=== PATIENT | female | born 1995 | race Caucasian/White ===

== ENCOUNTER → 2017-07-23 20:07 | Outpatient (CLI) | payer OTHER, SELFPAY ==
[2017-08-01 10:03] LABS: HPV Reflexed? NOT INDICATED
== END ==
PROVIDERS: PCP Obstetrics & Gynecology; Visit Provider Obstetrics & Gynecology
DX: Z12.4 Encounter for screening for malignant neoplasm of cervix (principal)
CPT/HCPCS: 88175; G0145

== ENCOUNTER → 2017-08-16 18:33 | Outpatient (CLI) | payer OTHER, SELFPAY ==
--- NOTE | 2017-08-16 11:00 | CER_PTH ---
PATIENT: LASHA CARR LOC: [facility] U#:[id number] AGE/SX: 29/F ROOM: RE08/16/[address]: Dr. Ilsa Figueroa MD : 1995 BED: DIS: SPEC #: [id number] RECD: 08/16/17 18:27 STATUS: SARAH MELANIE #: [id number] KENDAL: 08/16/17 11:[address]: Ilsa Figueroa DEPT: SURGICAL PATHOLOGY RECD BY: Colt Castillo Tissues: A - Uterine cervix, NOS B - Uterine cervix, NOS C - Endocervical Procedures: Surgery Specimen Level IV HEADER OPERATION: Colposcopy PRE-OP DIAGNOSIS: Abnormal pap TISSUE SUBMITTED: A ? 11 o?clock, B ? 3 o?clock, C - ECC MICROSCOPIC DIAGNOSIS A. Cervix, 11 o?clock, biopsy: Fragment of benign ecto- and endocervical mucosa with acute and chronic inflammation, negative for dysplasia. B. Cervix, 3 o?clock, biopsy: Fragment of benign ecto- and endocervical mucosa, negative for dysplasia. C. ECC: Scant minute fragment of benign endocervical epithelium, negative for dysplasia. CLIFTON:susanne 08/20/17 MICROSCOPIC DESCRIPTION Slides are reviewed. GROSS DESCRIPTION A - Received in fixative is one container labeled with the patient's name and designated 11 o'clock. The specimen consists of one irregular fragment of light escboedo soft tissue that measures 0.2 x 0.2 x 0.1 cm. The specimen is totally submitted in one cassette. B - Received in fixative is one container labeled with the patient's name and designated 3 o'clock. The specimen consists of one irregular fragment of light escobedo soft tissue that measures 0.5 x 0.4 x 0.1 cm. The specimen is totally submitted in one cassette. C - Received in fixative is one container labeled with the patient's name and designated ECC. The specimen consists of multiple irregular fragments of escobedo mucoid tissue that in aggregate measure 0.5 x 0.5 x 0.1 cm. The specimen is totally submitted in one cassette. / CLIFTON:susanne 08/19/17 TC:3 CPT: 87835 x3
== END ==
PROVIDERS: Visit Provider Obstetrics & Gynecology
DX: R87.611 Atypical squamous cells cannot exclude high grade squamous intraepithelial lesion on cytologic smear of cervix (ASC-H) (principal)
CPT/HCPCS: 88305

== ENCOUNTER → 2018-02-28 18:31 | Outpatient (CLI) | payer OTHER, SELFPAY ==
[2018-02-28 15:12] VITALS: BMI 28.2
[2018-03-06 08:50] LABS: HPV Reflexed? NOT INDICATED
== END ==
PROVIDERS: Referring Provider Obstetrics & Gynecology; Visit Provider Obstetrics & Gynecology
DX: Z12.4 Encounter for screening for malignant neoplasm of cervix (principal)
CPT/HCPCS: 87624; 88175; G0145

== ENCOUNTER → 2018-09-16 | Outpatient (CLI) | payer OTHER, SELFPAY ==
[2018-09-16 08:33] VITALS: BMI 28.2
[2018-09-22 12:25] LABS: HPV APTIMA, High Risk Negative (Negative)
[2018-09-22 13:27] LABS: HPV Reflexed? YES, CHARGE PATIENT
== END | disposition home or self-care (01) ==
LOC: LABSPEC 13:11
PROVIDERS: Referring Provider Obstetrics & Gynecology; Visit Provider Obstetrics & Gynecology
DX: R87.611 Atypical squamous cells cannot exclude high grade squamous intraepithelial lesion on cytologic smear of cervix (ASC-H) (principal)
CPT/HCPCS: 87624; 88175; G0145

== ENCOUNTER → 2019-06-22 | Outpatient (CLI) | payer OTHER, SELFPAY ==
[2019-06-22 15:44] VITALS: BMI 28.2
[2019-06-23 09:01] LABS: Amphetamine Urine VISTA NEGATIVE (<1000 ng/mL); Barbiturate Urine VISTA NEGATIVE (< 200 ng/mL); Benzodiazepine Urine VISTA NEGATIVE (< 200 ng/mL); Cocaine Urine VISTA NEGATIVE (< 300 ng/mL); Ecstacy Urine VISTA NEGATIVE (< 500 ng/mL); Methadone Urine VISTA NEGATIVE (< 300 ng/mL); PCP Urine VISTA NEGATIVE (< 25 ng/mL); THC Urine VISTA NEGATIVE (< 50 ng/mL); Vista UDS pH Range 6
[2019-06-23 11:57] LABS: Chlamydia Trachomatis by PCR Negative (Negative); Neisserai gonorrhoeae by PCR Negative (Negative); Specimen Processing Control PASS
[2019-06-23 11:58] LABS: Probe Check PASS; Sample Adequacy Control PASS
== END | disposition home or self-care (01) ==
LOC: LABSPEC 06-23 08:22
PROVIDERS: Visit Provider Obstetrics & Gynecology
DX: Z34.90 Encounter for supervision of normal pregnancy, unspecified, unspecified trimester (principal)
CPT/HCPCS: 80307; 87086; 87088; 87491; 87591

== ENCOUNTER → 2019-06-22 | Outpatient (CLI) | payer OTHER, SELFPAY ==
[2019-06-22 15:44] VITALS: BMI 28.2
[2019-06-22 16:58] LABS: Absolute Neutrophil Count 10.3 X10^3/uL (2.0-7.7); Basophil# 0.06 X10^3/uL; Basophil% 0.5 % (0-1); Eosinophil# 0.08 X10^3/uL; Eosinophils% 0.6 % (0-5); Hematocrit 40.7 % (37-47); Lymphocyte % 12.5 % (19-41); Mean Corp Hgb Conc 34.4 g/dL (32-36); Mean Corpuscular Hgb 29.2 pg (27.0-32.0); Mean Platelet Vol. 9.5 fl (6.2-12.0); Monocyte% 5.5 % (0-10); NRBC Flagged by Analyzer 0 % (0-5); Neutrophil # 10.34 X10^3/uL (2.7-7.7); Neutrophil % 80.5 % (47-70); Platelet Count 143 K/mm3 (150-450); RBC Distribution Width CV 11.9 % (11.6-14.6); RBC Distribution Width SD 36.7 fl (35.1-43.9); Red Blood Count 4.79 M/mm3 (4.2-5.4); White Blood Count 12.8 K/mm3 (4.4-11.0)
[2019-06-23 09:19] LABS: HIV - WCH Non-Reactive (Nonreactive); Hepatitis B Surface Antigen Non-Reactive (Nonreactive); Hepatitis C Antibody Non-Reactive (Nonreactive); Rubella IgG 8.7 IU/mL
[2019-06-24 23:59] LABS: Rapid Plasmin Reagin (RPR) NONREACTIVE (NONREACTIVE)
== END | disposition home or self-care (01) ==
LOC: LAB 16:37
PROVIDERS: Referring Provider Obstetrics & Gynecology; Visit Provider Obstetrics & Gynecology
DX: Z34.90 Encounter for supervision of normal pregnancy, unspecified, unspecified trimester (principal)
CPT/HCPCS: 36415; 85025; 86592; 86703; 86762; 86803; 86850; 86900; 86901; 87340

== ENCOUNTER → 2019-08-25 | Outpatient (CLI) | payer OTHER, SELFPAY ==
[2019-07-22 11:19] VITALS: BMI 28.2
[2019-08-20 13:28] VITALS: BMI 28.2
--- NOTE | 2019-08-25 12:29 | US_ITS ---
STUDY: SECOND AND THIRD TRIMESTER OBSTETRICAL ULTRASOUND REASON FOR EXAM: Female, 23 years old ANATOMY routine survey LMP: 04/10/2019 TECHNIQUE: Transabdominal TECHNICAL QUALITY: Adequate. PRIOR ULTRASOUND: None. FINDINGS: There is a single intrauterine fetus. The fetus is in a breech presentation. There is demonstrated cardiac activity with a heart rate of 160 bpm. There is a normal amniotic fluid volume. The largest amniotic fluid pocket measures 4.9 x 3.5 cm. . The placenta is anterior in location and is not low lying. There are Grade 1 placental changes. Incidental note is made of a 1.5 cm placental reeves. The cervix measures 4.7 cm in length. The adnexal regions are not visualized. BIOMETRY: BPD: 4.21 cm: 18 weeks, 5 days HC: 15.96 cm: 18 weeks, 5 days AC: 14.08 cm: 19 weeks, 3 days FL: 2.97 cm: 19 weeks, 1 days OFD 5.56 cm: 19 weeks, 2 days age by current US: 19 weeks, 1 days. SOPHIA by current US: 01/18/2020. Estimated weight: 282 grams, +/- 42 grams, 34.5 %. Age by LMP: 19 weeks, 4 days. SOPHIA by LMP: 01/15/2020. ANATOMY: Gender: Male Cranium: Normal lateral ventricles. Normal choroid plexus. Normal cerebellum. Normal cisterna magna. Normal face, nose and lips. Chest: Normal 4-chamber heart. Abdomen/Pelvis: Normal diaphragm. Normal stomach. Normal abdominal wall. Normal cord insertion. Normal 3 vessel cord. Normal kidneys. Normal bladder. Spine: Normal cervical spine. Normal thoracic spine. Normal lumbar spine. Normal sacrum. Extremities: Normal bilateral upper extremities. Normal bilateral lower extremities. US/OB Anatomy Scan IMPRESSION: Single live intrauterine 19 weeks, 1 day by current ultrasound with SOPHIA of 01/18/2020. Heart rate of 160 bpm. No suspicious sonographic findings. Incidental note is made of a 1.5 cm placental reeves which could be followed on subsequent routine follow-up ultrasounds. Presentation of the fetus on this study is breech Electronically Signed: Raul Jones MD at 7:36 EDT , Service support ,
== END | disposition home or self-care (01) ==
PROVIDERS: Referring Provider Obstetrics & Gynecology; Visit Provider Obstetrics & Gynecology
DX: Z36.9 Encounter for antenatal screening, unspecified (principal)
CPT/HCPCS: 76805

== ENCOUNTER → 2019-10-29 | Outpatient (CLI) | payer OTHER, SELFPAY ==
[2019-10-15 08:18] VITALS: BMI 28.2
[2019-10-29 10:05] LABS: Absolute Lymphocyte Count 1.08 X10^3/uL (0.83-4.51); Absolute Neutrophil Count 8.7 X10^3/uL (2.0-7.7); Basophil# 0.04 X10^3/uL; Basophil% 0.4 % (0-1); Eosinophil# 0.08 X10^3/uL; Eosinophils% 0.8 % (0-5); Hematocrit 37.2 % (37-47); Hemoglobin 12.6 g/dL (12.0-15.0); Lymphocyte # 1.08 X10^3/ul (4.0); Lymphocyte % 10.3 % (19-41); Mean Corp Hgb Conc 33.9 g/dL (32-36); Mean Corpuscular Hgb 31.3 pg (27.0-32.0); Mean Corpuscular Volume 92.3 fL (81-99); Mean Platelet Vol. 9.3 fl (6.2-12.0); Monocyte# 0.46 X10^3/uL; Monocyte% 4.4 % (0-10); NRBC Flagged by Analyzer 0 % (0-5); Neutrophil # 8.71 X10^3/uL (2.7-7.7); Neutrophil % 82.8 % (47-70); Platelet Count 114 K/mm3 (150-450); RBC Distribution Width CV 12.4 % (11.6-14.6); RBC Distribution Width SD 41.8 fl (35.1-43.9); Red Blood Count 4.03 M/mm3 (4.2-5.4); White Blood Count 10.5 K/mm3 (4.4-11.0)
[2019-10-29 10:22] LABS: Glucose Challenge Gest 1H 50g 129 mg/dL (70-140)
== END | disposition home or self-care (01) ==
LOC: PAVLAB 09:48
PROVIDERS: Obstetrics & Gynecology; Referring Provider Obstetrics & Gynecology; Visit Provider Obstetrics & Gynecology
DX: O09.90 Supervision of high risk pregnancy, unspecified, unspecified trimester (principal); Z36.89 Encounter for other specified antenatal screening; Z3A.00 Weeks of gestation of pregnancy not specified
CPT/HCPCS: 36415; 82950; 85025

== ENCOUNTER → 2019-12-24 | Outpatient (CLI) | payer OTHER, SELFPAY ==
[2019-12-24 11:22] VITALS: BMI 36.5
== END | disposition home or self-care (01) ==
LOC: LABSPEC 13:18
PROVIDERS: Referring Provider Obstetrics & Gynecology; Visit Provider Obstetrics & Gynecology
DX: O09.90 Supervision of high risk pregnancy, unspecified, unspecified trimester (principal); Z3A.00 Weeks of gestation of pregnancy not specified
CPT/HCPCS: 87077; 87081; 87186

== ENCOUNTER → 2020-01-01 10:27 | Outpatient (CLI) | payer OTHER, SELFPAY ==
[2019-12-10 11:06] VITALS: BMI 28.2
[2019-12-31 10:31] VITALS: BMI 36.9
== END ==
PROVIDERS: Referring Provider Obstetrics & Gynecology; Visit Provider Obstetrics & Gynecology
DX: Z11.59 Encounter for screening for other viral diseases (principal)
CPT/HCPCS: 87635; C9803; U0003

== ENCOUNTER 2020-01-08 09:30 | Inpatient (IN) | payer OTHER, SELFPAY ==
[2019-12-24 11:22] VITALS: BMI 36.5
[2020-01-07 10:42] VITALS: BMI 36.6
[2020-01-08] VITALS (18 sets, daily range): BP systolic 98–136; BP diastolic 46–75; PULSE 88–112; RESP 13–16; TEMP 35.9–37; O2SAT 95–100; BMI 36.6
[2020-01-08] MEDS: Lactated Ringers 1,000 ML 999 ML IV (10:00)
[2020-01-08 10:23] LABS: Absolute Lymphocyte Count 1.04 X10^3/uL (0.83-4.51); Absolute Neutrophil Count 8.1 X10^3/uL (2.0-7.7); Basophil# 0.04 X10^3/uL; Basophil% 0.4 % (0-1); Eosinophil# 0.06 X10^3/uL; Eosinophils% 0.6 % (0-5); Hematocrit 40.8 % (37-47); Hemoglobin 13.5 g/dL (12.0-15.0); Lymphocyte # 1.04 X10^3/ul (4.0); Lymphocyte % 10.3 % (19-41); Mean Corp Hgb Conc 33.1 g/dL (32-36); Mean Corpuscular Hgb 30.4 pg (27.0-32.0); Mean Corpuscular Volume 91.9 fL (81-99); Mean Platelet Vol. 9.8 fl (6.2-12.0); Monocyte# 0.61 X10^3/uL; Monocyte% 6.1 % (0-10); NRBC Flagged by Analyzer 0 % (0-5); Neutrophil # 8.12 X10^3/uL (2.7-7.7); Neutrophil % 80.8 % (47-70); Platelet Count 101 K/mm3 (150-450); RBC Distribution Width CV 12.6 % (11.6-14.6); Red Blood Count 4.44 M/mm3 (4.2-5.4); White Blood Count 10.1 K/mm3 (4.4-11.0)
--- NOTE | 2020-01-08 11:15 | HP.PCM_ITS ---
- Problem List (1) 36 weeks gestation of Status: Acute Comment: covid testing ordered 12/23/19c (test completed on 01/01/20) negative results (2) Breech presentation Status: Acute Qualifiers: Comment: Baby persistently cathi breech on US. Discussed ECV vs. PCD. Patient desires primary at 39 weeks unless verts spontaneously before this time. (3) History of abnormal cervical Pap smear Status: Acute Comment: 09/19 nl pap neg hpv, plan repeat pap PP, previous ascus cannot exclude HGSIL (4) Influenza vaccination declined Status: Acute Comment: 11/26/2019sc (5) Positive GBS test Status: Acute (6) Status: Acute Qualifiers: Comment: declines carrier, genetic, and ntd screening. anatomy US normal (7) Rubella non-immune status, antepartum Status: Acute Comment: recommend disease avoidance, Needs MMR pp (8) Supervision of high-risk Status: Acute Qualifiers: Comment: PRR SOPHIA 01/15/20 Boy! Name undecided, Kana History and Physical Date of Admission: 01/08/20 Intake Vital Signs 01/07/20 Height 5 ft 7 in 01/07/20 Weight: 234 lb 01/07/20 BMI 36.6 01/07/20 BP 120/82 H Intake Visit Reasons: 38 WK OB Chief Complaint: est ob [employer] Required: No Is patient in pain?: No Allergies No Known Allergies Allergy (Verified 01/07/20 10:42) Medications vitamin#30 30 mg iron-10 mg iron-folic acid 1 mg-omg3 capsule cap PO 06/22/19 [History Confirmed 01/07/20] cetirizine 10 mg capsule 10 mg PO DAILY 08/20/19 [History Confirmed 01/07/20] famotidine 20 mg tablet 20 mg PO DAILY #30 tab 11/12/19 [Rx Confirmed 01/07/20] Last Menstral Period: 04/10/19 Zika: Zika virus screening: Negative : No PFSH PFSH Medical History Anxiety (Acute) Surgical History H/O knee surgery (Acute) Social History (Updated 01/07/20 @ 11:[address] Ilsa Figueroa MD) Smoking Status: Never smoker alcohol intake: current details: pre substance use type: does not use caffeine: Yes what type of physical activity do you participate in: walking seatbelt use: always do you feel safe at home: Yes additional social history: - Kana [employer] Pregancy History 1 Elective abortions Hx Para Spontaneous abortions Hx # Term Pregnancies Ectopic pregnancies Hx # Pregnancies Multiple births # of living children HPI 38 WK OB: Details: LASHA CARR is a 24 year old who presents for routine OB visit. planned cesaeran for breech tomorrow with Dr Simms. repeat US Breech today. OB Visit SOPHIA Calculator Estimated Delivery Date Method Current WG Current Estimate 01/15/20 LMP (Certain) 38w 6d Expected Delivery Route/Plan PCD unless cephalic by 39 weeks Labor Preferences- / classes: done labor support person: Kana pain management options preferred: desires natural labor, but agreeable to epidural. Trying to keep an open mind. cut cord/dad catch: cord only : Yes PP control planned: Considering OCPs discussed possible routes of delivery and associated risks: [] special requests: [] Specific Issue/Plans flu vaccine: declined tdap: consdering rhogam: NA LARC form signed: yes - declines Problem list reviewed and updated with the most current plan of care details and appropriate orders placed. Relevant counseling for the gestational age provided. Continue routine care and follow up unless otherwise noted in visit notes/problem list details Initial Weight: Not Recorded Date EGA Weight BP Urine Prot Glucose FHR FuHt Pres Dilation Effaced St Visit Note 07/22/19 14w 5d 205 lb 110/72 Negative Negative 152 MH-NO Vb, LOF. Reviewed labs, rubella nonimmune. Anatomy US scheduled. 08/20/19 18w 6d 208 lb 118/76 Negative Negative 164 MH-No VB, LOF. Starting to feel flutters. 09/17/19 22w 6d 116/78 Negative Negative 140 Sm- no vb lof good fm no regular ctx 10/15/19 26w 6d 110/80 Negative Negative GP - no LOF/VB/DFM/ctx. Having RLQ pain, but nontender on exam and parts palpable at site of pain. 10/29/19 28w 6d 224 lb 112/74 Negative Negative 150 28 GP - no LOF/VB/DFM/ctx. Doing well passed GTT. Wants to read more about TDAP. 11/12/19 30w 6d 120/72 Negative Negative 140 32 Breech SM- no vb lof good fm no regular ctx dec flu encouraged. 11/26/19 32w 6d 229 lb 120/74 Negative 1000 g/dL 148 33 Unstable MH-NO Vb, LOF. Good FM. Thinks baby turned. ?cephalic. US not available, check next visit. tdap. 12/10/19 34w 6d 232 lb 8 oz 138/80 Negative Negative 140 34 Breech GP - no LOF, VB, DFM, ctx. Remains cathi breech. Will discuss ECV next visit if still breech. 12/24/19 36w 6d 233 lb 118/86 Negative Negative 140 36 Breech GP - no LOF, VB, DFM, ctx. Baby remains breech. Discussed risks and benefits of ECV. Patient declines version. Plan PCD at 39 weeks unless patient verts spontaneously. 12/31/19 37w 6d 236 lb 112/82 140 37 Breech SM- no vb lof good fm no regular ctx 01/07/20 38w 6d 234 lb 120/82 Negative Negative 140 SM- scheduled for cs tomorrow consented ACOG Third Trimester Third Trimester: Pain Management Plans and Feeding; discussed Immediate Larc Diagnostics Diagnostics Diagnostics Glucose 1 Hr 50 gm 129 mg/dL (70-140) 10/29/19 Hgb 12.6 g/dL (12.0-15.0) 10/29/19 Hct 37.2 % (37-47) 10/29/19 Details: HIV: Urine Culture: Sequential Screen: NIPT Screen: ROS Const Reports system reviewed and no additional complaints, except as docu Card Reports system reviewed and no additional complaints, except as docu Resp Reports system reviewed and no additional complaints, except as docu GI Reports system reviewed and no additional complaints, except as docu, Reports nausea Reports system reviewed and no additional complaints, except as docu Musc Reports system reviewed and no additional complaints, except as docu Exam Const General: cooperative, healthy appearing, comfortable, anxious [facility] Head: normal to inspection Nose: external nose normal Face and sinus: normal facial exam Neck Neck: normal visual inspection, full ROM, no lymphadenopathy Thyroid: thyroid normal Chest Chest palpation & inspection: normal inspection of the chest Resp Effort & Inspection: normal respiratory effort GI Inspection: normal to inspection Palpation: soft, other (gravid uterus) Other: infant vertex and appropriate size for gestational age Other: Cervical Exam: Extrem General: pedal edema Results POC Urinalysis 2 Dip (Clinic) Office Urine Glucose Negative Last Edit by Sulema Dickerson on 01/07/20 10:5 3 Office Urine Protein Negative Last Edit by Sulema Dickerson on 01/07/20 10:5 3 Assessment & Plan Problems 1. Rubella non-immune status, antepartum O99.891; Z28.3 recommend disease avoidance, Needs MMR pp 2. Z34.90 declines carrier, genetic, and ntd screening. anatomy US normal 3. History of abnormal cervical Pap smear Z87.42 09/19 nl pap neg hpv, plan repeat pap PP, previous ascus cannot exclude HGSIL 4. Supervision of high-risk O. PRR SOPHIA 01/15/20 Boy! Name undecided, Kana 5. Influenza vaccination declined Z28.11/26/2019sc 6. 36 weeks gestation of Z3A.36 covid testing ordered 12/23/19c (test completed on 01/01/20) negative results 7. Breech presentation O32.1XX0 Baby persistently cathi breech on US. Discussed ECV vs. PCD. Patient desires primary at 39 weeks unless verts spontaneously before this time. 8. Positive GBS test B95.1 Plan plan LTCS for breech presentation Orders Orders: POC Urinalysis 2 Dip (Clinic) Today Coding Level of Care Code OB Routine Diagnoses Rubella non-immune status, antepartum O99.891; Z28.3 Z34.90 History of abnormal cervical Pap smear Z87.42 Supervision of high-risk O. Influenza vaccination declined Z. 36 weeks gestation of Z3A.36 Breech presentation O32.1XX0 Positive GBS test B95.1 UPDATE- I have seen the patient and performed any clinically relevant updates to the history and physical exam. Kasey Simms MD
[2020-01-08] MEDS: Acetaminophen 500 MG Tablet 1000 MG PO ×2 (12:08→18:39)
[2020-01-08] MEDS: Sodium Citrate/Citric Acid 30 ML UDC PO (12:09)
[2020-01-08] MEDS: Lactated Ringers 1,000 ML 150 ML IV (12:10)
[2020-01-08] MEDS: Cefazolin 2 GM in 0.9% Normal Saline 100 ML IV (12:10)
[2020-01-08] MEDS: Oxytocin 30 units/NS 500 ml 30 UNITS/500 ML IV.SOLN 167 UNITS IV (13:55)
[2020-01-08] MEDS: Lactated Ringers 1,000 ML 100 ML IV (17:00)
[2020-01-08] MEDS: Ketorolac 30 MG/ML Syringe IV (18:39)
--- NOTE | 2020-01-08 20:33 | PCM.OPRPT ---
Problem List (1) 36 weeks gestation of Status: Acute Comment: covid testing ordered 12/23/19c (test completed on 01/01/20) negative results (2) Breech presentation Status: Acute Qualifiers: Comment: Baby persistently cathi breech on US. Discussed ECV vs. PCD. Patient desires primary at 39 weeks unless verts spontaneously before this time. (3) History of abnormal cervical Pap smear Status: Acute Comment: 09/19 nl pap neg hpv, plan repeat pap PP, previous ascus cannot exclude HGSIL (4) Influenza vaccination declined Status: Acute Comment: 11/26/2019sc (5) Positive GBS test Status: Acute (6) Status: Acute Qualifiers: Comment: declines carrier, genetic, and ntd screening. anatomy US normal (7) Rubella non-immune status, antepartum Status: Acute Comment: recommend disease avoidance, Needs MMR pp (8) Supervision of high-risk Status: Acute Qualifiers: Comment: PRR SOPHIA 01/15/20 Boy! Name undecided, Kana Delivery Classification: Scheduled Final SOPHIA: 01/15/20 Final SOPHIA Source: LMP Gestational age: 39 Weeks and 0 Days Type of Anesthesia:: Spinal Special Medications: Ancef 2 g Date of Procedure: 01/08/20 Pre-Operative Diagnosis: Term , breech presentation Post-Operative Diagnosis: Same Indications: Heather Andres is a 24-year-old G1, P0 at 39 weeks gestation who presents for primary section for breech presentation. She was previously offered external cephalic version in the office and declined. The risks of the procedure were discussed with the patient in depth in the office and all questions were answered. Indications for : Breech Description of Procedure: The patient is a G1, P0 at 39 weeks gestation who presented for primary section for breech presentation. Spinal anesthesia was placed without difficulty. Gray catheter was placed. The patient was placed in the dorsal supine position with leftward tilt. Patient was prepped and draped in the normal sterile fashion. Pfannenstiel skin incision was made with the scalpel and carried through to the underlying layer of fascia with the scalpel. Fascia was nicked in the midline and the incision extended laterally. The rectus bellies were dissected off superiorly and inferiorly with out complication both sharply and bluntly. The peritoneum was entered digitally. The incision was stretched and a low transverse uterine incision was made with the scalpel. The breech was elevated out of the pelvis using using gentle pressure. Gentle traction was then used to deliver the baby to the level of the scapula. The arms were swept across the body. The Juamlqvlf-Ndqtera-Isut maneuver was utilized to deliver the head. The head delivered without difficulty. The cord was clamped and cut and the infant was handed off to awaiting nurse. The placenta was delivered spontaneously immediately following and was noted to be intact and have a three-vessel cord. The uterus was exteriorized cleared of all clots and debris, and the incision was closed in a double layer closure using #1 Monocryl. The ovaries and fallopian tubes were noted to be within normal limits. The uterus was returned to the maternal abdomen and gutters were cleared of all clots and debris. The peritoneum was closed with 3-0 Monocryl in a running fashion. Fascia was closed with 0 PDS in a running fashion. Subcutaneous tissue was copiously irrigated and the skin was closed with 3-0 Monocryl in a subcuticular fashion. Mepilex dressing was applied without complication. Patient was taken to recovery in stable condition. It was discussed with patient that based on the indication for primary and the fact that 2 layers were used on the uterus, she is a candidate for a trial of labor after in the future. Amniotic Membrane Rupture Type: Spontaneous Amniotic Fluid Description: Clear Placenta Disposition: [facility] Fluids Replaced: 700 Cord Entanglement: None Cord Vessel Description: 3 Vessels Esitmated Blood Loss (ml): 500 Infant Gender: Male Delayed cord clamping: Yes Antibiotic Given: Ancef 2 grams IV x1 Pt instructed on risks of surgery: Bleeding, Anesthesia Risks, Infection, Injury to surrounding structure(s) including bowel and bladder Complications: None - Admit VTE Documentation VTE Present on Admission: No Multi Select Codes - Urinary/Genital Urinary/Genital CPT Codes: 53502 Delivery [facility]
[2020-01-09] VITALS (9 sets, daily range): BP systolic 99–123; BP diastolic 45–73; PULSE 75–94; RESP 14–18; TEMP 36.1–36.8; O2SAT 95–99
[2020-01-09] MEDS: Ketorolac 30 MG/ML Syringe IV ×3 (00:59→12:33)
[2020-01-09] MEDS: Acetaminophen 500 MG Tablet 1000 MG PO ×4 (01:00→18:40)
[2020-01-09] MEDS: 0.9% Saline Lock 10 ML Syringe IV ×2 (05:53→12:32)
--- NOTE | 2020-01-09 06:11 | PCM.PN.OB ---
Patient Problems: Active and Suspected Problems (Last Reviewed 01/07/20 @ 10:42 by Sulema Dickerson) Positive GBS test (Acute) Breech presentation (Acute) Baby persistently cathi breech on US. Discussed ECV vs. PCD. Patient desires primary at 39 weeks unless verts spontaneously before this time. 36 weeks gestation of (Acute) covid testing ordered 12/23/19 (test completed on 01/01/20) negative results Influenza vaccination declined (Acute) 11/26/2019vt Supervision of high-risk (Acute) PRR SOPHIA 01/15/20 Boy! Name undecided, Kana History of abnormal cervical Pap smear (Acute) 09/19 nl pap neg hpv, plan repeat pap PP, previous ascus cannot exclude HGSIL (Acute) declines carrier, genetic, and ntd screening. anatomy US normal Rubella non-immune status, antepartum (Acute) recommend disease avoidance, Needs MMR pp Subjective: Patient doing well without complaints. Tolerating PO. Ambulating and voiding without difficulty. Breast feeding well. Denies chest pain, shortness of breath, calf pain/swelling, fevers, chills, lightheadedness. Objective: Laboratory Tests 01/08/20 01/08/20 Range/Units 10:00 10:00 WBC 10.1 (4.4-11.0) K/mm3 RBC 4.44 (4.2-5.4) M/mm3 Hgb 13.5 (12.0-15.0) g/dL Hct 40.8 (37-47) % MCV 91.9 (81-99) fL MCH 30.4 (27.0-32.0) pg MCHC 33.1 (32-36) g/dL RDW Std Deviation 43.0 (35.1-43.9) fl RDW Coeff of Rohan 12.6 (11.6-14.6) % Plt Count 101 L (150-450) K/mm3 MPV 9.8 (6.2-12.0) fl Immature Gran % (Auto) 1.800 H (0.0-0.9) % Neut % (Auto) 80.8 H (47-70) % Lymph % (Auto) 10.3 L (19-41) % [place] % (Auto) 6.1 (0-10) % Eos % (Auto) 0.6 (0-5) % Baso % (Auto) 0.4 (0-1) % Absolute Neuts (auto) 8.1 H (2.0-7.7) X10^3/uL Absolute Lymphs (auto) 1.04 (0.83-4.51) X10^3/uL Nucleated RBC % 0 (0-5) % Blood Type A POSITIVE Antibody Screen NEGATIVE - Physical Exam Vitals/I&O's: Vital Signs Temp Pulse Resp BP Pulse Ox 98.3 F 82 16 99/45 L 98 01/09/20 03:15 01/09/20 04:50 01/09/20 04:50 01/09/20 03:15 01/09/20 04:50 Oxygen Delivery Method Room Air Weight: 234 lb Body Mass Index (BMI) 36.6 Intake and Output for Last 24 Hours 01/07/20 01/08/20 01/09/20 23:59 23:59 23:59 Intake Total 2630 / 2630 1999 / 1999 Output Total 550 / 550 800 / 800 Balance 2079 / 0 1200 / 1200 General: Alert, Oriented x3, Cooperative, No apparent distress, Well developed, Well nourished HEENT: Atraumatic, PERRLA, EOMI, Normocephalic Neck: Supple, No JVD Lungs: Normal air movement Cardiovascular: Regular rate Abdomen: Soft, Non Tender, Non-Distended, - - incision c/d/i with dressing in place Extremities: No edema Neurological: Cranial nerves II-XII grossly intact, Neuro grossly intact Psych/Mental Status: Normal Affect, Appropriate Laboratory Results 01/08/20 10:00: WBC 10.1, RBC 4.44, Hgb 13.5, Hct 40.8, MCV 91.9, MCH 30.4, MCHC 33.1, RDW Std Deviation 43.0, RDW Coeff of Rohan 12.6, Plt Count 101 L, MPV 9.8, Immature Gran % (Auto) 1.800 H, Neut % (Auto) 80.8 H, Lymph % (Auto) 10.3 L, [place] % (Auto) 6.1, Eos % (Auto) 0.6, Baso % (Auto) 0.4, Absolute Neuts (auto) 8.1 H, Absolute Lymphs (auto) 1.04, Nucleated RBC % 0 01/08/20 10:00: Blood Type A POSITIVE, Antibody Screen NEGATIVE Current Medications Acetaminophen (Acetaminophen 500 Mg Tablet) 1,000 mg PO Q6 [facility] Last Admin: 01/09/20 05:52 Dose: 1,000 mg Documented by: Bisacodyl (Bisacodyl 10 Mg Suppository) 10 mg RECTAL UD PRN PRN Reason: If no BM Diphenhydramine HCl (Diphenhydramine 25 Mg Capsule) 25 mg PO Q6H PRN PRN PRN Reason: ITCHING Stop: 01/09/20 12:11 Famotidine (Famotidine 20 Mg Tablet) 20 mg PO DAILY [facility] Hydrocortisone (Hydrocortisone 2.5% Crm) 1 applic TOPICAL TID PRN PRN; Protocol PRN Reason: Discomfort Lactated Ringer's () 1,000 mls @ 100 mls/hr IV .Q10H [facility] Last Admin: 01/09/20 04:51 Dose: Not Given Documented by: Ketorolac Tromethamine (Ketorolac 30 Mg/Ml Syringe) 30 mg IV Q6H [facility] Stop: 01/09/20 12:01 Last Admin: 01/09/20 05:53 Dose: 30 mg Documented by: Loratadine (Loratadine 10 Mg Tablet) 10 mg PO DAILY [facility] Methylergonovine Maleate (Methylergonovine 0.2 Mg/Ml Ampul) 0.2 mg IM X1 PRN PRN Reason: Uterine Atony Nalbuphine HCl (Nalbuphine 10 Mg/Ml Ampul) 5 mg IV Q3H PRN PRN PRN Reason: ITCHING Stop: 01/09/20 12:11 Naloxone HCl (Naloxone 0.4 Mg/Ml Syringe) 0.02 mg IV Q1M PRN PRN Reason: RR <10 and pt unresponsive Ondansetron HCl (Ondansetron 4 Mg/2 Ml Vial) 4 mg IV Q4H PRN PRN PRN Reason: Nausea Oxycodone HCl (Oxycodone 5 Mg Tablet) 5 - 10 mg PO Q4H PRN PRN PRN Reason: Pain Score 4-10 Prochlorperazine Edisylate (Prochlorperazine 10 Mg/2 Ml Vial) 10 mg IV Q6H PRN PRN PRN Reason: NAUSEA Senna/Docusate Sodium (Senna/Docusate Sodium 1 Tablet) 0 tablet PO DAILY [facility] Simethicone (Simethicone 80 Mg Tablet) 80 mg PO PCHS PRN PRN Reason: Indigestion/stomach pain Sodium Chloride (0.9% Saline Lock 10 Ml Syringe) 5 - 15 ml IV UD PRN PRN Reason: SALINE FLUSH Last Admin: 01/09/20 05:53 Dose: 10 ml Documented by: Medical Necessity - Tobacco Use Smoking Status: Never smoker Assessment/Plan All Active Problems (Last Reviewed 01/07/20 @ 10:42 by Sulema Dickerson) Positive GBS test (Acute) Breech presentation (Acute) 36 weeks gestation of (Acute) Influenza vaccination declined (Acute) Supervision of high-risk (Acute) History of abnormal cervical Pap smear (Acute) (Acute) Rubella non-immune status, antepartum (Acute) s/p LTCS PPD # 1 1. routine post care 2. breast feeding- support given 3. rh positive 4. rubella immune
--- NOTE | 2020-01-09 06:12 | DCINST_ITS ---
Discharge Diet: No Restrictions Discharge Activity: May Not Drive - for 2 weeks or while taking narcotic pain meds., May Shower, May Take a Tub Bath - in 7 days. May resume sexual activity in: 4-6 weeks Lifting Restrictions: 20 pounds Additional Activity Instructions:: Nothing in the vagina for 4-6 weeks. You may return to work/school in 6 weeks. Call your doctor if your incision/area has: Continuous Slow Oozing, Sudden Increased Bleeding, Increased Pain/ Swelling, Increased Redness, Foul Smelling Discharge Call your doctor if you observe: Fever of 101 or Higher Suture Line Care: Avoid Pulling/Pushing, Avoid Pinching/Bending Additional Instructions: If you experience any of the following, contact your healthcare provider. * Bleeding that soaks a pad every hour for 2 hours * Fever 100.4 or higher * Unrelieved incision or abdominal pain * Swelling, redness, discharge or bleeding from your incision or episiotomy site * Your incision begins to separate * Problems urinating (including inability to urinate or burning while urinating). * Visual changes * Severe headache * Flu-like symptoms * Pain or redness in one of both of your breasts * Pain, warmth, tenderness or swelling in your legs, especially the calf area * Frequent nausea and vomiting * Symptoms of depression or anxiety If you experience any of the following, call 911 or go to the nearest Emergency Room. * Chest pain * Problems breathing * Seizure activity * Partial or complete paralysis of a body part, slurred speech, weakness or drooping of the face, or a sudden inability to walk or hold your balance Allergies/Adverse Reactions: Allergies No Known Allergies Allergy (Verified 01/07/20 10:42) Medications to take at Discharge vitamin#30 30 mg iron-10 mg iron-folic acid 1 mg-omg3 capsule cap PO 06/22/19 cetirizine 10 mg capsule 10 mg PO DAILY 08/20/19 Famotidine 20 mg PO DAILY 01/08/20 Follow-Up: Call to make an appointment with your doctor for an incision check in 1-2 weeks. You will also need a 6 week post- follow up appointment. Test results from this visit will be discussed in further detail at your follow- up appointment, if applicable. Please Follow Up With: Kasey Simms MD When: 2 weeks Primary Care Physician: Care Physician,No Primary [Primary Care Provider] -
[2020-01-09 06:17] LABS: Hematocrit 33.8 % (37-47); Hemoglobin 11.1 g/dL (12.0-15.0); Mean Corp Hgb Conc 32.8 g/dL (32-36); Mean Corpuscular Hgb 30.8 pg (27.0-32.0); Mean Corpuscular Volume 93.9 fL (81-99); Mean Platelet Vol. 9.7 fl (6.2-12.0); POSITIVE COUNT YES; Platelet Count 96 K/mm3 (150-450); RBC Distribution Width CV 12.7 % (11.6-14.6); RBC Distribution Width SD 43.8 fl (35.1-43.9); White Blood Count 10.3 K/mm3 (4.4-11.0)
[2020-01-09 06:36] LABS: Scan Indicated on CBC? Y/N YES- FLAGS NOTED
[2020-01-09] MEDS: Loratadine 10 MG Tablet PO (10:38)
[2020-01-09] MEDS: Famotidine 20 MG Tablet PO (10:38)
[2020-01-09] MEDS: Senna/Docusate Sodium 1 Tablet PO (10:38)
--- NOTE | 2020-01-09 14:00 | CASEMGMT ---
Social Work Brief Assessment Labor and Delivery Unit Refer documentation below for further details. Date of Referral/Notification: 01/08/2020 Time of Referral: 15:03 Reason for Referral: MOB with history of anxiety Date of Intervention: 01/09/2020 Time of Intervention: 14:00 Informant: Medical record and mother of baby (MOB) Assessment: Met with MOB and FOB in room. Introduced role and reason for referral. MOB reports baby boy, Oh is their first child and is bonding well with baby. MOB reports is breast feeding and it is going OK. MOB concerned with baby's latching. MOB openly discussed history of anxiety. MOB reports has never been treated with medication and has learned how to cope with things I cannot control. MOB reports has learned ways to cope on her own with anxiety. Education reviewed on Post Depression signs and symptoms and informational packet provided. MOB and FOB deny any issues or concerns. Collaboration with MOB's nurse who denies any concerns. Plan: Home with resources provided. No further needs requested or indicated. Mahnaz Ingram, CHILD WELFARE ASSISTANT, THERMIT WELDING MACHINE OPERATOR
--- NOTE | 2020-01-09 15:26 | NURSING ---
patient is rubella non-immune, MMR VIS given to patient. She states she will read over it, unsure if wants vaccine at this time.
[2020-01-09] MEDS: Ibuprofen 600 MG Tablet PO (18:38)
[2020-01-10] MEDS: Acetaminophen 500 MG Tablet 1000 MG PO ×3 (01:01→12:33)
[2020-01-10] MEDS: Ibuprofen 600 MG Tablet PO ×3 (01:01→12:33)
[2020-01-10 01:50] VITALS: BP 109/70; PULSE 83; RESP 14; TEMP 36.2
--- NOTE | 2020-01-10 03:09 | NURSING ---
this RN gave report to aorr RN. that RN to assume care of pt at this time.
--- NOTE | 2020-01-10 03:16 | NURSING ---
This RN assuming care of patient at this time. Received report from Vandana THOMAS.
[2020-01-10 07:40] VITALS: BP 114/63; PULSE 82; RESP 18; TEMP 36.1; O2SAT 97
--- NOTE | 2020-01-10 09:26 | PN.OBGYN_ITS ---
Patient Problems: Active and Suspected Problems (Last Reviewed 01/07/20 @ 10:42 by Sulema Dickerson) Positive GBS test (Acute) Breech presentation (Acute) Baby persistently cathi breech on US. Discussed ECV vs. PCD. Patient desires primary at 39 weeks unless verts spontaneously before this time. 36 weeks gestation of (Acute) covid testing ordered 12/23/19 (test completed on 01/01/20) negative results Influenza vaccination declined (Acute) 11/26/2019ga Supervision of high-risk (Acute) PRR SOPHIA 01/15/20 Boy! Name undecided, Kana History of abnormal cervical Pap smear (Acute) 09/19 nl pap neg hpv, plan repeat pap PP, previous ascus cannot exclude HGSIL (Acute) declines carrier, genetic, and ntd screening. anatomy US normal Rubella non-immune status, antepartum (Acute) recommend disease avoidance, Needs MMR pp Subjective: Patient doing well without complaints. Tolerating PO. Ambulating and voiding without difficulty. Breast feeding well. Denies chest pain, shortness of breath, calf pain/swelling, fevers, chills, lightheadedness. Objective: Laboratory Tests 01/09/20 01/08/20 01/08/20 Range/Units 06:00 10:00 10:00 WBC 10.3 10.1 (4.4-11.0) K/mm3 RBC 3.60 L 4.44 (4.2-5.4) M/mm3 Hgb 11.1 L 13.5 (12.0-15.0) g/dL Hct 33.8 L 40.8 (37-47) % MCV 93.9 91.9 (81-99) fL MCH 30.8 30.4 (27.0-32.0) pg MCHC 32.8 33.1 (32-36) g/dL RDW Std Deviation 43.8 43.0 (35.1-43.9) fl RDW Coeff of Rohan 12.7 12.6 (11.6-14.6) % Plt Count 96 L 101 L (150-450) K/mm3 MPV 9.7 9.8 (6.2-12.0) fl Immature Gran % (Auto) 1.800 H (0.0-0.9) % Neut % (Auto) 80.8 H (47-70) % Lymph % (Auto) 10.3 L (19-41) % Ogle % (Auto) 6.1 (0-10) % Eos % (Auto) 0.6 (0-5) % Baso % (Auto) 0.4 (0-1) % Absolute Neuts (auto) 8.1 H (2.0-7.7) X10^3/uL Absolute Lymphs (auto) 1.04 (0.83-4.51) X10^3/uL Nucleated RBC % 0 (0-5) % Differential Comment COMMENT Blood Type A POSITIVE Antibody Screen NEGATIVE - Physical Exam Vitals/I&O's: Vital Signs Temp Pulse Resp BP Pulse Ox 96.9 F L 82 18 114/63 97 01/10/20 07:40 01/10/20 07:40 01/10/20 07:40 01/10/20 07:40 01/10/20 07:40 Oxygen Delivery Method Room Air Weight: 234 lb Body Mass Index (BMI) 36.6 Intake and Output for Last 24 Hours 01/08/20 01/09/20 01/10/20 23:59 23:59 23:59 Intake Total 2630 / 2630 2000 / 2000 600 / 600 Output Total 550 / 550 1600 / 1600 Balance 2080 / 2080 400 / 400 600 / 600 General: Alert, Oriented x3, Cooperative, No apparent distress, Well developed, Well nourished HEENT: Atraumatic, PERRLA, EOMI, Normocephalic Neck: Supple, No JVD Lungs: Normal air movement Cardiovascular: Regular rate Abdomen: Soft, Non Tender, Non-Distended, - - incision c/d/i Extremities: No edema, No Calf Tenderness Neurological: Cranial nerves II-XII grossly intact, Neuro grossly intact Psych/Mental Status: Normal Affect, Appropriate Current Medications Acetaminophen (Acetaminophen 500 Mg Tablet) 1,000 mg PO Q6 [facility] Last Admin: 01/10/20 06:52 Dose: 1,000 mg Documented by: Bisacodyl (Bisacodyl 10 Mg Suppository) 10 mg RECTAL UD PRN PRN Reason: If no BM Famotidine (Famotidine 20 Mg Tablet) 20 mg PO DAILY [facility] Last Admin: 01/09/20 10:38 Dose: 20 mg Documented by: Hydrocortisone (Hydrocortisone 2.5% Crm) 1 applic TOPICAL TID PRN PRN; Protocol PRN Reason: Discomfort Ibuprofen (Ibuprofen 600 Mg Tablet) 600 mg PO Q6 [facility] Last Admin: 01/10/20 06:52 Dose: 600 mg Documented by: Loratadine (Loratadine 10 Mg Tablet) 10 mg PO DAILY [facility] Last Admin: 01/09/20 10:38 Dose: 10 mg Documented by: Methylergonovine Maleate (Methylergonovine 0.2 Mg/Ml Ampul) 0.2 mg IM X1 PRN PRN Reason: Uterine Atony Naloxone HCl (Naloxone 0.4 Mg/Ml Syringe) 0.02 mg IV Q1M PRN PRN Reason: RR <10 and pt unresponsive Ondansetron HCl (Ondansetron 4 Mg/2 Ml Vial) 4 mg IV Q4H PRN PRN PRN Reason: Nausea Oxycodone HCl (Oxycodone 5 Mg Tablet) 5 - 10 mg PO Q4H PRN PRN PRN Reason: Pain Score 4-10 Prochlorperazine Edisylate (Prochlorperazine 10 Mg/2 Ml Vial) 10 mg IV Q6H PRN PRN PRN Reason: NAUSEA Senna/Docusate Sodium (Senna/Docusate Sodium 1 Tablet) 0 tablet PO DAILY [facility] Last Admin: 01/09/20 10:38 Dose: 1 tablet Documented by: Simethicone (Simethicone 80 Mg Tablet) 80 mg PO PCHS PRN PRN Reason: Indigestion/stomach pain Sodium Chloride (0.9% Saline Lock 10 Ml Syringe) 5 - 15 ml IV UD PRN PRN Reason: SALINE FLUSH Last Admin: 01/09/20 12:32 Dose: 10 ml Documented by: Medical Necessity - Tobacco Use Smoking Status: Never smoker Assessment/Plan All Active Problems (Last Reviewed 01/07/20 @ 10:42 by Sulema Dickerson) Positive GBS test (Acute) Breech presentation (Acute) 36 weeks gestation of (Acute) Influenza vaccination declined (Acute) Supervision of high-risk (Acute) History of abnormal cervical Pap smear (Acute) (Acute) Rubella non-immune status, antepartum (Acute) s/p LTCS PPD # 2 1. routine post care 2. breast feeding- support given 3. rh positive 4. rubella immune
[2020-01-10] MEDS: Senna/Docusate Sodium 1 Tablet PO (10:07)
[2020-01-10] MEDS: Famotidine 20 MG Tablet PO (10:07)
[2020-01-10] MEDS: Loratadine 10 MG Tablet PO (10:08)
[2020-01-10 12:35] VITALS: BP 117/72; PULSE 83; RESP 16; TEMP 36.2; O2SAT 97
--- NOTE | 2020-01-10 16:06 | NURSING ---
PT DECLINED MMR VACCINE
== END 2020-01-10 16:25 | disposition home or self-care (01) | DRG 787 ==
PROVIDERS: Admitting Provider Obstetrics & Gynecology; Referring Provider Obstetrics & Gynecology; Visit Provider Obstetrics & Gynecology
PROC: 10D00Z1 Extraction of Products of Conception, Low, Open Approach (ICD-10-PCS; CPT 59514; principal; 2020-01-08 11:45)
DX: O32.1XX0 Maternal care for breech presentation, not applicable or unspecified (principal); O98.82 Other maternal infectious and parasitic diseases complicating childbirth; B95.1 Streptococcus, group B, as the cause of diseases classified elsewhere; Z3A.39 39 weeks gestation of pregnancy; Z37.0 Single live birth
CPT/HCPCS: 85025; 85027; 86850; 86900; 86901; 99218; J7120; A4216; G0378; J2405

== ENCOUNTER → 2020-01-21 12:16 | Outpatient (CLI) | payer OTHER, SELFPAY ==
[2020-01-08 09:37] VITALS: BMI 36.6
== END ==
PROVIDERS: Visit Provider Nurse Practitioner Women's Health
DX: R30.9 Painful micturition, unspecified (principal)
CPT/HCPCS: 87086; 87088

== ENCOUNTER → 2020-02-17 | Outpatient (CLI) | payer OTHER, SELFPAY ==
[2020-02-17 11:25] VITALS: BMI 33.2
== END | disposition home or self-care (01) ==
PROVIDERS: Referring Provider Obstetrics & Gynecology; Visit Provider Obstetrics & Gynecology
DX: Z12.4 Encounter for screening for malignant neoplasm of cervix (principal)

== ENCOUNTER → 2021-03-06 | Outpatient (CLI) | payer OTHER, SELFPAY ==
[2021-03-06 14:02] LABS: Vitamin D,25 Hydroxy 34.9 ng/mL
[2021-03-10 14:09] LABS: HPV Reflexed? NOT INDICATED
== END | disposition short-term general hospital (02) ==
PROVIDERS: Referring Provider Nurse Practitioner Women's Health; Visit Provider Nurse Practitioner Women's Health
DX: Z12.4 Encounter for screening for malignant neoplasm of cervix (principal); Z13.21 Encounter for screening for nutritional disorder; Z13.29 Encounter for screening for other suspected endocrine disorder
CPT/HCPCS: 36415; 82306; 84443; 88175; G0145

== ENCOUNTER → 2022-02-28 | Outpatient (CLI) | payer OTHER, SELFPAY ==
--- NOTE | 2022-02-28 18:32 | US_ITS ---
STUDY: FIRST TRIMESTER OBSTETRICAL ULTRASOUND REASON FOR EXAM: Female, 26 years old VIABILITY LMP: 01/10/2022 TECHNIQUE: Transvaginal TECHNICAL QUALITY: Adequate. PRIOR ULTRASOUND: None. FINDINGS: There is visualization of a single gestational sac in a normal intrauterine position. The mean sac diameter (MSD) measures 30 mm, indicating an estimated gestational age (EGA) of 8 weeks, 1 days. The gestational sac shape is within normal limits. Small adjacent subchorionic hemorrhage (implantation bleed). There is a visualized yolk sac. The yolk sac measures 2 mm. The placenta is non-visualized. There is visualization of a live embryo. The crown-rump length (CRL) measures 14 mm, indicating an estimated gestational age (EGA) of 7 weeks, 5 days. There is demonstrated cardiac activity with a heart rate of 161 bpm. The estimated gestation age (EGA) by LMP is 7 weeks, 0 days. The estimated date of delivery (SOPHIA) by LMP is 10/17/2022. The estimated gestation age (EGA) by US is 8 weeks, 0 days. The estimated date of delivery (SOPHIA) by US is 10/10/2022. The uterus measures 9.8 x 6.6 x 5.6 cm. There is no demonstrated uterine fibroid. The cervix is closed. The right ovary measures 3.3 x 2.5 x 1.9 cm. There is no right ovarian cyst. There is no visualized right adnexal mass or complex lesion. The left ovary measures 4.0 x 2.1 x 2.3 cm. There is no left ovarian cyst. There is no visualized left adnexal mass or complex lesion. There is no fluid in the cul de sac. US/Transvaginal w/Preg US IMPRESSION: Living intrauterine of 8 weeks 0 days as described above. Small subchorionic hemorrhage (implantation bleed). Electronically Signed: Colt Bentley MD at 19:21 [facility] ,
== END | disposition home or self-care (01) ==
PROVIDERS: Visit Provider Nurse Practitioner Women's Health
DX: O20.8 Other hemorrhage in early pregnancy (principal); Z3A.08 8 weeks gestation of pregnancy
CPT/HCPCS: 76817

== ENCOUNTER → 2022-03-09 | Outpatient (CLI) | payer OTHER, SELFPAY ==
[2022-03-12 22:07] LABS: Chlamydia By Nucleic Acid AMP Negative (Negative)
[2022-03-15 21:38] LABS: Gonococcus By Nucleic Acid AMP Negative (Negative)
== END | disposition home or self-care (01) ==
LOC: LABSPEC 16:07
PROVIDERS: Referring Provider Obstetrics & Gynecology; Visit Provider Obstetrics & Gynecology
DX: Z34.90 Encounter for supervision of normal pregnancy, unspecified, unspecified trimester (principal)
CPT/HCPCS: 87086; 87491; 87591

== ENCOUNTER → 2022-04-06 | Outpatient (CLI) | payer OTHER, SELFPAY ==
[2022-04-06 09:19] LABS: Absolute Lymphocyte Count 1.09 X10^3/uL (0.83-4.51); Absolute Neutrophil Count 6.7 X10^3/uL (2.0-7.7); Basophil# 0.04 X10^3/uL; Basophil% 0.5 % (0-1); Eosinophil# 0.12 X10^3/uL; Eosinophils% 1.4 % (0-5); Hematocrit 38.7 % (37-47); Hemoglobin 13.2 g/dL (12.0-15.0); Lymphocyte # 1.09 X10^3/ul (0.83-4.51); Lymphocyte % 12.8 % (19-41); Mean Corp Hgb Conc 34.1 g/dL (32-36); Mean Corpuscular Hgb 29.9 pg (27.0-32.0); Mean Corpuscular Volume 87.8 fL (81-99); Mean Platelet Vol. 9.3 fl (6.2-12.0); Monocyte# 0.51 X10^3/uL; NRBC Flagged by Analyzer 0 % (0-5); Neutrophil % 78.8 % (47-70); Platelet Count 137 K/mm3 (150-450); RBC Distribution Width CV 12.1 % (11.6-14.6); Red Blood Count 4.41 M/mm3 (4.2-5.4); White Blood Count 8.5 K/mm3 (4.4-11.0)
[2022-04-06 09:34] LABS: Glucose Challenge Gest 1H 50g 126 mg/dL (70-140)
[2022-04-06 09:42] LABS: Amphetamine Urine VISTA NEGATIVE (<1000 ng/mL); Barbiturate Urine VISTA NEGATIVE (< 200 ng/mL); Benzodiazepine Urine VISTA NEGATIVE (< 200 ng/mL); Cocaine Urine VISTA NEGATIVE (< 300 ng/mL); Ecstacy Urine VISTA NEGATIVE (< 500 ng/mL); Methadone Urine VISTA NEGATIVE (< 300 ng/mL); PCP Urine VISTA NEGATIVE (< 25 ng/mL); THC Urine VISTA NEGATIVE (< 50 ng/mL); Vista UDS pH Range 5
[2022-04-06 10:41] LABS: HIV - WCH Non-Reactive (Nonreactive); Hepatitis B Surface Antigen Non-Reactive (Nonreactive); Hepatitis C Antibody Non-Reactive (Nonreactive); Rubella IgG Equiv (Nonreactive); Syphilis Antibodies Non-reactive
== END | disposition home or self-care (01) ==
LOC: PAVLAB 08:49
PROVIDERS: Referring Provider Obstetrics & Gynecology; Visit Provider Obstetrics & Gynecology
DX: Z34.90 Encounter for supervision of normal pregnancy, unspecified, unspecified trimester (principal)
CPT/HCPCS: 36415; 80307; 82950; 85025; 86703; 86762; 86780; 86803; 86850; 86900; 86901; 87340

== ENCOUNTER → 2022-05-02 | Outpatient (CLI) | payer OTHER, SELFPAY ==
[2022-05-02 09:01] LABS: Absolute Lymphocyte Count 1.58 X10^3/uL (0.83-4.51); Absolute Neutrophil Count 6.6 X10^3/uL (2.0-7.7); Basophil# 0.04 X10^3/uL; Basophil% 0.5 % (0-1); Eosinophils% 1.1 % (0-5); Hematocrit 37.1 % (37-47); Hemoglobin 12.8 g/dL (12.0-15.0); Lymphocyte # 1.58 X10^3/ul (0.83-4.51); Lymphocyte % 17.9 % (19-41); Mean Corp Hgb Conc 34.5 g/dL (32-36); Mean Corpuscular Hgb 30.4 pg (27.0-32.0); Mean Corpuscular Volume 88.1 fL (81-99); Mean Platelet Vol. 9.2 fl (6.2-12.0); Monocyte# 0.51 X10^3/uL; Monocyte% 5.8 % (0-10); NRBC Flagged by Analyzer 0 % (0-5); Neutrophil # 6.55 X10^3/uL (2.7-7.7); Platelet Count 150 K/mm3 (150-450); RBC Distribution Width CV 12.4 % (11.6-14.6); RBC Distribution Width SD 40.1 fl (35.1-43.9); Red Blood Count 4.21 M/mm3 (4.2-5.4); White Blood Count 8.8 K/mm3 (4.4-11.0)
== END | disposition home or self-care (01) ==
LOC: PAVLAB 08:40
PROVIDERS: Obstetrics & Gynecology; Referring Provider Obstetrics & Gynecology; Visit Provider Obstetrics & Gynecology
DX: D69.6 Thrombocytopenia, unspecified (principal)
CPT/HCPCS: 36415; 85025

== ENCOUNTER → 2022-05-23 | Outpatient (CLI) | payer OTHER, SELFPAY ==
--- NOTE | 2022-05-23 07:45 | US_ITS ---
STUDY: SECOND AND THIRD TRIMESTER OBSTETRICAL ULTRASOUND REASON FOR EXAM: Female, 26 years old . anatomy. LMP: January 03, 2022. TECHNIQUE: Transabdominal and Transvaginal TECHNICAL QUALITY: Adequate. PRIOR ULTRASOUND: None. FINDINGS: There is a single intrauterine fetus. The fetus is in a transverse lie with the head on the maternal right side. There is demonstrated cardiac activity with a heart rate of 143 bpm. There is a normal amniotic fluid volume. The largest amniotic fluid pocket measures 5.1 cm x 4 cm. The amniotic fluid index (PETE) is within normal limits. The placenta is posterior in location and is not low lying. There are Grade 0 placental changes. The cervix measures 4.8 cm in length. The bilateral adnexal regions are normal. BIOMETRY: BPD: 4.4 cm: 19 weeks, 2 days HC: 16.9 cm: 19 weeks, 4 days AC: 15.4 cm: 20 weeks, 4 days FL: 3.2 cm: 19 weeks, 6 days CI: 74% FL/BPD: 72% FL/HC: FL/AC: 21% HC/AC: 1.1 age by current US: 19 weeks, 5 days. SOPHIA by current US: October 12, 2022. Estimated weight: 336 grams, +/- 50 grams, 55 %. Age by LMP: 20 weeks, 0 days. SOPHIA by LMP: October 10, 2022. ANATOMY: Gender: Female Cranium: Normal lateral ventricles. Normal choroid plexus. Normal cerebellum. Normal cisterna magna. Normal face, nose and lips. Chest: Normal 4-chamber heart. Abdomen/Pelvis: Normal diaphragm. Normal stomach. Normal abdominal wall. Normal cord insertion. Normal 3 vessel cord. Normal kidneys. Normal bladder. Spine: Limited views of the spine due to position. Follow-up recommended. Extremities: Normal bilateral upper extremities. Normal bilateral lower extremities. IMPRESSION: Single live uterine gestation with mean gestational age of 19 weeks and 5 days. Limited visualization of the spine due to positioning. Follow-up is recommended. Electronically Signed: Buzz Wilder MD at 12:25 EDT , STUDY: FIRST TRIMESTER OBSTETRICAL ULTRASOUND REASON FOR EXAM: Female, 26 years old. Cervical length. LMP: January 03, 2022. TECHNIQUE: Transvaginal TECHNICAL QUALITY: Adequate. PRIOR ULTRASOUND: None. FINDINGS: Cervical length measures 4.8 cm. US/OB Anatomy Scan IMPRESSION: Cervical length measures 4.8 cm. Electronically Signed: Buzz Wilder MD at 12:25 EDT ,
== END | disposition home or self-care (01) ==
PROVIDERS: Visit Provider Obstetrics & Gynecology
DX: O09.90 Supervision of high risk pregnancy, unspecified, unspecified trimester (principal)
CPT/HCPCS: 76805; 76817

== ENCOUNTER → 2022-07-11 | Outpatient (CLI) | payer OTHER, SELFPAY ==
[2022-07-11 16:59] LABS: Absolute Lymphocyte Count 1.86 X10^3/uL (0.83-4.51); Absolute Neutrophil Count 8.8 X10^3/uL (2.0-7.7); Basophil# 0.06 X10^3/uL; Basophil% 0.5 % (0-1); Eosinophil# 0.12 X10^3/uL; Hematocrit 37.1 % (37-47); Hemoglobin 12.1 g/dL (12.0-15.0); Lymphocyte # 1.86 X10^3/ul (0.83-4.51); Lymphocyte % 15.7 % (19-41); Mean Corp Hgb Conc 32.6 g/dL (32-36); Mean Corpuscular Hgb 29.9 pg (27.0-32.0); Mean Corpuscular Volume 91.6 fL (81-99); Mean Platelet Vol. 9.5 fl (6.2-12.0); Monocyte# 0.76 X10^3/uL; Monocyte% 6.4 % (0-10); NRBC Flagged by Analyzer 0 % (0-5); Neutrophil # 8.81 X10^3/uL (2.7-7.7); Neutrophil % 74.5 % (47-70); Platelet Count 128 K/mm3 (150-450); RBC Distribution Width CV 12.9 % (11.6-14.6); RBC Distribution Width SD 42.4 fl (35.1-43.9); Red Blood Count 4.05 M/mm3 (4.2-5.4); White Blood Count 11.8 K/mm3 (4.4-11.0)
[2022-07-11 17:43] LABS: Glucose Challenge Gest 1H 50g 123 mg/dL (70-140)
[2022-07-11 18:11] LABS: HIV - WCH Non-Reactive (Nonreactive); Syphilis Antibodies Non-reactive
== END | disposition home or self-care (01) ==
LOC: LAB 16:14
PROVIDERS: Referring Provider Obstetrics & Gynecology; Visit Provider Obstetrics & Gynecology
DX: O09.90 Supervision of high risk pregnancy, unspecified, unspecified trimester (principal)
CPT/HCPCS: 36415; 82950; 85025; 86703; 86780

== ENCOUNTER → 2022-07-16 | Outpatient (CLI) | payer OTHER, SELFPAY ==
[2022-07-16 08:51] LABS: Absolute Lymphocyte Count 1.42 X10^3/uL (0.83-4.51); Absolute Neutrophil Count 10.6 X10^3/uL (2.0-7.7); Basophil# 0.06 X10^3/uL; Basophil% 0.5 % (0-1); Eosinophil# 0.12 X10^3/uL; Eosinophils% 0.9 % (0-5); Hematocrit 38.4 % (37-47); Hemoglobin 12.8 g/dL (12.0-15.0); Lymphocyte # 1.42 X10^3/ul (0.83-4.51); Lymphocyte % 10.8 % (19-41); Mean Corp Hgb Conc 33.3 g/dL (32-36); Mean Corpuscular Hgb 30.5 pg (27.0-32.0); Mean Corpuscular Volume 91.4 fL (81-99); Mean Platelet Vol. 9.4 fl (6.2-12.0); Monocyte# 0.72 X10^3/uL; Monocyte% 5.5 % (0-10); NRBC Flagged by Analyzer 0 % (0-5); Neutrophil # 10.61 X10^3/uL (2.7-7.7); Neutrophil % 80.6 % (47-70); Platelet Count 128 K/mm3 (150-450); RBC Distribution Width SD 42.6 fl (35.1-43.9); White Blood Count 13.2 K/mm3 (4.4-11.0)
== END | disposition home or self-care (01) ==
LOC: PAVLAB 08:37
PROVIDERS: Referring Provider Obstetrics & Gynecology; Visit Provider Obstetrics & Gynecology
DX: O99.112 Other diseases of the blood and blood-forming organs and certain disorders involving the immune mechanism complicating pregnancy, second trimester (principal); D69.6 Thrombocytopenia, unspecified; Z3A.25 25 weeks gestation of pregnancy
CPT/HCPCS: 36415; 85025

== ENCOUNTER → 2022-08-15 | Outpatient (CLI) | payer OTHER, SELFPAY ==
[2022-08-15 09:22] LABS: Absolute Lymphocyte Count 1.22 X10^3/uL (0.83-4.51); Absolute Neutrophil Count 9.7 X10^3/uL (2.0-7.7); Basophil# 0.07 X10^3/uL; Basophil% 0.6 % (0-1); Eosinophils% 0.8 % (0-5); Hematocrit 40.1 % (37-47); Lymphocyte # 1.22 X10^3/ul (0.83-4.51); Lymphocyte % 10.1 % (19-41); Mean Corp Hgb Conc 32.4 g/dL (32-36); Mean Corpuscular Hgb 30.1 pg (27.0-32.0); Mean Corpuscular Volume 92.8 fL (81-99); Mean Platelet Vol. 9.5 fl (6.2-12.0); Monocyte# 0.77 X10^3/uL; Monocyte% 6.4 % (0-10); NRBC Flagged by Analyzer 0 % (0-5); Neutrophil % 80.3 % (47-70); Platelet Count 133 K/mm3 (150-450); RBC Distribution Width CV 12.8 % (11.6-14.6); RBC Distribution Width SD 43.2 fl (35.1-43.9); Red Blood Count 4.32 M/mm3 (4.2-5.4); White Blood Count 12.1 K/mm3 (4.4-11.0)
== END | disposition home or self-care (01) ==
LOC: PAVLAB 08:49
PROVIDERS: Referring Provider Obstetrics & Gynecology; Visit Provider Obstetrics & Gynecology
DX: O99.112 Other diseases of the blood and blood-forming organs and certain disorders involving the immune mechanism complicating pregnancy, second trimester (principal); D69.6 Thrombocytopenia, unspecified; Z3A.25 25 weeks gestation of pregnancy
CPT/HCPCS: 36415; 85025

== ENCOUNTER → 2022-09-10 | Outpatient (CLI) | payer OTHER, SELFPAY ==
[2022-09-10 15:56] LABS: Absolute Lymphocyte Count 1.33 X10^3/uL (0.83-4.51); Absolute Neutrophil Count 8.1 X10^3/uL (2.0-7.7); Basophil# 0.06 X10^3/uL; Basophil% 0.6 % (0-1); Eosinophil# 0.08 X10^3/uL; Eosinophils% 0.8 % (0-5); Hematocrit 38.4 % (37-47); Hemoglobin 12.8 g/dL (12.0-15.0); Lymphocyte # 1.33 X10^3/ul (0.83-4.51); Lymphocyte % 12.7 % (19-41); Mean Corp Hgb Conc 33.3 g/dL (32-36); Mean Corpuscular Hgb 30.8 pg (27.0-32.0); Mean Corpuscular Volume 92.3 fL (81-99); Mean Platelet Vol. 9.6 fl (6.2-12.0); Monocyte# 0.75 X10^3/uL; Monocyte% 7.1 % (0-10); NRBC Flagged by Analyzer 0 % (0-5); Neutrophil # 8.06 X10^3/uL (2.7-7.7); Neutrophil % 76.7 % (47-70); Platelet Count 112 K/mm3 (150-450); RBC Distribution Width CV 12.8 % (11.6-14.6); RBC Distribution Width SD 42.9 fl (35.1-43.9); Red Blood Count 4.16 M/mm3 (4.2-5.4); White Blood Count 10.5 K/mm3 (4.4-11.0)
== END | disposition home or self-care (01) ==
LOC: PAVLAB 15:33
PROVIDERS: Referring Provider Obstetrics & Gynecology; Visit Provider Obstetrics & Gynecology
DX: O99.112 Other diseases of the blood and blood-forming organs and certain disorders involving the immune mechanism complicating pregnancy, second trimester (principal); D69.6 Thrombocytopenia, unspecified; Z3A.25 25 weeks gestation of pregnancy
CPT/HCPCS: 36415; 85025

== ENCOUNTER → 2022-09-17 | Outpatient (CLI) | payer OTHER, SELFPAY | END | disposition home or self-care (01) | PROVIDERS: Referring Provider Obstetrics & Gynecology; Visit Provider Obstetrics & Gynecology | DX: O09.90 Supervision of high risk pregnancy, unspecified, unspecified trimester (principal); Z3A.00 Weeks of gestation of pregnancy not specified | CPT/HCPCS: 87081 ==

== ENCOUNTER 2022-10-03 05:40 | Inpatient (IN) | payer OTHER, SELFPAY ==
[2022-10-03] VITALS (23 sets, daily range): BP systolic 92–122; BP diastolic 38–68; PULSE 73–110; RESP 10–20; TEMP 36.3–36.9; O2SAT 93–97; BMI 37.8
[2022-10-03] MEDS: Lactated Ringers 1,000 ML 999 ML IV (06:00)
[2022-10-03 06:11] LABS: Absolute Lymphocyte Count 1.12 X10^3/uL (0.83-4.51); Absolute Neutrophil Count 7.6 X10^3/uL (2.0-7.7); Basophil# 0.05 X10^3/uL; Basophil% 0.5 % (0-1); Eosinophil# 0.09 X10^3/uL; Hematocrit 39.1 % (37-47); Lymphocyte # 1.12 X10^3/ul (0.83-4.51); Lymphocyte % 11.8 % (19-41); Mean Corp Hgb Conc 33.2 g/dL (32-36); Mean Corpuscular Hgb 30.4 pg (27.0-32.0); Mean Corpuscular Volume 91.6 fL (81-99); Mean Platelet Vol. 9.6 fl (6.2-12.0); Monocyte# 0.52 X10^3/uL; Monocyte% 5.5 % (0-10); NRBC Flagged by Analyzer 0 % (0-5); Neutrophil # 7.57 X10^3/uL (2.7-7.7); Platelet Count 118 K/mm3 (150-450); RBC Distribution Width CV 12.9 % (11.6-14.6); RBC Distribution Width SD 42.2 fl (35.1-43.9); Red Blood Count 4.27 M/mm3 (4.2-5.4); White Blood Count 9.5 K/mm3 (4.4-11.0)
[2022-10-03] MEDS: Lactated Ringers 1,000 ML 150 ML IV (07:01)
[2022-10-03] MEDS: Sodium Citrate/Citric Acid 30 ML UDC PO (07:09)
[2022-10-03] MEDS: Acetaminophen 500 MG Tablet 1000 MG PO ×3 (07:10→20:08)
--- NOTE | 2022-10-03 07:21 | HP.PCM.OB_ITS ---
HPI - General General Date of Admission: 10/03/22 HPI Narrative LASHA CARR, is a 27 y/o @ 39 weeks 0d who presents to L&D for repeat section. Maternal Data Information SOPHIA Calculator Estimated Delivery Date Method Current WG Current Estimate 10/10/22 Ultrasound #1 39w 0d Other Estimates 10/17/22 LMP (Certain) 38w 0d PFSH PFSH Medical History Anxiety delivery delivered Hx of abnormal cervical Pap smear depression Home Medications famotidine 20 mg tablet (Pepcid) 20 mg PO DAILY reflux #30 tabs 02/13/22 [Rx Last Taken 10/02/22] multivitamin no.47-iron fum 27 mg-folate no.1 1 mg-dha 300 mg capsule (PNV-DHA) 1 cap PO DAILY 02/19/22 [History Last Taken 10/02/22] Allergy/AdvReac Type Severity Reaction Status Date / Time No Known Allergies Allergy Verified 10/03/22 05:43 Surgical History H/O knee surgery Social History adopted: No household members: spouse and children housing: house number of children: 1 current occupational status: employed current occupation: [employer] pets and animals: Yes pets and animals: dog(s) history of recent travel: No sexually active: Yes Smoking Status: Never smoker alcohol intake: former details: pre substance use type: does not use well-balanced diet: daily or most days caffeine: Yes Type: coffee Number of servings: 2 eating out: 1-3 times/week during the past year weight has: decreased > 10 lbs what type of physical activity do you participate in: none val/oriental orthodox: None seatbelt use: always do you feel safe at home: Yes additional social history: - 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 Date Name GA/Weeks Outcome Route Bth Weight Gen Labor Lgth Anesthesia Del Locatn Provider FOB 01/08/20 Miles 39 live - full term Male sp shanika [facility] Demi Delivery Date: 01/08/20 Last Updated by: Damari Bliss PCD for breech Visit Details Expected Delivery Route/Plan RLTCS vs possible TOLAC if spontaneous labor 66% chance of success. Plans Covid status: discussed Flu vaccine:discussed Tdap vaccine: declines Rhogam: NA LARC form signed: completed Problem list reviewed and updated with the most current plan of care details and appropriate orders placed. Relevant counseling for the gestational age provided. Continue routine care and follow up unless otherwise noted in visit notes/problem list details OB Flowsheet Initial Weight: Not Recorded Date -?-?-?-?-?-?-?-?-?-?-?-?- EGA Weight BP Urine Prot -?-?-?-?-?-?-?-?-?-?-?-?- Glucose FHR FuHt Pres Dilation -?-?-?-?-?-?-?-?-?-?-?-?- Effaced St Visit Note 03/09/22 -?-?-?-?-?-?-?-?-?-?-?-?- 9w 2d 210 lb 123/81 -?-?-?-?-?-?-?-?-?-?-?-?- 185 -?-?-?-?-?-?-?-?-?-?-?-?- Sm- CRL 2.26cm N OT cons with LMP 04/06/22 -?-?-?-?-?-?-?-?-?-?-?-?- 13w 2d 215 lb 4 oz 120/79 Nega tive -?-?-?-?-?-?-?-?-?-?-?-?- Negative 157 -?-?-?-?-?-?-?-?-?-?-?-?- JV- no complaint s today. did early gct. bedside scan for heart tones today. she is almost 100% sure wants rpt section. 05/02/22 -?-?-?-?-?-?-?-?-?-?-?-?- 17w 0d 213 lb 4 oz 117/75 Nega tive -?-?-?-?-?-?-?-?-?-?-?-?- Negative 166 -?-?-?-?-?-?-?-?-?-?-?-?- JV- no lof ,vagi nal bleeding, or cramping. now sure wants rpt section. GTP, rpt plts today. 05/28/22 -?-?-?-?-?-?-?-?-?-?-?-?- 20w 5d 221 lb 2 oz 112/76 Nega tive -?-?-?-?-?-?-?-?-?-?-?-?- Negative 150 -?-?-?-?-?-?-?-?-?-?-?-?- SM- no vb lof go od fm no regular ctx reviewed labs 06/29/22 -?-?-?-?-?-?-?-?-?-?-?-?- 25w 2d 225 lb 2 oz 120/75 Nega tive -?-?-?-?-?-?-?-?-?-?-?-?- Negative 163 25 -?-?-?-?-?-?-?-?-?-?-?-?- JV- no lof, vagi nal bleeding, or dec fm. last plt level was 150. gct ordered. will rpt one more time and if normal no further rpts likely needed. 07/16/22 -?-?-?-?-?-?-?-?-?-?-?-?- 27w 5d 231 lb 4 oz 116/76 Nega tive -?-?-?-?-?-?-?-?-?-?-?-?- Negative 145 28 -?-?-?-?-?-?-?-?-?-?-?-?- Sm- no vb lof go od fm no regular ctx scheduled cs 08/01/22 -?-?-?-?-?-?-?-?-?-?-?-?- 30w 0d 232 lb 6 oz 122/74 Nega tive -?-?-?-?-?-?-?-?-?-?-?-?- Negative 147 30 -?-?-?-?-?-?-?-?-?-?-?-?- MH-No VB, LOF. G ood FM. Twisted ankle but did not fall on abdomen. Reassured. 08/15/22 -?-?-?-?-?-?-?-?-?-?-?-?- 32w 0d 233 lb 117/64 Negative -?-?-?-?-?-?-?-?-?-?-?-?- Negative 138 32 -?-?-?-?-?-?-?-?-?-?-?-?- LC- no vb/lof/ct x. good fm. no concerns. 08/27/22 -?-?-?-?-?-?-?-?-?-?-?-?- 33w 5d 237 lb 112/76 Negative -?-?-?-?-?-?-?-?-?-?-?-?- Negative 140 35 -?-?-?-?-?-?-?-?-?-?-?-?- Sm- no vb lof go od fm no regular ctx 09/17/22 -?-?-?-?-?-?-?-?-?-?-?-?- 36w 5d 239 lb 6 oz 113/76 Nega tive -?-?-?-?-?-?-?-?-?-?-?-?- Negative 140 37 Cephalic -?-?-?-?-?-?-?-?-?-?-?-?- SM- no vb lof go od fm no reuglar ctx, discussed platelets 09/25/22 -?-?-?-?-?-?-?-?-?-?-?-?- 37w 6d 239 lb 8 oz 118/79 Nega tive -?-?-?-?-?-?-?-?-?-?-?-?- Negative 130 40 Cephalic -?-?-?-?-?-?-?-?-?-?-?-?- KW-+fm. no lof/v b/ctx. RCS scheduled. no concerns today 10/02/22 -?-?-?-?-?-?-?-?-?-?-?-?- 38w 6d 239 lb 4 oz 121/74 Nega tive -?-?-?-?-?-?-?-?-?-?-?-?- Negative 147 39 -?-?-?-?-?-?-?-?-?-?-?-?- JV- no lof, vagi nal bleeding, or dec fm. consent for surgery signed today. rpt section tomorrow. ROS Constitutional Constitutional: Denies change in weight, fatigue, fever(s), headache(s), poor appetite or weakness Eyes Eyes: Denies blurry vision, change in vision, seeing flashes or spots in vision ENT HEENT: Denies dizziness, headache(s), loss taste/smell or sore throat Cardiovascular Cardiovascular: Denies chest pain, dizziness, dyspnea, irregular heart rhythm, leg edema, palpitations, rapid heart rate or vomiting Respiratory/Chest Respiratory/Chest: Denies chest tightness, cough, dyspnea or breast pain Gastrointestinal Gastrointestinal: Denies abdominal pain, anorexia, constipation, cramping, diarrhea, hemorrhoids, vomiting or weight changes Genitourinary Genitourinary: Denies dysuria, flank pain, genital lesions, genital pain, urinary frequency or urinary urgency Musculoskeletal Musculoskeletal: Denies back pain, difficulty walking, joint pain, limited range of motion, muscle cramps or numbness Integumentary Integumentary: Denies lesions or unusual bruising Neurologic Neurologic: Denies abnormal movements, abnormal speech, dizziness, numbness, seizure-like activity or syncope Psychiatric Psychiatric: Denies anxiety, behavioral changes, change in appetite, change in libido, cognitive impairment, confusion, depression, difficulty concentrating, hallucinations or suicidal thoughts Endocrine Endocrinology: Denies excessive sweating, polydipsia or polyuria Hematologic/Lymphatic Hematologic/Lymphatic: Denies easy bleeding, easy bruising or lymphadenopathy Allergic/Immunologic Allergic/Immunologic: Denies itchy eyes, lip swelling, seasonal rhinorrhea, rhinitis, throat swelling, tongue swelling, eczemia, wheezing or asthma Vital Signs Vital Signs Vital Signs: 10/03/22 05:49 10/03/22 05:49 10/03/22 05:49 Temperature Temperature Source Pulse Rate 110 H Respiratory Rate Blood Pressure 122/60 H Blood Pressure Mean BP Systolic 122 BP Diastolic 60 Blood Pressure Source Blood Pressure Position Blood Pressure Location Pulse Ox 96 Oxygen Delivery Method 10/03/22 05:49 10/03/22 07:20 Temperature 97.3 F L Temperature Source Temporal Pulse Rate 110 H 110 H Respiratory Rate 16 Blood Pressure 122/60 H Blood Pressure Mean 80 BP Systolic BP Diastolic Blood Pressure Source Monitor Blood Pressure Position Semi-Fowlers Blood Pressure Location Right Arm Pulse Ox 96 Oxygen Delivery Method Room Air Weight Weight: 241 lb 12.8 oz Body Mass Index (BMI) 37.8 Physical Exam Const alert, oriented x3, no apparent distress and healthy appearing General Appearance: cooperative; Negative for anxious HEENT normocephalic Face and Sinus: normal facial exam Eyes EOMs intact bilaterally and no scleral icterus General Eye: normal appearance of both eyes Neck full ROM and supple Lymph Lymphatic: no lymphadenopathy noted Chest Chest: abnormal inspection of the chest Resp normal respiratory effort Effort and Inspection: able to speak in complete sentences Cardio regular rate GI soft to palpation and non-tender Inspection: gravid Palpation: soft; Negative for tender Back/Spine no CVA tenderness Extremity normal to inspection, full ROM and no clubbing, cyanosis or edema General Extremity: Negative for calf tenderness or edema Skin Lesions: no lesions Rashes: no rashes Psych mental status grossly normal Labs Labs Labs: Blood Type A POSITIVE Antibody Screen NEGATIVE Hct 39.1 % (37-47) Hgb 13.0 g/dL (12.0-15.0) Obstetrics US Syphilis Total Ab Non-reactive Rubella IgG Antibody Equiv (Nonreactive) Hep Bs Antigen Non-Reactive (Nonreactive) Chlamydia DNA (MARCOS) Negative (Negative) Neisseria gonorrhoeae DNA (MARCOS) Negative (Negative) HIV 1&2 Antibody Non-Reactive (Nonreactive) Glucose 1 Hr 50 gm 123 mg/dL (70-140) Rhogam given: No Miscellaneous Test Assessment & Plan (1) Thrombocytopenia: COMMENT: rpt cbc q month (2) Obesity affecting : COMMENT: 1 TM GCT encouraged healthy weight gain (3) History of section: COMMENT: 2020 consider tolac but likely RLTCS. RLTCS scheduled for 10/03 @ 7:10 with JV (4) Supervision of high risk , antepartum: COMMENT: PRR , SOPHIA 10/10/22 girl Nohemy Casiano, Kana (5) : QUALIFIERS: Weeks of gestation: 38 weeks Qualified Code(s): Z3A.38 - 38 weeks gestation of COMMENT: GBS neg, declined genetic & CARRIER testing. anatomy nl PLAN: Plan plan for a repeat section - ERAS protocol ordered
--- NOTE | 2022-10-03 07:25 | DCINST_ITS ---
Discharge Instructions Diet Discharge Diet: No restrictions Activity Discharge Activity: May Not Drive (for 2 weeks or while taking narcotic pain medications.), May Shower and May Take a Tub Bath (in 7 days.) May resume sexual activity in: 4-6 weeks Weight Bearing Status: Full weight bearing Lifting Restrictions: 20 pounds Dressing / Incision Call your doctor if your incision/area has: Continuous Slow Oozing, Sudden Increased Bleeding, Increased Pain/ Swelling, Increased Redness and Foul Smelling Discharge Call your doctor if you observe: Fever of 101 or Higher and Using more than 1 pad per hour Suture Line Care: Avoid Pulling/Pushing and Avoid Pinching/Bending Cleanse incision/area with: Soap & Water and Keep Dressing Clean & Dry Follow Up Care Please Follow Up With: Gabby Hamilton DO When: Call [phone] to make an appointment for an incision check in 1-2 weeks. Test Results: Test results from this visit will be discussed in further detail at your follow- up appointment, if applicable. Discharge Plan Admission Admit Date/Time: 10/03/22 05:40 Attending Provider: Gabby Hamilton Primary Care Provider: Care Physician,No Primary Discharge Orders/Prescriptions Prescriptions: No Action PNV-DHA 27 mg iron-1 mg -300 mg capsule 1 cap PO DAILY famotidine [Pepcid] 20 mg tablet 20 mg PO DAILY Qty: 30 6RF Referrals / Follow Up: Care Physician,No Primary [Primary Care Provider] -
[2022-10-03] MEDS: Cefazolin 2 GM in 0.9% Normal Saline 100 ML IV (07:36)
[2022-10-03 07:46] LABS: Syphilis Antibodies Non-reactive
--- NOTE | 2022-10-03 09:01 | EX.PCM.OBRPT ---
Assessment & Plan (1) Thrombocytopenia: COMMENT: rpt cbc q month (2) Obesity affecting : COMMENT: 1 TM GCT encouraged healthy weight gain (3) History of section: COMMENT: 2020 consider tolac but likely RLTCS. RLTCS scheduled for 10/03 @ 7:10 with JV (4) Supervision of high risk , antepartum: COMMENT: PRR , SOPHIA 10/10/22 girl Nohemy Casiano, Kana (5) : QUALIFIERS: Weeks of gestation: 38 weeks Qualified Code(s): Z3A.38 - 38 weeks gestation of COMMENT: GBS neg, declined genetic & CARRIER testing. anatomy nl Maternal Data Information SOPHIA Calculator Estimated Delivery Date Method Current WG Current Estimate 10/10/22 Ultrasound #1 39w 0d Other Estimates 10/17/22 LMP (Certain) 38w 0d Final SOPHIA: 10/10/22 Final SOPHIA Source: [place] <20 weeks Gestational age: 39 weeks 0 days Details Operative Information Date of Procedure: 10/03/22 Pre-Operative Diagnosis: @ 39 weeks, prior section, desires repeat Post-Operative Diagnosis: @ 39 weeks, prior section, desires repeat Indications for : Repeat Elective Classification: Scheduled Procedure Type: low transverse clinical trials specialist #1: Kari Farr clinical trials specialist #2: ifeanyi mcgill Type of Anesthesia: Spinal Anesthesiologist: Won Sow Antibiotic Given: Ancef 2 grams IV x1 Estimated Blood Loss: 500 Findings Description of Procedure: The patient is a 27 y/o @ 39 weeks who presented for repeat . Spinal anesthesia was placed without difficulty. Gray catheter was placed. The patient was placed in the dorsal supine position with leftward tilt. Patient was prepped and draped in the normal sterile fashion. Pfannenstiel skin incision was made with the scalpel and carried through to the underlying layer of fascia with the scalpel. Fascia was nicked in the midline and the incision extended laterally. The rectus bellies were dissected off superiorly and inferiorly with out complication both sharply and bluntly. The peritoneum was entered digitally. The incision was stretched and a low transverse uterine incision was made with the scalpel and was found to be extremely weak and thin. The infant's head was delivered atraumatically followed by the anterior and posterior shoulders without complication the rest of the infant delivered. The cord was clamped and cut and the was handed off to awaiting nurse. The placenta was delivered spontaneously immediately following and was noted to be intact and have a three-vessel cord. The uterus was exteriorized cleared of all clots and debris, and the incision was closed in a double layer closure using #1 Vicdryl and #1 Monocryl. The ovaries and fallopian tubes were noted to be within normal limits. The uterus was returned to the maternal abdomen and gutters were cleared of all clots and debris. The peritoneum was closed with 3-0 Monocryl in a running fashion. Gloves were changed prior to fascial closure. Fascia was closed with 0 PDS in a running fashion. Subcutaneous tissue was copiously irrigated and the skin was closed with 3-0 Monocryl in a subcuticular fashion. Mepilex dressing was applied without complication. Patient was taken to recovery in stable condition. It was discussed with the patient that based on the clinical information obtained during this encounter, combined with her history, at this time I would recommend repeat section due to weakness at the lower uterine segment, for future deliveries if further pregnancies are desired. Presentation: Positive for Vertex Amniotic Membrane Rupture Type: Artificial Placental Delivery Description: Expressed Placenta Disposition: [facility] Cord Vessel Description: 3 Vessels Cord Entanglement: Around neck x 1, loose Nuchal Cord Compression: Without compression Infant A Gender: Female (1 minute): 9 (5 minute): 9 Delayed Cord Clamping: Yes Complications Risks of Surgery Discussed w/Patient: Bleeding, Anesthesia Risks, Infection and Injury to surrounding structure(s) including bowel and bladder Complications: none Multi Select Codes Urinary/Genital Urinary/Genital CPT Codes: 48388 Delivery [facility]
[2022-10-03] MEDS: Oxytocin 15 Units/NS 250ml 15 UNITS/250 ML IV.SOLN 83 UNITS IV (09:15)
[2022-10-03] MEDS: Ketorolac 30 MG/ML Syringe IV ×3 (10:55→22:16)
[2022-10-03] MEDS: Senna/Docusate Sodium 1 Tablet PO (10:56)
[2022-10-03] MEDS: Prenatal Vits Tablet 1 TABLET PO (12:12)
[2022-10-03] MEDS: Lactated Ringers 1,000 ML 100 ML IV (12:35)
[2022-10-03] MEDS: Enoxaparin 40 MG/0.4 ML Syringe SC (20:08)
--- NOTE | 2022-10-03 21:50 | NURSING ---
Mother requested urinary catheter be kept in past the 12 hour cortney. NT removed alanis at 13 hours and 45 min.
[2022-10-03] MEDS: 0.9% Saline Lock 10 ML Syringe IV (22:16)
[2022-10-04 04:50] VITALS: BP 100/51; PULSE 71; RESP 16; TEMP 36.5; O2SAT 98
[2022-10-04] MEDS: Acetaminophen 500 MG Tablet 1000 MG PO ×3 (05:14→18:20)
[2022-10-04] MEDS: 0.9% Saline Lock 10 ML Syringe IV (05:14)
[2022-10-04] MEDS: Ketorolac 30 MG/ML Syringe IV (05:14)
--- NOTE | 2022-10-04 05:41 | NURSING ---
Pt informed of equivocal Rubella status and educated on vaccine by this RN. Pt verbalized understanding and declines Rubella vaccine.
[2022-10-04 06:17] LABS: Hematocrit 34.3 % (37-47); Hemoglobin 11.3 g/dL (12.0-15.0); Mean Corp Hgb Conc 32.9 g/dL (32-36); Mean Corpuscular Hgb 30.3 pg (27.0-32.0); Mean Platelet Vol. 9.7 fl (6.2-12.0); Platelet Count 105 K/mm3 (150-450); RBC Distribution Width CV 12.8 % (11.6-14.6); RBC Distribution Width SD 42.5 fl (35.1-43.9); Red Blood Count 3.73 M/mm3 (4.2-5.4)
[2022-10-04 08:00] VITALS: BP 111/63; PULSE 77; RESP 16; TEMP 36.2; O2SAT 98
--- NOTE | 2022-10-04 08:32 | PCM.PN.OB ---
Subjective Subjective Patient doing well without complaints. Tolerating PO. Ambulating and voiding without difficulty. feeding well. Denies chest pain, shortness of breath, calf pain/swelling, fevers, chills, lightheadedness. Objective Data Objective Data Vital Signs: Vital Signs Temp Pulse Resp BP Pulse Ox O2 Del Method 97.7 F L 71 16 100/51 L 98 Room Air 10/04/22 04:50 10/04/22 04:50 10/04/22 04:50 10/04/22 04:50 10/04/22 04:50 10/04/22 04:50 Oxygen Delivery Method Room Air Weight: 241 lb 12.8 oz Body Mass Index (BMI) 37.8 Intake & Output: Intake and Output for Last 24 Hours 10/02/22 10/03/22 10/04/22 23:59 23:59 23:59 Intake Total 4010.0 / 4010.0 Output Total 2498 / 2498 500 / 500 Balance 1512.0 / 1512.0 -500 / -500 Lab / Micro Data 10/04/22 06:08 Labs: Laboratory Results - last 24 hr 10/04/22 06:08: WBC 11.0, RBC 3.73 L, Hgb 11.3 L, Hct 34.3 L, MCV 92.0, MCH 30.3, MCHC 32.9, RDW Std Deviation 42.5, RDW Coeff of Rohan 12.8, Plt Count 105 L, MPV 9.7 ROS Constitutional Constitutional: Reports systems reviewed and no addt'l complaints, except as documented Cardiovascular Cardiovascular: Reports systems reviewed and no addt'l complaints, except as documented Respiratory/Chest Respiratory/Chest: Reports systems reviewed and no addt'l complaints, except as documented Gastrointestinal Gastrointestinal: Reports systems reviewed and no addt'l complaints, except as documented Physical Exam Const alert, oriented x3 and no apparent distress HEENT Head and Scalp: atraumatic Resp normal respiratory effort GI soft to palpation and non-tender Inspection: incision intact, healing well and drainage (none) Bimanual Exam - Vag & Uterus: uterus non-tender Uterus Palpation: uterus fundus firm (below Umbilicus) Assessment & Plan (1) delivery delivered: PLAN: Plan s/p LTCS PPD # 1 1. routine post care 2. breast feeding- support given 3. rh positive 4. rubella immune
--- NOTE | 2022-10-04 10:51 | CASEMGMT ---
Social Work Assessment Labor and Delivery Unit Patient Address:[address] [place] [address] Phone number: [phone] Date of Referral: 10/03/22 Time of Referral:? 829 Referred By: Nursing staff informed sw of need for referral an sw involvement. Date of Intervention: ??10/04/22 Time of Intervention:? 1000 Reason for Referral:? Maternal history of anxiety and depression Sw completed chart review. Sw presented to bedside, introduced self to mother of baby (JAVIER- Heather) and father of baby (FOKatharina- Kana). Sw explained sw role during admission. Sw completed psychosocial assessment with both parents who contributed. Sw asked MINI to step out while MOB completed [place] Screen, FOB did so willingly. History obtained from: medical records, MOB and FOKatharina. Household composition: Currently residing in the home is JAVIER, MINI, baby girl, and older brother (Oh, : 01/08/2020). No one else lives with family at this time. Patient's parent/guardian status:? JAVIER is 27 year old, , female. JAVIER and MINI have been together for 10 years, they met in high school and have been together ever since. When meeting with JAVIER privately, she denied any concerns of domestic violence or intimate partner violence. Medical History: JAVIER is 2, para 1- now 2. JAVIER received routine care during with [place]. JAVIER delivered baby girl at 39 weeks via repeat . Baby girl, named Nohemy Hart, was born weighing 7lb 5oz and her apgars were 9 and 9 at one and five minutes of life respectfully. JAVIER states that she is doing a combination of breast feeding and formula feeding. JAVIER states she has a pump for home. Educational Status:?Both parents graduated from high school, neither of them have college education. Financial Status: Both parents are gainfully employed outside of the home. MINI works as a commercial loan processor, he states he was able to take two weeks off of work. 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 JAVIER states that she was able to take 12 weeks off of work. Supplies:??Parents report they have obtained all necessary baby items, including: car seat, crib, clothes, diapers and wipes. Childcare/Caregiver(s):? When both parents are at work they have childcare arranged for baby and big brother. Paternal grandma watches the kids several days out of the week and a director of rooms watches them the other days. Transportation:??Both parents have drivers license and reliable transportation. No transportation concerns at this time. Programs/Agencies Involved: No programs or agency involvement at this time. Parents are over income for services offered through [facility]. ??? Children Services/Legal Issues:??Parents deny history, no concerns or issues warranting referral to be made at this time. ? Behavioral Health Issues: ??Mental Health History:?MINI denies mental health history. JAVIER states that she has been diagnosed with anxiety and experienced depression following the of her son. JAVIER states that she was depressed following his , and she did not have motivation to do anything. JAVIER stated that he was also born during winter months and the dark and night time affected her. JAVIER states that at that time she was put on zoloft and that helped her a lot. JAVIER stated that she is hopeful that this period will be different for her. JAVIER stated that if she were to experience symptoms of depression again she is not against starting medications again. JAVIER completed [place] Depression Scale, her score was a 6. Adelaida provided support and education. Sw provided JAVIER with list of counseling supports local to her. JAVIER said she is also rececptive to counseling if she were at a point where that would help her. Adelaida also discussed with MINI signs and symptoms to look for. MINI said he thinks he does a good job of recognizing when JAVIER is struggling. JAVIER stated that MINI is a big support person for her. ?? Substance Use History: JAVIER denies substance use prior to or during . ?? Family History:?JAVIER denies family history of substance use or mental health. ? Drug Screens: Most recent drug screen was done in April of 2022 and it was negative for all substances. Drug screen not observed in chart review at time of delivery. Family/Social Stressors:? JAVIER states that her biggest stressors at this time is going home with baby and worrying about struggling with depression. JAVIER states that she is open to using formula this time and not stressing about breast feeding, although it is going well for her so far. JAVIER denies any other stressors or concerns at this time. Support Systems: MOB states that both grandma's are supportive and helpful. Depression/Shaken Baby/Safe Sleeping:?Sw provided education and literature for parents to review regarding baby blues, depression/ anxiety. Parents expressed understanding. Sw educated parents on shaken baby prevention and ABCs of safe sleep. Parents expressed understanding. .?? ASSESSMENT:? Parents both at bedside. During assessment baby stayed asleep in crib. Parents were engaged during assessment, open to answering questions. MOB was extremely open regarding her mental health history and experience with depression following the of her first child. Parents were open to information and education provided. Parents were talkative and receptive to sw involvement and support. PLAN:? MOB and baby to be discharged when medically ready. ?No other services requested or indicated. Fabby Stacy, AUTOMOTIVE TECHNICIAN, MINE SAFETY ENGINEER
[2022-10-04] MEDS: Senna/Docusate Sodium 1 Tablet PO ×2 (12:07→19:55)
[2022-10-04] MEDS: Prenatal Vits Tablet 1 TABLET PO (12:07)
[2022-10-04] MEDS: Enoxaparin 40 MG/0.4 ML Syringe SC ×2 (12:07→23:33)
[2022-10-04] MEDS: Naproxen 500 MG Tablet PO ×2 (12:12→19:51)
[2022-10-04 14:00] VITALS: BP 116/58; PULSE 74; RESP 18; TEMP 36.6
[2022-10-05] MEDS: Acetaminophen 500 MG Tablet 1000 MG PO ×2 (00:57→07:58)
[2022-10-05 01:13] VITALS: BP 116/55; PULSE 80; RESP 16; TEMP 36.1; O2SAT 96
[2022-10-05] MEDS: Naproxen 500 MG Tablet PO (04:34)
[2022-10-05 08:16] VITALS: BP 126/69; RESP 16; TEMP 35.7; O2SAT 96
--- NOTE | 2022-10-05 08:31 | PCM.PN.OB ---
Subjective Subjective Patient doing well without complaints. Tolerating PO. Ambulating and voiding without difficulty. Feeding well. Denies chest pain, shortness of breath, calf pain/swelling, fevers, chills, lightheadedness. Objective Data Objective Data Vital Signs: Vital Signs Temp Pulse Resp BP Pulse Ox O2 Del Method 96.3 F L 80 16 126/69 H 96 Room Air 10/05/22 08:16 10/05/22 01:13 10/05/22 08:16 10/05/22 08:16 10/05/22 08:16 10/05/22 08:16 Oxygen Delivery Method Room Air Weight: 241 lb 12.8 oz Body Mass Index (BMI) 37.8 Intake & Output: Intake and Output for Last 24 Hours 10/03/22 10/04/22 10/05/22 23:59 23:59 23:59 Intake Total 4010.0 / 4010.0 Output Total 2498 / 2498 1100 / 1100 Balance 1512.0 / 1512.0 -1100 / -1100 Lab / Micro Data 10/04/22 06:08 Physical Exam Const alert, oriented x3 and no apparent distress HEENT Head and Scalp: atraumatic Resp normal respiratory effort GI soft to palpation and non-tender Inspection: incision intact, healing well and drainage (none) Bimanual Exam - Vag & Uterus: uterus non-tender Uterus Palpation: uterus fundus firm (below Umbilicus) Assessment & Plan (1) delivery delivered: COMMENT: [facility] rpt cs girl PLAN: s/p LTCS PPD # 1. routine post care 2. breast feeding- support given 3. rh positive 4. rubella immune 5. d/c home today
== END 2022-10-05 10:15 | disposition home or self-care (01) | DRG 787 ==
PROVIDERS: Admitting Provider Obstetrics & Gynecology; Visit Provider Obstetrics & Gynecology
PROC: 10D00Z1 Extraction of Products of Conception, Low, Open Approach (ICD-10-PCS; CPT 59514; principal; 2022-10-03 07:15)
DX: O34.219 Maternal care for unspecified type scar from previous cesarean delivery (principal); O99.12 Other diseases of the blood and blood-forming organs and certain disorders involving the immune mechanism complicating childbirth; D69.6 Thrombocytopenia, unspecified; O99.214 Obesity complicating childbirth; E66.9 Obesity, unspecified; O69.81X0 Labor and delivery complicated by cord around neck, without compression, not applicable or unspecified; Z3A.39 39 weeks gestation of pregnancy; Z37.0 Single live birth
CPT/HCPCS: 36415; 59050; 85025; 85027; 86780; 86850; 86900; 86901; 99221; 99252; J7120; A4216; G0378; G0463; J2405

== ENCOUNTER → 2022-10-17 | Outpatient (CLI) | payer OTHER, SELFPAY | END | disposition home or self-care (01) | PROVIDERS: Referring Provider Nurse Practitioner Women's Health; Visit Provider Nurse Practitioner Women's Health | DX: R30.0 Dysuria (principal) | CPT/HCPCS: 87086; 87088 ==

== ENCOUNTER → 2024-12-17 | Outpatient (CLI) | payer OTHER, SELFPAY ==
--- OUTSIDE RECORDS SUMMARY | 2024-12-17 17:07 | XMS RPT_ITS | CCD ---
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 Ilsa Figueroa Attending Provider [phone] Gabby Hamilton Attending Provider [phone]) Care Physician, No Primary Primary Care Provider Unavailable Care Physician, No Primary Referring Provider Un available Dr. Gabby Hamilton Attending Provider [phone] Dr. Ilsa Figueroa Attending Provider [phone] Care Physician, No Primary Primary Care Provider Unavailable Care Physician, No Primary Referring Provider Un available Dr. Gabby Hamilton Attending Provider 1( [phone] MARLENE Garvey NP Attending Provider [phone] CHRISTOFER Smith Attending Provider [phone] Care Physician, No Primary Primary Care Provider Unavailable Care Physician, No Primary Referring Provider Un available Dr. Gabby Hamilton Attending Provider [phone] Care Physician, No Primary Primary Care Provider Unavailable Care Physician, No Primary Referring Provider Un available Dr. Ilsa Figueroa Attending Provider [phone] CHRISTOFER Ponce Attending Provider [phone] Gabby Hamilton Admit Provider Dr. Gabby Hamilton Other Provider DAV ROSAS CNM Attending Unavailable DAV ROSAS CNM Primary Care Unavailable DAV ROSAS CNM Admitting Unavailable Mya Garcia Attending Unavailable Care Physician, No Primary Referring Unava ilable Care Physician, No Primary Primary Care Unava ilable Medications Current Medications Medication Drug Class(es) Dates Sig (Normalized) Sig (Original) acetaminophen 325 mg / oxyCODONE hydrochloride 5 mg oral tablet (2 sources) Opioid Agonist Start: 10-04-2022 take 1 tablet by mouth every six hours Oxycodone-Acetami nophen (Percocet) 5-325 mg tablet Active 1 TABLET PO EVERY 6 HOURS 20 October 04, 2022 famotidine 20 mg oral tablet (20 sources) Histamine-2 Receptor Antagonist Start: 02-13-2022 take 1 tablet by mouth once daily Famotidine (Pepcid) 20 mg tablet Active 20 MG PO DAILY February 13, 2022 1:00am Start: 11-12-2019 End: 02-17-2020 take 20 mg by mouth once daily Famotidine Discontinued 20 MG PO DAILY January 08, 2020 10:55am February 17, 2020 12:26pm Multivit 93-Tzbs-Sbdawu 1-Dha (Pnv-Dha) 27 mg iron-1 mg -300 mg capsule (10 sources) Start: 02-19-2022 take 1 capsule by mouth once daily Multivit 49-Arkb-Yppury 1-Dha (Pnv-Dha) 27 mg iron-1 mg -300 mg capsule Active 1 CAP PO DAILY February 19, 2022 1:00am Start: 02-19-2022 Multivit 47-Ir on-Folate 1-Dha (Pnv-Dha) 27 mg iron-1 mg -300 mg capsule Active CAP PO February 19, 2022 1:00am Start: 02-19-2022 Multivit 47-Ir on-Folate 1-Dha (Pnv-Dha) 27 mg iron-1 mg -300 mg capsule Active CAP PO February 19, 2022 12:00am naproxen 500 mg oral tablet (2 sources) Nonsteroidal Anti-inflammatory Drug Start: 10-04-2022 take 500 mg by mouth twice daily as needed Naproxen Active 500 MG PO TWICE DAILY NEEDED October 04, 2022 12:00am nitrofurantoin, macrocrystals 25 mg / nitrofurantoin, monohydrate 75 mg oral capsule (1 source) Nitrofuran Antibacterial Start: 10-17-2022 take 1 capsule by mouth twice daily at mealtime Nitrofurantoin Monohyd/M-Cryst (Macrobid) 100 mg capsule Active 100 MG PO TWICE A DAY 14 October 17, 2022 12:00am must administer with a meal/food Completed/Discontinued Medications Medication Drug Class(es) Dates Sig (Normalized) Sig (Original) cetirizine hydrochloride 10 mg oral capsule (10 sources) Histamine-1 Receptor Antagonist Start: 08-20-2019 End: 01-21-2020 take 1 capsule by mouth once daily Cetirizine (Zyrtec) 10 mg capsule Discontinued 10 MG PO DAILY August 20, 2019 12:00am January 21, 2020 12:15pm Desogestrel-Ethinyl Estradiol (20 sources) Progestin, Estrogen Start: 07-01-2018 End: 09-16-2018 Desogestrel-Ethiny l Estradiol (Enskyce) 0.15-0.03 mg tablet Discontinued 1 TABLET PO daily July 01, 2018 9:29am September 16, 2018 8:52am Start: 07-01-2018 End: 09-16-2018 Desogestrel-Ethinyl Estradio l (Enskyce) 0.15-0.03 mg tablet Discontinued 1 TABLET PO daily July 01, 2018 8:29am September 16, 2018 7:52am Start: 08-16-2017 End: 07-01-2018 Desogestrel-Ethinyl Estradio l (Enskyce) 0.15-0.03 mg tablet Discontinued 1 TABLET PO daily August 16, 2017 12:00am July 01, 2018 9:29am Start: 08-16-2017 End: 07-01-2018 Desogestrel-Ethinyl Estradio l (Enskyce) 0.15-0.03 mg tablet Discontinued 1 TABLET PO daily August 15, 2017 11:00pm July 01, 2018 8:29am Start: 07-23-2017 End: 08-16-2017 Desogestrel-Ethinyl Estradio l (Apri) 0.15-0.03 mg tablet Discontinued 1 TABLET PO daily July 23, 2017 12:00am August 16, 2017 11:20am Start: 07-23-2017 End: 08-16-2017 Desogestrel-Ethinyl Estradio l (Apri) 0.15-0.03 mg tablet Discontinued 1 TABLET PO daily July 22, 2017 11:00pm August 16, 2017 10:20am Drospirenone-Ethinyl Estradiol (10 sources) Progestin, Estrogen Start: 07-23-2017 End: 07-23-2017 Drospirenone-Ethinyl Estradiol (Ocella) 3-0.03 mg tablet Discontinued 1 TABLET PO daily July 23, 2017 12:00am July 23, 2017 11:42am Start: 07-23-2017 End: 07-23-2017 Drospirenone-Ethinyl Estradi ol (Ocella) 3-0.03 mg tablet Discontinued 1 TABLET PO daily July 22, 2017 11:00pm July 23, 2017 10:42am Levonorgestrel-Ethinyl Estrad (20 sources) Progestin, Estrogen, Progestin-containing Intrauterine Device Start: 03-06-2021 End: 02-12-2022 take 1 tablet by mouth once daily Levonorgestrel-Ethinyl Estrad (Aviane) 0.1-20 mg-mcg tablet Discontinued 1 TABLET PO DAILY March 06, 2021 2:02pm February 12, 2022 5:45pm Start: 03-06-2021 End: 02-12-2022 take 1 tablet by mouth once daily Levonorgestrel-Ethinyl Estrad (Aviane) 0.1-20 mg-mcg tablet Discontinued 1 TABLET PO DAILY March 06, 2021 1:02pm February 12, 2022 4:45pm Start: 03-18-2020 End: 03-06-2021 take 1 tablet by mouth once daily Levonorgestrel-Ethinyl Estrad (Aviane) 0.1-20 mg-mcg tablet Discontinued 1 TABLET PO DAILY March 18, 2020 1:00am March 06, 2021 2:02pm Start: 03-18-2020 End: 03-06-2021 take 1 tablet by mouth once daily Levonorgestrel-Ethinyl Estrad (Aviane) 0.1-20 mg-mcg tablet Discontinued 1 TABLET PO DAILY March 18, 2020 12:00am March 06, 2021 1:02pm Start: 09-16-2018 End: 06-22-2019 take 1 tablet by mouth once daily Levonorgestrel-Ethinyl Estrad (Aviane) 0.1-20 mg-mcg tablet Discontinued 1 TABLET PO daily September 16, 2018 12:00am June 22, 2019 3:22pm take only active pills, discard inactive and start new pack immediately fluconazole 150 mg oral tablet (10 sources) Azole Antifungal Start: 11-30-2020 End: 03-06-2021 Fluconazole (Diflucan) 150 mg tablet Discontinued 150 MG PO Q3D 2 November 30, 2020 12:00am March 06, 2021 1:54pm ibuprofen 600 mg oral tablet (10 sources) Nonsteroidal Anti-inflammatory Drug Start: 01-09-2020 End: 02-17-2020 take 600 mg by mouth every six hours as needed Ibuprofen Discontinued 600 MG PO EVERY 6 HOURS NEEDED January 09, 2020 1:00am February 17, 2020 12:25pm methylPREDNISolone 4 mg oral tablet (2 sources) Corticosteroid Start: 09-21-2022 End: 10-03-2022 take 1 tablet by mouth once Methylprednisolone (Medrol (Bairon)) 4 mg tablets,dose pack Discontinued 0 PO per package directions September 21, 2022 12:00am October 03, 2022 5:56am PO PER PKG DIR Multivitamin preparation (10 sources) Start: 03-06-2021 End: 02-19-2022 take 1 tablet by mouth once daily Multivitamin Discontinued 1 TABLET PO DAILY March 06, 2021 1:00am February 19, 2022 5:01pm Start: 03-06-2021 End: 02-19-2022 take 1 tablet by mouth once daily Multivitamin Discontinued 1 TABLET PO DAILY March 06, 2021 12:00am February 19, 2022 4:01pm nitrofurantoin, macrocrystals 100 mg oral capsule (10 sources) Nitrofuran Antibacterial Start: 01-21-2020 End: 01-28-2020 take 100 mg by mouth twice daily at mealtime Nitrofurantoin Macrocrystal Discontinued 100 MG PO TWICE A DAY 14 January 21, 2020 1:00am January 28, 2020 1:03am administer with food (meal or snack) norethindrone 0.35 mg oral tablet (10 sources) Start: 02-17-2020 End: 03-18-2020 take 1 tablet by mouth once daily Norethindrone (Contraceptive) (Ortho Micronor) 0.35 mg tablet Discontinued 0.35 MG PO DAILY February 17, 2020 1:00am March 18, 2020 11:55am start day 1 of menstrual cycle oxyCODONE hydrochloride 5 mg oral tablet (10 sources) Opioid Agonist Start: 01-09-2020 End: 01-16-2020 take 5 mg by mouth every six hours as needed for pain Oxycodone Discontinued 5 MG PO EVERY 6 HOURS NEEDED 15 09January 09, 2020 January 16, 2020 1:03am prn pain vitamin#30 30 mg iron-10 mg iron-folic acid 1 mg-omg3 capsule (10 sources) Start: 06-22-2019 End: 03-06-2021 vitamin#30 30 mg iron-10 mg iron-folic acid 1 mg-omg3 capsule Discontinued CAP PO June 22, 2019 12:00am March 06, 2021 1:54pm Start: 06-22-2019 End: 03-06-2021 vitamin#30 30 mg ir on-10 mg iron-folic acid 1 mg-omg3 capsule Discontinued CAP PO June 21, 2019 11:00pm March 06, 2021 12:54pm prochlorperazine 10 mg oral tablet (10 sources) Phenothiazine Start: 02-12-2022 End: 10-03-2022 take 1 tablet by mouth every eight hours Prochlorperazine Maleate (Compazine) 10 mg tablet Discontinued 10 MG PO Q8H February 12, 2022 1:00am October 03, 2022 5:55am sertraline 25 mg oral tablet (10 sources) Serotonin Reuptake Inhibitor Start: 01-13-2020 End: 03-06-2021 take 1 tablet by mouth once daily Sertraline (Zoloft) 25 mg tablet Discontinued 25 MG PO DAILY January 13, 2020 1:00am March 06, 2021 1:54pm Problems Problem Classification Problem Date Documented Da te Episodic/Chronic Anxiety disorders (10 sources) Anxiety; Translations: [Anxiety disorder, unspecified] 02-19-2022 Chronic Bacterial infection; unspecified site (10 sources) Bacteria present; Translations: [Streptococcus, group B, as the cause of diseases classified elsewhere] 02-17-2020 Episodic Coagulation and hemorrhagic disorders (20 sources) Platelet count below reference range; Translations: [Thrombocytopenia, unspecified] 04-09-2022 Chronic Genitourinary symptoms and ill-defined conditions (1 source) Dysuria; Translations: [Dysuria] 10-17-2022 Episodic Malaise and fatigue (10 sources) Fatigue; Translations: [Other fatigue] 03-09-2022 Episodic Malposition; malpresentation (10 sources) Breech presentation; Translations: [Maternal care for breech presentation, not applicable or unspecified] 02-17-2020 Episodic Miscellaneous mental health disorders (10 sources) depression; Translations: [ depression] 03-06-2021 Episodic Other aftercare (1 source) Encounter for follow-up examination after completed treatment for conditions other than malignant neoplasm; Translations: [Follow-up examination, following surgery, unspecified] 10-17-2022 Episodic Other complications of ; puerperium affecting management of mother (2 sources) Deliveries by ; Translations: [Encounter for delivery without indication] 10-05-2022 Episodic Other complications of ; puerperium affecting management of mother (3 sources) Encounter for delivery without indication; Translations: [ delivery, without mention of indication, delivered, with or without mention of antepartum condition] 10-05-2022 Episodic Other complications of (9 sources) Maternal obesity complicating , childbirth and the puerperium, antepartum; Translations: [Obesity complicating , unspecified trimester] 03-09-2022 Chronic Other complications of (20 sources) Obesity complicating , unspecified trimester; Translations: [Obesity complicating , childbirth, or the puerperium, unspecified as to episode of care or not applicable] 04-06-2022 Chronic Other complications of (10 sources) Rubella non-immune; Translations: [Supervision of other high risk pregnancies, unspecified trimester] 02-17-2020 Episodic Other complications of (20 sources) High risk ; Translations: [Supervision of high risk , unspecified, unspecified trimester] 02-17-2020 Episodic Other complications of (20 sources) Supervision of high risk , unspecified, unspecified trimester; Translations: [Supervision of unspecified high-risk ] 03-09-2022 Episodic Other complications of (4 sources) Reduced movement; Translations: [Decreased movements, third trimester, not applicable or unspecified] 09-10-2022 Episodic Other complications of (4 sources) Decreased movements, third trimester, not applicable or unspecified; Translations: [Decreased movements, affecting management of mother, antepartum condition or complication] 09-10-2022 Episodic Other female genital disorders (10 sources) History of abnormal cervical Papanicolaou smear ; Translations: [Personal history of other diseases of the female genital tract] 02-17-2020 Episodic Other nutritional; endocrine; and metabolic disorders (10 sources) Body mass index 30+ - obesity; Translations: [Body mass index (BMI) 31.0-31.9, adult] 03-09-2022 Chronic Other nutritional; endocrine; and metabolic disorders (3 sources) Body mass index (BMI) 31.0-31.9, adult; Translations: [Body Mass Index 31.0-31.9, adult] 03-09-2022 Chronic Other and delivery including normal (20 sources) ; Translations: [Encounter for supervision of normal , unspecified, unspecified trimester] 03-09-2022 Episodic Other skin disorders (10 sources) Loss of hair; Translations: [Nonscarring hair loss, unspecified] 03-09-2022 Episodic Other upper respiratory disease (10 sources) Seasonal allergy; Translations: [Other seasonal allergic rhinitis] 03-09-2022 Chronic Other upper respiratory disease (3 sources) Other seasonal allergic rhinitis; Translations: [Allergic rhinitis, cause unspecified] 03-09-2022 Chronic Residual codes; unclassified (10 sources) History of anesthesia problem; Translations: [Personal history of other specified conditions] 03-09-2022 Episodic Residual codes; unclassified (10 sources) Influenza vaccination declined; Translations: [Immunization not carried out because of patient refusal] 02-17-2020 Episodic Residual codes; unclassified (10 sources) Gestation period, 36 weeks; Translations: [36 weeks gestation of ] 02-17-2020 Episodic Residual codes; unclassified (20 sources) History of uterine scar from previous surgery; Translations: [Other postprocedural status] 03-09-2022 Episodic Results Test Name Value Interpretation Reference Range Facility Culture, urineOrdered By: Rohan Garvey on 10-17-2022 Bacteria identified Cx Nom (U) Mixed Gram Pos & Gram Neg Org [facility] - Chemistry and C hemistry - challengeon 10-17-2022 Bilirubin Ql (U) Negative [facility] Glucose Ql (U) Negative [facility] Ketones Ql (U) Negative [facility] pH (U) 5.0 [pH] [facility] Specific gravity (U) [Rel density] 1.[address] [facility] Urobilinogen (U) [Mass/Vol] Negative [facility] - Hematology and Cell countson 10-17-2022 Hemoglobin Ql (U) Negative [facility] - Specimen inform ationon 10-17-2022 Clarity (U) Cloudy [facility] Color (U) YELLOW [facility] Laboratory - Urinalysison Nitrite Ql (U) Negative [facility] Protein Ql (U) Negative [facility] No Panel Informationon 10-17 Urine Leukocytes Positive [facility] Urine Non-Hemolyzed Blood Small [facility] Basophil percentageOrdered B y: Gabby Camarena on 10-04-2022 WBC (Bld) [#/Vol] 11.0 10*3/uL 4.4-11.0 [facility] Blood erythrocytes count (nu mber/volume)Ordered By: Gabby Camarena on 10-04-2022 RBC (Bld) [#/Vol] 3.73 10*6/uL 4.2-5.4 [facility] Blood hemoglobin measurement (mass/volume)Ordered By: Gabby Camarena on 10-04-2022 Hemoglobin (Bld) [Mass/Vol] 11.3 g/dL 12.0-15.[address] [facility] Blood platelet mean volumeOr dered By: Gabby Camarena on 10-04-2022 Platelet mean volume (Bld) [Entitic vol] 9.7 fL 6.2-12.[address] [facility] Determination of erythrocyte mean corpuscular volume (MCV)Ordered By: Gabby Camarena on 10-04-2022 MCV (RBC) [Entitic vol] 92.0 fL 81-99 [facility] Hematocrit Auto (Bld) [Volum e fraction]Ordered By: Gabby Camarena on 10-04-2022 Hematocrit (Bld) [Volume fraction] 34.3 % 37-[address] [facility] - Hematology and Cell countsOrdered By: Gabby Camarena on 10-04-2022 Erythrocyte distribution width (RBC) [Entitic vol] 42.5 fL 35.1-43.[address] [facility] Erythrocyte distribution width (RBC) [Ratio] 12.8 % 11.6-14.[address] [facility] MCH (RBC) [Entitic mass] 30.3 pg 27.0-32.[address] [facility] MCHC Auto (RBC) [Mass/Vol]Or dered By: Gabby Camarena on 10-04-2022 MCHC (RBC) [Mass/Vol] 32.9 g/dL 32-36 [facility] Platelets bldOrdered By: Jinny Camarena on 10-04-2022 Platelets (Bld) [#/Vol] 105 10*3/uL 150-[address] [facility] Absolute lymphocyte countOrd ered By: Gabby Camarena on 10-03-2022 Lymphocytes Auto (Unsp spec) [#/Vol] 1.12 10*3/uL 0.83-4.[address] [facility] Basophil percentageOrdered B y: Gabby Camarena on 10-03-2022 Basophils/100 WBC (Bld) 0.5 % 0-1 [facility] Eosinophils/100 WBC (Bld) 1.0 % 0-[address] [facility] Neutrophils (Bld) [#/Vol] 7.6 10*3/uL 2.0-7.[address] [facility] Neutrophils/100 WBC (Bld) 80.0 % 47-[address] [facility] Blood lymphocytes/100 leukoc ytesOrdered By: Gabby Camarena on 10-03-2022 Lymphocytes/100 WBC (Bld) 11.8 % 19-[address] [facility] Blood monocytes/100 leukocyt esOrdered By: Gabby Camarena on 10-03-2022 Monocytes/100 WBC (Bld) 5.5 % 0-10 [facility] - Hematology and Cell countsOrdered By: Gabby Camarena on 10-03-2022 Immature granulocytes/100 WBC (Bld) 1.200 % 0.0-0.[address] [facility] Comment on above: IG% - Immature Granu locytes (promyelocytes, myelocytes and metamyelocytes) > 1% indicates that a LEFT SHIFT is Present. Nucleated RBC/100 WBC (Bld) [Ratio] 0 % 0-[address] [facility] Serum Treponema species anti body detectionOrdered By: Gabby Camarena on 10-03-2022 Treponema sp Ab Ql (S) Non-Reactive [facility] - Chemistry and C hemistry - challengeon 10-02-2022 Glucose Ql (U) Negative [facility] Laboratory - Urinalysison Protein Ql (U) Negative [facility] - Chemistry and C hemistry - challengeon 09-25-2022 Glucose Ql (U) Negative [facility] - Urinalysison Protein Ql (U) Negative [facility] - Chemistry and C hemistry - challengeon 09-17-2022 Glucose Ql (U) Negative [facility] - Urinalysison Protein Ql (U) Negative [facility] No Panel InformationOrdered By: Ilsa Figueroa on 09-17-2022 Group B Streptococcus Culture Group B Beta Streptococcus is not isolated. [facility] Absolute lymphocyte countOrd ered By: Gabby Camarena on 09-10-2022 Lymphocytes Auto (Unsp spec) [#/Vol] 1.33 10*3/uL 0.83-4.[address] [facility] Basophil percentageOrdered B y: Gabby Camarena on 09-10-2022 Basophils/100 WBC (Bld) 0.6 % 0-1 [facility] Eosinophils/100 WBC (Bld) 0.8 % 0-[address] [facility] Neutrophils (Bld) [#/Vol] 8.1 10*3/uL 2.0-7.[address] [facility] Neutrophils/100 WBC (Bld) 76.7 % 47-[address] [facility] WBC (Bld) [#/Vol] 10.5 10*3/uL 4.4-11.0 [facility] Blood erythrocytes count (nu mber/volume)Ordered By: Gabby Camarena on 09-10-2022 RBC (Bld) [#/Vol] 4.16 10*6/uL 4.2-5.4 [facility] Blood hemoglobin measurement (mass/volume)Ordered By: Gabby Camarena on 09-10-2022 Hemoglobin (Bld) [Mass/Vol] 12.8 g/dL 12.0-15.[address] [facility] Blood lymphocytes/100 leukoc ytesOrdered By: Gabby Camarena on 09-10-2022 Lymphocytes/100 WBC (Bld) 12.7 % 19-[address] [facility] Blood monocytes/100 leukocyt esOrdered By: Gabby Camarena on 09-10-2022 Monocytes/100 WBC (Bld) 7.1 % 0-10 [facility] Blood platelet mean volumeOr dered By: Gabby Camarena on 09-10-2022 Platelet mean volume (Bld) [Entitic vol] 9.6 fL 6.2-12.[address] [facility] Determination of erythrocyte mean corpuscular volume (MCV)Ordered By: Gabby Camarena on 09-10-2022 MCV (RBC) [Entitic vol] 92.3 fL 81-99 [facility] Hematocrit Auto (Bld) [Volum e fraction]Ordered By: Gabby Camarena on 09-10-2022 Hematocrit (Bld) [Volume fraction] 38.4 % 37-[address] [facility] - Chemistry and C hemistry - challengeon 09-10-2022 Glucose Ql (U) Negative [facility] - Hematology and Cell countsOrdered By: Gabby Camarena on 09-10-2022 Erythrocyte distribution width (RBC) [Entitic vol] 42.9 fL 35.1-43.[address] [facility] Erythrocyte distribution width (RBC) [Ratio] 12.8 % 11.6-14.[address] [facility] Immature granulocytes/100 WBC (Bld) 2.100 % 0.0-0.[address] [facility] Comment on above: IG% - Immature Granu locytes (promyelocytes, myelocytes and metamyelocytes) > 1% indicates that a LEFT SHIFT is Present. MCH (RBC) [Entitic mass] 30.8 pg 27.0-32.[address] [facility] Nucleated RBC/100 WBC (Bld) [Ratio] 0 % 0-[address] [facility] Laboratory - Urinalysison Protein Ql (U) Negative [facility] MCHC Auto (RBC) [Mass/Vol]Or dered By: Gabby Camarena on 09-10-2022 MCHC (RBC) [Mass/Vol] 33.3 g/dL 32-36 [facility] Platelets bldOrdered By: Jinny Camarena on 09-10-2022 Platelets (Bld) [#/Vol] 112 10*3/uL 150-[address] [facility] - Chemistry and C hemistry - challengeon 08-27-2022 Glucose Ql (U) Negative [facility] - Urinalysison Protein Ql (U) Negative [facility] Absolute lymphocyte countOrd ered By: Dr. Camarena on 08-15-2022 Lymphocytes Auto (Unsp spec) [#/Vol] 1.22 10*3/uL 0.83-4.[address] [facility] Basophil percentageOrdered B y: Dr. Camarena on 08-15-2022 Basophils/100 WBC (Bld) 0.6 % 0-1 [facility] Eosinophils/100 WBC (Bld) 0.8 % 0-[address] [facility] Neutrophils (Bld) [#/Vol] 9.7 10*3/uL 2.0-7.[address] [facility] Neutrophils/100 WBC (Bld) 80.3 % 47-[address] [facility] WBC (Bld) [#/Vol] 12.1 10*3/uL 4.4-11.0 [facility] Blood erythrocytes count (nu mber/volume)Ordered By: Dr. Camarena on 08-15-2022 RBC (Bld) [#/Vol] 4.32 10*6/uL 4.2-5.4 [facility] Blood hemoglobin measurement (mass/volume)Ordered By: Dr. Camarena on 08-15-2022 Hemoglobin (Bld) [Mass/Vol] 13.0 g/dL 12.0-15.[address] [facility] Blood lymphocytes/100 leukoc ytesOrdered By: Dr. Camarena on 08-15-2022 Lymphocytes/100 WBC (Bld) 10.1 % 19-[address] [facility] Blood monocytes/100 leukocyt esOrdered By: Dr. Camarena on 08-15-2022 Monocytes/100 WBC (Bld) 6.4 % 0-10 [facility] Blood platelet mean volumeOr dered By: Dr. Camarena on 08-15-2022 Platelet mean volume (Bld) [Entitic vol] 9.5 fL 6.2-12.[address] [facility] Determination of erythrocyte mean corpuscular volume (MCV)Ordered By: Dr. Camarena on 08-15-2022 MCV (RBC) [Entitic vol] 92.8 fL 81-99 [facility] Hematocrit Auto (Bld) [Volum e fraction]Ordered By: Dr. Camarena on 08-15-2022 Hematocrit (Bld) [Volume fraction] 40.1 % 37-[address] [facility] Laboratory - Chemistry and C hemistry - challengeon 08-15-2022 Glucose Ql (U) Negative [facility] - Hematology and Cell countsOrdered By: Dr. Camarena on 08-15-2022 Erythrocyte distribution width (RBC) [Entitic vol] 43.2 fL 35.1-43.[address] [facility] Erythrocyte distribution width (RBC) [Ratio] 12.8 % 11.6-14.[address] [facility] Immature granulocytes/100 WBC (Bld) 1.800 % 0.0-0.[address] [facility] Comment on above: IG% - Immature Granu locytes (promyelocytes, myelocytes and metamyelocytes) > 1% indicates that a LEFT SHIFT is Present. MCH (RBC) [Entitic mass] 30.1 pg 27.0-32.[address] [facility] Nucleated RBC/100 WBC (Bld) [Ratio] 0 % 0-[address] [facility] Laboratory - Urinalysison Protein Ql (U) Negative [facility] MCHC Auto (RBC) [Mass/Vol]Or dered By: Dr. Camarena on 08-15-2022 MCHC (RBC) [Mass/Vol] 32.4 g/dL 32-36 [facility] Platelets bldOrdered By: Dr. Camarena on 08-15-2022 Platelets (Bld) [#/Vol] 133 10*3/uL 150-[address] [facility] Laboratory - Chemistry and C hemistry - challengeon 08-01-2022 Glucose Ql (U) Negative [facility] Laboratory - Urinalysison Protein Ql (U) Negative [facility] Absolute lymphocyte countOrd ered By: Dr. Camarena on 07-16-2022 Lymphocytes Auto (Unsp spec) [#/Vol] 1.42 10*3/uL 0.83-4.[address] [facility] Basophil percentageOrdered B y: Dr. Camarena on 07-16-2022 Basophils/100 WBC (Bld) 0.5 % 0-1 [facility] Eosinophils/100 WBC (Bld) 0.9 % 0-[address] [facility] Neutrophils (Bld) [#/Vol] 10.6 10*3/uL 2.0-7.[address] [facility] Neutrophils/100 WBC (Bld) 80.6 % 47-[address] [facility] WBC (Bld) [#/Vol] 13.2 10*3/uL 4.4-11.0 [facility] Blood erythrocytes count (nu mber/volume)Ordered By: Dr. Camarena on 07-16-2022 RBC (Bld) [#/Vol] 4.20 10*6/uL 4.2-5.4 [facility] Blood hemoglobin measurement (mass/volume)Ordered By: Dr. Camarena on 07-16-2022 Hemoglobin (Bld) [Mass/Vol] 12.8 g/dL 12.0-15.[address] [facility] Blood lymphocytes/100 leukoc ytesOrdered By: Dr. Camarena on 07-16-2022 Lymphocytes/100 WBC (Bld) 10.8 % 19-[address] [facility] Blood monocytes/100 leukocyt esOrdered By: Dr. Camarena on 07-16-2022 Monocytes/100 WBC (Bld) 5.5 % 0-10 [facility] Blood platelet mean volumeOr dered By: Dr. Camarena on 07-16-2022 Platelet mean volume (Bld) [Entitic vol] 9.4 fL 6.2-12.[address] [facility] Determination of erythrocyte mean corpuscular volume (MCV)Ordered By: Dr. Camarena on 07-16-2022 MCV (RBC) [Entitic vol] 91.4 fL 81-99 [facility] Hematocrit Auto (Bld) [Volum e fraction]Ordered By: Dr. Camarena on 07-16-2022 Hematocrit (Bld) [Volume fraction] 38.4 % 37-[address] [facility] Laboratory - Chemistry and C hemistry - challengeon 07-16-2022 Glucose Ql (U) Negative [facility] Laboratory - Hematology and Cell countsOrdered By: Dr. Camarena on 07-16-2022 Erythrocyte distribution width (RBC) [Entitic vol] 42.6 fL 35.1-43.[address] [facility] Erythrocyte distribution width (RBC) [Ratio] 13.0 % 11.6-14.[address] [facility] Immature granulocytes/100 WBC (Bld) 1.700 % 0.0-0.[address] [facility] Comment on above: IG% - Immature Granu locytes (promyelocytes, myelocytes and metamyelocytes) > 1% indicates that a LEFT SHIFT is Present. MCH (RBC) [Entitic mass] 30.5 pg 27.0-32.[address] [facility] Nucleated RBC/100 WBC (Bld) [Ratio] 0 % 0-[address] [facility] Laboratory - Urinalysison Protein Ql (U) Negative [facility] MCHC Auto (RBC) [Mass/Vol]Or dered By: Dr. Camarena on 07-16-2022 MCHC (RBC) [Mass/Vol] 33.3 g/dL 32-36 [facility] Platelets bldOrdered By: Dr. Camarena on 07-16-2022 Platelets (Bld) [#/Vol] 128 10*3/uL 150-[address] [facility] Absolute lymphocyte countOrd ered By: Dr. Camarena on 07-11-2022 Lymphocytes Auto (Unsp spec) [#/Vol] 1.86 10*3/uL 0.83-4.[address] [facility] Basophil percentageOrdered B y: Dr. Camarena on 07-11-2022 Basophils/100 WBC (Bld) 0.5 % 0-1 [facility] Eosinophils/100 WBC (Bld) 1.0 % 0-[address] [facility] Neutrophils (Bld) [#/Vol] 8.8 10*3/uL 2.0-7.[address] [facility] Neutrophils/100 WBC (Bld) 74.5 % 47-[address] [facility] WBC (Bld) [#/Vol] 11.8 10*3/uL 4.4-11.0 [facility] Blood erythrocytes count (nu mber/volume)Ordered By: Dr. Camarena on 07-11-2022 RBC (Bld) [#/Vol] 4.05 10*6/uL 4.2-5.4 [facility] Blood hemoglobin measurement (mass/volume)Ordered By: Dr. Camarena on 07-11-2022 Hemoglobin (Bld) [Mass/Vol] 12.1 g/dL 12.0-15.[address] [facility] Blood lymphocytes/100 leukoc ytesOrdered By: Dr. Camarena on 07-11-2022 Lymphocytes/100 WBC (Bld) 15.7 % 19-[address] [facility] Blood monocytes/100 leukocyt esOrdered By: Dr. Camarena on 07-11-2022 Monocytes/100 WBC (Bld) 6.4 % 0-10 [facility] Blood platelet mean volumeOr dered By: Dr. Camarena on 07-11-2022 Platelet mean volume (Bld) [Entitic vol] 9.5 fL 6.2-12.[address] [facility] Determination of erythrocyte mean corpuscular volume (MCV)Ordered By: Dr. Camarena on 07-11-2022 MCV (RBC) [Entitic vol] 91.6 fL 81-99 [facility] Gestational diabetes screen 1-hour screen with 50g oral glucose loadOrdered By: Dr. Camarena on 07-11-2022 Glucose 1 Hr post 50 g glucose PO [Mass/Vol] 123 mg/dL 70-[address] [facility] HIV 1 and HIV-2 antibody ass ay with HIV-1 p24 antigen detectionOrdered By: Dr. Cmaarena on 07-11-2022 HIV 1+2 Ab+HIV1 p24 Ag IA Ql Non-Reactive Nonreactive [facility] Hematocrit Auto (Bld) [Volum e fraction]Ordered By: Dr. Camarena on 07-11-2022 Hematocrit (Bld) [Volume fraction] 37.1 % 37-[address] [facility] Laboratory - Hematology and Cell countsOrdered By: Dr. Camarena on 07-11-2022 Erythrocyte distribution width (RBC) [Entitic vol] 42.4 fL 35.1-43.[address] [facility] Erythrocyte distribution width (RBC) [Ratio] 12.9 % 11.6-14.[address] [facility] Immature granulocytes/100 WBC (Bld) 1.900 % 0.0-0.[address] [facility] Comment on above: IG% - Immature Granu locytes (promyelocytes, myelocytes and metamyelocytes) > 1% indicates that a LEFT SHIFT is Present. MCH (RBC) [Entitic mass] 29.9 pg 27.0-32.[address] [facility] Nucleated RBC/100 WBC (Bld) [Ratio] 0 % 0-[address] [facility] MCHC Auto (RBC) [Mass/Vol]Or dered By: Dr. Camarena on 07-11-2022 MCHC (RBC) [Mass/Vol] 32.6 g/dL 32-36 [facility] Platelets bldOrdered By: Dr. Camarena on 07-11-2022 Platelets (Bld) [#/Vol] 128 10*3/uL 150-[address] [facility] Serum Treponema species anti body detectionOrdered By: Dr. Camarena on 07-11-2022 Treponema sp Ab Ql (S) Non-Reactive [facility] Laboratory - Chemistry and C hemistry - challengeon 06-29-2022 Glucose Ql (U) Negative [facility] Laboratory - Urinalysison Protein Ql (U) Negative [facility] Laboratory - Chemistry and C hemistry - challengeon 05-28-2022 Glucose Ql (U) Negative [facility] Laboratory - Urinalysison Protein Ql (U) Negative [facility] Absolute lymphocyte countOrd ered By: Dr. Figueroa on 05-02-2022 Lymphocytes Auto (Unsp spec) [#/Vol] 1.58 10*3/uL 0.83-4.[address] [facility] Basophil percentageOrdered B y: Dr. Figueroa on 05-02-2022 Basophils/100 WBC (Bld) 0.5 % 0-1 [facility] Eosinophils/100 WBC (Bld) 1.1 % 0-[address] [facility] Neutrophils (Bld) [#/Vol] 6.6 10*3/uL 2.0-7.[address] [facility] Neutrophils/100 WBC (Bld) 74.0 % 47-[address] [facility] WBC (Bld) [#/Vol] 8.8 10*3/uL 4.4-11.0 [facility] Blood erythrocytes count (nu mber/volume)Ordered By: Dr. Figueroa on 05-02-2022 RBC (Bld) [#/Vol] 4.21 10*6/uL 4.2-5.4 [facility] Blood hemoglobin measurement (mass/volume)Ordered By: Dr. Figueroa on 05-02-2022 Hemoglobin (Bld) [Mass/Vol] 12.8 g/dL 12.0-15.[address] [facility] Blood lymphocytes/100 leukoc ytesOrdered By: Dr. Figueroa on 05-02-2022 Lymphocytes/100 WBC (Bld) 17.9 % 19-[address] [facility] Blood monocytes/100 leukocyt esOrdered By: Dr. Figueroa on 05-02-2022 Monocytes/100 WBC (Bld) 5.8 % 0-10 [facility] Blood platelet mean volumeOr dered By: Dr. Figueroa on 05-02-2022 Platelet mean volume (Bld) [Entitic vol] 9.2 fL 6.2-12.[address] [facility] Determination of erythrocyte mean corpuscular volume (MCV)Ordered By: Dr. Figueroa on 05-02-2022 MCV (RBC) [Entitic vol] 88.1 fL 81-99 [facility] Hematocrit Auto (Bld) [Volum e fraction]Ordered By: Dr. Figueroa on 05-02-2022 Hematocrit (Bld) [Volume fraction] 37.1 % 37-[address] [facility] Laboratory - Chemistry and C hemistry - challengeon 05-02-2022 Glucose Ql (U) Negative [facility] Laboratory - Hematology and Cell countsOrdered By: Dr. Figueroa on 05-02-2022 Erythrocyte distribution width (RBC) [Entitic vol] 40.1 fL 35.1-43.[address] [facility] Erythrocyte distribution width (RBC) [Ratio] 12.4 % 11.6-14.[address] [facility] Immature granulocytes/100 WBC (Bld) 0.700 % 0.0-0.[address] [facility] Comment on above: IG% - Immature Granu locytes (promyelocytes, myelocytes and metamyelocytes) > 1% indicates that a LEFT SHIFT is Present. MCH (RBC) [Entitic mass] 30.4 pg 27.0-32.[address] [facility] Nucleated RBC/100 WBC (Bld) [Ratio] 0 % 0-[address] [facility] Laboratory - Urinalysison Protein Ql (U) Negative [facility] MCHC Auto (RBC) [Mass/Vol]Or dered By: Dr. Figueroa on 05-02-2022 MCHC (RBC) [Mass/Vol] 34.5 g/dL 32-36 [facility] Platelets bldOrdered By: Dr. Figueroa on 05-02-2022 Platelets (Bld) [#/Vol] 150 10*3/uL 150-[address] [facility] Absolute lymphocyte countOrd ered By: Dr. Figueroa on 04-06-2022 Lymphocytes Auto (Unsp spec) [#/Vol] 1.09 10*3/uL 0.83-4.[address] [facility] Basophil percentageOrdered B y: Dr. Figueroa on 04-06-2022 Basophils/100 WBC (Bld) 0.5 % 0-1 [facility] Eosinophils/100 WBC (Bld) 1.4 % 0-[address] [facility] Neutrophils (Bld) [#/Vol] 6.7 10*3/uL 2.0-7.[address] [facility] Neutrophils/100 WBC (Bld) 78.8 % 47-[address] [facility] WBC (Bld) [#/Vol] 8.5 10*3/uL 4.4-11.0 [facility] Blood erythrocytes count (nu mber/volume)Ordered By: Dr. Figueroa on 04-06-2022 RBC (Bld) [#/Vol] 4.41 10*6/uL 4.2-5.4 [facility] Blood hemoglobin measurement (mass/volume)Ordered By: Dr. Figueroa on 04-06-2022 Hemoglobin (Bld) [Mass/Vol] 13.2 g/dL 12.0-15.[address] [facility] Blood lymphocytes/100 leukoc ytesOrdered By: Dr. Figueroa on 04-06-2022 Lymphocytes/100 WBC (Bld) 12.8 % 19-[address] [facility] Blood monocytes/100 leukocyt esOrdered By: Dr. Figueroa on 04-06-2022 Monocytes/100 WBC (Bld) 6.0 % 0-10 [facility] Blood platelet mean volumeOr dered By: Dr. Figueroa on 04-06-2022 Platelet mean volume (Bld) [Entitic vol] 9.3 fL 6.2-12.[address] [facility] Determination of erythrocyte mean corpuscular volume (MCV)Ordered By: Dr. Figueroa on 04-06-2022 MCV (RBC) [Entitic vol] 87.8 fL 81-99 [facility] Gestational diabetes screen 1-hour screen with 50g oral glucose loadOrdered By: Dr. Figueroa on 04-06-2022 Glucose 1 Hr post 50 g glucose PO [Mass/Vol] 126 mg/dL 70-[address] [facility] HIV 1 and HIV-2 antibody ass ay with HIV-1 p24 antigen detectionOrdered By: Dr. Figueroa on 04-06-2022 HIV 1+2 Ab+HIV1 p24 Ag IA Ql Non-Reactive Nonreactive [facility] Hematocrit Auto (Bld) [Volum e fraction]Ordered By: Dr. Figueroa on 04-06-2022 Hematocrit (Bld) [Volume fraction] 38.7 % 37-[address] [facility] Laboratory - Chemistry and C hemistry - challengeon 04-06-2022 Glucose Ql (U) Negative [facility] Laboratory - Drug toxicology Ordered By: Dr. Figueroa on 04-06-2022 Amphetamines Ql (U) Negative <1000 ng/mL [facility] Benzodiazepines Ql (U) Negative < 200 ng/mL [facility] Cannabinoids Screen Ql (U) Negative < 50 ng/mL [facility] Cocaine Ql (U) Negative < 300 ng/mL [facility] Opiates Ql (U) Negative < 300 ng/mL [facility] Laboratory - Hematology and Cell countsOrdered By: Dr. Figueroa on 04-06-2022 Erythrocyte distribution width (RBC) [Entitic vol] 39.0 fL 35.1-43.[address] [facility] Erythrocyte distribution width (RBC) [Ratio] 12.1 % 11.6-14.[address] [facility] Immature granulocytes/100 WBC (Bld) 0.500 % 0.0-0.[address] [facility] Comment on above: IG% - Immature Granu locytes (promyelocytes, myelocytes and metamyelocytes) > 1% indicates that a LEFT SHIFT is Present. MCH (RBC) [Entitic mass] 29.9 pg 27.0-32.[address] [facility] Nucleated RBC/100 WBC (Bld) [Ratio] 0 % 0-[address] [facility] Laboratory - Urinalysison Protein Ql (U) Negative [facility] MCHC Auto (RBC) [Mass/Vol]Or dered By: Dr. Figueroa on 04-06-2022 MCHC (RBC) [Mass/Vol] 34.1 g/dL 32-36 [facility] No Panel InformationOrdered By: Dr. Figueroa on 04-06-2022 Hepatitis B Surface Antigen Non-Reactive Nonreactive [facility] Hepatitis C Antibody Non-Reactive Nonreactive [facility] Comment on above: Non Reactive: < 0.8 Equivocal: >/= 0.8 to < 1.0 Reactive: >/= 1.0The CDC recommends that a reactive/equivocal HCV antibody result be followed up by the HCV Nucleic Acid Amplificationtest (645855) MDMA (Ecstasy) Screen Negative < 500 ng/mL [facility] Rubella IgG Antibody Equiv Nonreactive [facility] Comment on above: Antibody Results Int erpretation of Immune Status Non Reactive Presumed Non-Immune Equivocal Equivocal Reactive Presumed Immune Urine Barbiturates Screen Negative < 200 ng/mL [facility] Urine Drug Screen Comment [facility] Comment on above: CONFIRMATORY TESTING FOR ALL POSITIVE URINE DRUG SCREENRESULTS WILL ONLY BE SENT OUT UPON PHYSICIAN ORDER. VISTA Urine Drug Screen methods provide only preliminaryanalytical test results. A more specific alternate chemicalmethod must be used in order to obtain a confirmedanalytical result. Gas chromatography/mass spectrometery(GC/MS) is the preferred confirmatory method. Clinicalconsideration and professional judgement should be appliedto any drug of abuse test result, particularly whenpreliminary positive results are used. URINE TCA TESTING MUST BE ORDERED SEPARATELY. USE TESTMNEMONIC: [facility] Urine Methadone Screen Negative < 300 ng/mL [facility] Platelets bldOrdered By: Dr. Figueroa on 04-06-2022 Platelets (Bld) [#/Vol] 137 10*3/uL 150-[address] [facility] Serum Treponema species anti body detectionOrdered By: Dr. Figueroa on 04-06-2022 Treponema sp Ab Ql (S) Non-Reactive [facility] Urine phencyclidine (PCP) de tectionOrdered By: Dr. Figueroa on 04-06-2022 Phencyclidine Ql (U) Negative < 25 ng/mL [facility] Culture, urineOrdered By: Dr Cynthia Figueroa on 03-11-2022 Bacteria identified Cx Nom (U) Culture exhibits no growth. [facility] Chlamydia trachomatis rRNA d etection by probe and target amplification methodOrdered By: Dr. Figueroa on 03-09-2022 C. trachomatis rRNA MARCOS+probe Ql (Unsp spec) Negative Negative [facility] Laboratory - Microbiology an d Antimicrobial susceptibilityOrdered By: Dr. Figueroa on 03-09-2022 N. gonorrhoeae DNA MARCOS+probe Ql (Unsp spec) Negative Negative [facility] Comment on above: Performed at: =G - L [address] [id number] Director: Sandra Vasquez MD, Phone: [phone] [facility] 05-29-2017 CNCO Letter [facility], [address] [address]Kwwlk: [phone]: [phone] 2017RE: Lasha Rosas1817 [facility] [address] [place] [id number] Parent/Guardian of Lasha,We have tried to contact you in regards to your child'Brittany for Routine PhysicalOur efforts to reach you have been unsuccessful. Please call [phone] to coordinate your child's plan of care. Thank you and we lookforward to talking with you.Sincerely,[facility] Group A Strep by PCRon 05-24 GAS Specimen Source Throat Swab Normal [facility] Comment on above: Performed By: #### G ASPCR ####[facility] [address] [place], [place] [phone] Group A Strep PCR Negative Normal [facility] Comment on above: Result Comment: This test was developed and its performance characteristics determined by [facility]'s [facility] [place] ([facility]).It has not been cleared or approved by the FDA. [facility] is regulated under CLIA as qualified to perform high-complexity testing. This test is used for clinical purposes. It should not be regarded as investigational or for research. Performed By: #### G ASPCR ####[facility] [place], [place] [phone] CNOVon 05-23-2017 CNOV Office Visit (UCWSTR) Arcenio ROSAS ([id number]) [address] [facility] Time Provider Department05/23/17 9:15 AM MIGUELINA MORALES (RENETTA) [facility] During your visit today, we recorded the following information about you: Temperature Pulse Respiration Blood pressure 98.5 degrees 70/minute 16/minute 120/80 Weight 82.6 kgMiguelina Morales APRN.CNP, APRN.CNP 05/23/2017 10:11 AM SignedSubjectiveHPIHPI Lasha Rosas is a 21 year old female who presents today for CC of nasalcongestion, sore throat. This started 5 days ago, sore throat has persisted.Has tried otc medication with relief. Symptoms are worsened by nothing. Riskfactors sick exposures at work. Uncertain of status, due for periodsoon..Patient presents with:Sore ThroatPAST MEDICAL HISTORYDiagnosis Date- AcnePAST SURGICAL HISTORYProcedure Laterality Date- KNEE SURGERY HX 03/2014 leftALLERGIES Review of patient's allergies indicates no known allergies.MEDICATIONSDro spirenone-Ethinyl Estradiol (DENISA, 28,) 3-0.03 mg per tablet Take 1 tabletby mouth once daily. Active pills only, discard placebo pills.multivitamin tablet Take 1 tablet by mouth once daily.FAMILY HISTORYProblem Relation Age of Onset- None Mother- None Father- Cancer Maternal Grandfather- Cancer Paternal Grandmother LeukemiaSocial HistorySubstance Use Topics- Smoking status: Never Smoker- Smokeless tobacco: Never Used- Alcohol use NoReview of SystemsConstitutional: Negative for chills, fever and weight loss.HENT: Positive for congestion and sore throat. Negative for ear pain andnosebleeds.Respirator y: Negative for cough, shortness of breath and wheezing.Musculoskeletal : Negative for neck pain.Skin: Negative for itching and rash.ObjectiveBlood pressure 120/80, pulse 70, temperature 36.9 ?C (98.5 ?F), temperaturesource Left Tympanic, resp. rate 16, weight 82.6 kg (182 lb).Physical ExamConstitutional: She is oriented to person, place, and time and well-developed,well-nour ished, and in no distress. Non-toxic appearance. She does not have asickly appearance. No distress.HENT:Head: Normocephalic and atraumatic.Right Ear: Hearing, tympanic membrane, external ear and ear canal normal.Left Ear: Hearing, tympanic membrane, external ear and ear canal normal.Nose: Nose normal.Mouth/Throat: Uvula is midline and mucous membranes are normal. Oropharyngealexudate and posterior oropharyngeal erythema present. No posteriororopharyngeal edema or tonsillar abscesses.Eyes: Conjunctivae and lids are normal. Pupils are equal, round, and reactiveto light. Right eye exhibits no discharge. Left eye exhibits no discharge. Noscleral icterus.Neck: Trachea normal and normal range of motion. Neck supple.Cardiovascular: Normal rate, regular rhythm and normal heart sounds.Pulmonary/Chest: Effort normal and breath sounds normal.Lymphadenopathy: She has no cervical adenopathy.Neurological: She is alert and oriented to person, place, and time.Skin: No rash noted. She is not diaphoretic. ASSESSMENT/PLAN:1. Sore throat - ICD9: 462, ICD10: J02.9- suspect viral- Rapid Strep negative in the office today and Throat culture pending- Discussed supportive care treatment with fluids, rest and analgesia.- The patient should follow up in 3-5 days if symptoms persist or worsen- Call back if drooling, increased temperature, symptoms of dehydration and/orstill sick in one week- RAPID STREP TEST B/O- GROUP A STREPTOCOCCUS BY PCRPrescription instructions reviewed with patient as applicable. Patient advisedif symptoms do not improve or if symptoms worsen sooner, to contact the officefor further evaluation by their primary care physician. Potential red flagsymptoms discussed with the patient. Reviewed appropriate action plan to takeif red flag symptoms occur. Patient agreeable to treatment plan.Wendy Shah APRN.CNP, APRN.CNP 05/23/2017 10:00 AM SignedASSESSMENT/PLAN:1. Sore throat - ICD9: 462, ICD10: J02.9- suspect viral- Rapid Strep negative in the office today and Throat culture pending- Discussed supportive care treatment with fluids, rest and analgesia.- The patient should follow up in 3-5 days if symptoms persist or worsen- Call back if drooling, increased temperature, symptoms of dehydration and/orstill sick in one week- RAPID STREP TEST B/O- GROUP A STREPTOCOCCUS BY PCRMiguelina Morales APRN.CNPReferring Provider: SELF [200]Allergies As of Date: 05/23/2017(No Known Allergies)Date Reviewed: 05/23/2017Reviewed by: Miguelina Morales APRN.CNP - Fully AssessedReason for Visit: Sore Throat [200]Primary Visit Diagnosis:Sore throat [J02.9]Order(s):RAPID STREP TEST B/O [[id number]] Order #: [id number] GROUP A STREPTOCOCCUS BY PCR [SQGASPCR] Order #: [id number] as of 05/23/2017 Sig: DROSPIRENONE 3 MG-ETHINYL EST* Take 1 tablet by mouth once d* MULTIVITAMIN TABLET Take 1 tablet by mouth once d*Problem List As Of Date: 05/23/2017(None) Other instructions from your clinician: ASSESSMENT/PLAN: 1. Sore throat - ICD9: 462, ICD10: J02.9 - suspect viral - Rapid Strep negative in the office today and Throat culture pending - Discussed supportive care treatment with fluids, rest and analgesia. - The patient should follow up in 3-5 days if symptoms persist or worsen - Call back if drooling, increased temperature, symptoms of dehydration and/or still sick in one week - RAPID STREP TEST B/O - GROUP A STREPTOCOCCUS BY PCR Miguelina Morales APRN.CNPEncounter Number: [id number] Status:Closed by MIGUELINA MORALES CNP on 05/23/17 Normal [facility] PROGRESSon 05-23-2017 PROGRESS HNO ID: [id number]: Miguelina (Renetta) MAXIMILIANO Morales.CNPService: (none)Author Type: Nurse PractitionerType: Progress NotesFiled: 05/23/2017 10:11 AMNote Text:SubjectiveHPIHPI Lasha Rosas is a 21 year old female who presents today for CC ofnasal congestion, sore throat. This started 5 days ago, sore throat haspersisted. Has tried otc medication with relief. Symptoms are worsened bynothing. Risk factors sick exposures at work. Uncertain of pregnancystatus, due for period soon..Patient presents with:Sore ThroatPAST MEDICAL HISTORYDiagnosis Date- AcnePAST SURGICAL HISTORYProcedure Laterality Date- KNEE SURGERY HX 03/2014 leftALLERGIES Review of patient's allergies indicates no known allergies.MEDICATIONSDro spirenone-Ethinyl Estradiol (DENISA, 28,) 3-0.03 mg per tablet Take 1tablet by mouth once daily. Active pills only, discard placebo pills.multivitamin tablet Take 1 tablet by mouth once daily.FAMILY HISTORYProblem Relation Age of Onset- None Mother- None Father- Cancer Maternal Grandfather- Cancer Paternal Grandmother LeukemiaSocial HistorySubstance Use Topics- Smoking status: Never Smoker- Smokeless tobacco: Never Used- Alcohol use NoReview of SystemsConstitutional: Negative for chills, fever and weight loss.HENT: Positive for congestion and sore throat. Negative for ear pain andnosebleeds.Respirator y: Negative for cough, shortness of breath and wheezing.Musculoskeletal : Negative for neck pain.Skin: Negative for itching and rash.ObjectiveBlood pressure 120/80, pulse 70, temperature 36.9 ?C (98.5 ?F),temperature source Left Tympanic, resp. rate 16, weight 82.6 kg (182 lb).Physical ExamConstitutional: She is oriented to person, place, and time andwell-developed, well-nourished, and in no distress. Non-toxic appearance.She does not have a sickly appearance. No distress.HENT:Head: Normocephalic and atraumatic.Right Ear: Hearing, tympanic membrane, external ear and ear canal normal.Left Ear: Hearing, tympanic membrane, external ear and ear canal normal.Nose: Nose normal.Mouth/Throat: Uvula is midline and mucous membranes are normal.Oropharyngeal exudate and posterior oropharyngeal erythema present. Noposterior oropharyngeal edema or tonsillar abscesses.Eyes: Conjunctivae and lids are normal. Pupils are equal, round, andreactive to light. Right eye exhibits no discharge. Left eye exhibits nodischarge. No scleral icterus.Neck: Trachea normal and normal range of motion. Neck supple.Cardiovascular: Normal rate, regular rhythm and normal heart sounds.Pulmonary/Chest: Effort normal and breath sounds normal.Lymphadenopathy: She has no cervical adenopathy.Neurological: She is alert and oriented to person, place, and time.Skin: No rash noted. She is not diaphoretic. ASSESSMENT/PLAN:1. Sore throat - ICD9: 462, ICD10: J02.9- suspect viral- Rapid Strep negative in the office today and Throat culture pending- Discussed supportive care treatment with fluids, rest and analgesia.- The patient should follow up in 3-5 days if symptoms persist or worsen- Call back if drooling, increased temperature, symptoms of dehydrationand/or still sick in one week- RAPID STREP TEST B/O- GROUP A STREPTOCOCCUS BY PCRPrescription instructions reviewed with patient as applicable. Patientadvised if symptoms do not improve or if symptoms worsen sooner, tocontact the office for further evaluation by their primary care physician. Potential red flag symptoms discussed with the patient. Reviewedappropriate action plan to take if red flag symptoms occur. Patientagreeable to treatment plan.Miguelina Morales APRN.ANGIOGRAPHY NURSE Normal [facility] Vital Signs Date Time Vital Sign Value Performing Clinician Trina amato 10-17-2022 08:34-0400 Body height 170.18 cm No Primary Care Physician [facility] 10-17-2022 08:26-0400 Body mass index (BMI) [Ratio] 33.5 kg/m2 No Primary Care Physician [facility] 10-17-2022 08:26-0400 Body weight 97.12 kg No Primary Care Physician [facility] 10-17-2022 08:26-0400 Diastolic blood pressure 74 mm[Hg] No Primary Care Physician [facility] 10-17-2022 08:26-0400 Systolic blood pressure 116 mm[Hg] No Primary Care Physician [facility] 10-05-2022 08:16-0400 Body temperature 96.3 [degF] No Primary Care Physician [facility] 10-05-2022 08:16-0400 Diastolic blood pressure 69 mm[Hg] No Primary Care Physician [facility] 10-05-2022 08:16-0400 Respiratory rate 16 /min No Primary Care Physician [facility] 10-05-2022 08:16-0400 SaO2% (BldA) [Mass fraction] 96 % No Primary Care Physician [facility] 10-05-2022 08:16-0400 Systolic blood pressure 126 mm[Hg] No Primary Care Physician [facility] 10-05-2022 01:13-0400 Heart rate 80 /min No Primary Care Physician [facility] 10-03-2022 05:42-0400 Body height 170.18 cm No Primary Care Physician [facility] 10-03-2022 05:42-0400 Body mass index (BMI) [Ratio] 37.8 kg/m2 No Primary Care Physician [facility] 10-03-2022 05:42-0400 Body weight 109.67 kg No Primary Care Physician [facility] 10-02-2022 08:21-0400 Body mass index (BMI) [Ratio] 37.4 kg/m2 No Primary Care Physician [facility] 10-02-2022 08:21-0400 Body weight 108.52 kg No Primary Care Physician [facility] 10-02-2022 08:21-0400 Diastolic blood pressure 74 mm[Hg] No Primary Care Physician [facility] 10-02-2022 08:21-0400 Systolic blood pressure 121 mm[Hg] No Primary Care Physician [facility] 09-25-2022 09:04-0400 Body mass index (BMI) [Ratio] 37.5 kg/m2 No Primary Care Physician [facility] 09-25-2022 09:04-0400 Body weight 108.63 kg No Primary Care Physician [facility] 09-25-2022 09:04-0400 Diastolic blood pressure 79 mm[Hg] No Primary Care Physician [facility] 09-25-2022 09:04-0400 Systolic blood pressure 118 mm[Hg] No Primary Care Physician [facility] 09-17-2022 16:15-0400 Body height 170.18 cm No Primary Care Physician [facility] 09-17-2022 16:13-0400 Body mass index (BMI) [Ratio] 37.5 kg/m2 No Primary Care Physician [facility] 09-17-2022 16:13-0400 Body weight 108.57 kg No Primary Care Physician [facility] 09-17-2022 16:13-0400 Diastolic blood pressure 76 mm[Hg] No Primary Care Physician [facility] 09-17-2022 16:13-0400 Systolic blood pressure 113 mm[Hg] No Primary Care Physician [facility] 09-10-2022 14:52-0400 Body height 170.18 cm No Primary Care Physician [facility] 09-10-2022 14:52-0400 Body mass index (BMI) [Ratio] 37.3 kg/m2 No Primary Care Physician [facility] 09-10-2022 14:52-0400 Body weight 107.95 kg No Primary Care Physician [facility] 09-10-2022 14:52-0400 Diastolic blood pressure 77 mm[Hg] No Primary Care Physician [facility] 09-10-2022 14:52-0400 Systolic blood pressure 120 mm[Hg] No Primary Care Physician [facility] 08-27-2022 08:09-0400 Body mass index (BMI) [Ratio] 37 kg/m2 No Primary Care Physician [facility] 08-27-2022 08:09-0400 Body weight 107.5 kg No Primary Care Physician [facility] 08-27-2022 08:09-0400 Diastolic blood pressure 76 mm[Hg] No Primary Care Physician [facility] 08-27-2022 08:09-0400 Systolic blood pressure 112 mm[Hg] No Primary Care Physician [facility] 08-15-2022 09:32-0400 Body height 170.18 cm No Primary Care Physician [facility] 08-15-2022 09:29-0400 Body mass index (BMI) [Ratio] 36.5 kg/m2 No Primary Care Physician [facility] 08-15-2022 09:29-0400 Body weight 105.68 kg No Primary Care Physician [facility] 08-15-2022 09:29-0400 Diastolic blood pressure 64 mm[Hg] No Primary Care Physician [facility] 08-15-2022 09:29-0400 Systolic blood pressure 117 mm[Hg] No Primary Care Physician [facility] 08-01-2022 08:22-0400 Body mass index (BMI) [Ratio] 36.3 kg/m2 No Primary Care Physician [facility] 08-01-2022 08:22-0400 Body weight 105.4 kg No Primary Care Physician [facility] 08-01-2022 08:22-0400 Diastolic blood pressure 74 mm[Hg] No Primary Care Physician [facility] 08-01-2022 08:22-0400 Systolic blood pressure 122 mm[Hg] No Primary Care Physician [facility] 07-16-2022 08:09-0400 Body height 170.18 cm No Primary Care Physician [facility] 07-16-2022 08:07-0400 Body mass index (BMI) [Ratio] 36.2 kg/m2 No Primary Care Physician [facility] 07-16-2022 08:07-0400 Body weight 104.89 kg No Primary Care Physician [facility] 07-16-2022 08:07-0400 Diastolic blood pressure 76 mm[Hg] No Primary Care Physician [facility] 07-16-2022 08:07-0400 Systolic blood pressure 116 mm[Hg] No Primary Care Physician [facility] 06-29-2022 08:51-0400 Body mass index (BMI) [Ratio] 35.2 kg/m2 No Primary Care Physician [facility] 06-29-2022 08:51-0400 Body weight 102.11 kg No Primary Care Physician [facility] 06-29-2022 08:51-0400 Diastolic blood pressure 75 mm[Hg] No Primary Care Physician [facility] 06-29-2022 08:51-0400 Systolic blood pressure 120 mm[Hg] No Primary Care Physician [facility] 05-28-2022 08:16-0400 Body mass index (BMI) [Ratio] 34.6 kg/m2 No Primary Care Physician [facility] 05-28-2022 08:16-0400 Body weight 100.3 kg No Primary Care Physician [facility] 05-28-2022 08:16-0400 Diastolic blood pressure 76 mm[Hg] No Primary Care Physician [facility] 05-28-2022 08:16-0400 Systolic blood pressure 112 mm[Hg] No Primary Care Physician [facility] 05-02-2022 08:06-0500 Body height 170.18 cm No Primary Care Physician [facility] 05-02-2022 08:04-0500 Body mass index (BMI) [Ratio] 33.4 kg/m2 No Primary Care Physician [facility] 05-02-2022 08:04-0500 Body weight 96.72 kg No Primary Care Physician [facility] 05-02-2022 08:04-0500 Diastolic blood pressure 75 mm[Hg] No Primary Care Physician [facility] 05-02-2022 08:04-0500 Systolic blood pressure 117 mm[Hg] No Primary Care Physician [facility] 04-06-2022 09:46-0500 Body height 170.18 cm No Primary Care Physician [facility] 04-06-2022 09:46-0500 Body mass index (BMI) [Ratio] 33.7 kg/m2 No Primary Care Physician [facility] 04-06-2022 09:46-0500 Body weight 97.63 kg No Primary Care Physician [facility] 04-06-2022 09:46-0500 Diastolic blood pressure 79 mm[Hg] No Primary Care Physician [facility] 04-06-2022 09:46-0500 Systolic blood pressure 120 mm[Hg] No Primary Care Physician [facility] 03-09-2022 11:02-0500 Body height 170.18 cm No Primary Care Physician [facility] 03-09-2022 11:01-0500 Body mass index (BMI) [Ratio] 32.8 kg/m2 No Primary Care Physician [facility] 03-09-2022 11:01-0500 Body weight 95.25 kg No Primary Care Physician [facility] 03-09-2022 11:01-0500 Diastolic blood pressure 81 mm[Hg] No Primary Care Physician [facility] 03-09-2022 11:01-050 Systolic blood pressure 123 mm[Hg] No Primary Care Physician [facility] Encounters Encounter Date Encounter Type Care Provider Facility Start: 12-17-2024 ambulatory Mya Garcia Facility :[facility] Start: [facility] Start: 10-17-2022 End: 10-17-2022 ambulatory No Primary Care Physician [facility] Work Phone: Start: 10-17-2022 End: 10-17-2022 Patient encounter procedure No Primary Care Physician [facility] Work Phone: Start: 10-17-2022 End: 10-17-2022 Patient encounter procedure No Primary Care Physician [facility] Work Phone: Start: 10-05-2022 Non-patient / Non-visit No Rufina alli Care Physician [facility] Start: 10-04-2022 Non-patient / Non-visit No Rufina alli Care Physician [facility] Start: 10-03-2022 Non-patient / Non-visit No Rufina alli Care Physician [facility] Start: 10-03-2022 End: 10-05-2022 Evaluation and management of inpatient No Primary Care Physician [facility] Work Phone: Start: 10-02-2022 End: 10-02-2022 Patient encounter procedure No Primary Care Physician [facility] Work Phone: Start: 09-25-2022 End: 09-25-2022 Patient encounter procedure No Primary Care Physician [facility] Work Phone: Start: 09-17-2022 End: 09-17-2022 ambulatory No Primary Care Physician [facility] Work Phone: Start: 09-17-2022 End: 09-17-2022 Patient encounter procedure No Primary Care Physician [facility] Work Phone: Start: 09-10-2022 End: 09-10-2022 ambulatory No Primary Care Physician [facility] Work Phone: Start: 09-10-2022 End: 09-10-2022 Patient encounter procedure No Primary Care Physician [facility] Work Phone: Start: 08-27-2022 End: 08-27-2022 Patient encounter procedure No Primary Care Physician [facility] Work Phone: Start: 08-15-2022 End: 08-15-2022 ambulatory No Primary Care Physician [facility] Work Phone: Start: 08-15-2022 End: 08-15-2022 Patient encounter procedure No Primary Care Physician [facility] Start: 08-01-2022 End: 08-01-2022 Patient encounter procedure No Primary Care Physician [facility] Start: 07-16-2022 End: 07-16-2022 Patient encounter procedure No Primary Care Physician [facility] Start: 07-11-2022 End: 07-11-2022 ambulatory No Primary Care Physician [facility] Work Phone: Start: 07-11-2022 End: 07-11-2022 Patient encounter procedure No Primary Care Physician [facility] Start: 06-29-2022 End: 06-29-2022 Patient encounter procedure No Primary Care Physician [facility] Start: 05-28-2022 End: 05-28-2022 Patient encounter procedure No Primary Care Physician [facility] Start: 05-23-2022 End: 05-23-2022 Patient encounter procedure No Primary Care Physician [facility] Ultrasound Start: 05-02-2022 End: 05-02-2022 ambulatory No Primary Care Physician [facility] Work Phone: Start: 05-02-2022 End: 05-02-2022 Patient encounter procedure No Primary Care Physician [facility] Start: 04-06-2022 End: 04-06-2022 Patient encounter procedure No Primary Care Physician [facility] Start: 04-06-2022 End: 04-06-2022 ambulatory No Primary Care Physician [facility] Work Phone: Start: 04-06-2022 End: 04-06-2022 Patient encounter procedure No Primary Care Physician [facility] Start: 03-09-2022 End: 03-09-2022 ambulatory No Primary Care Physician [facility] Work Phone: Start: 03-09-2022 End: 03-09-2022 Patient encounter procedure No Primary Care Physician [facility] Start: 03-09-2022 End: 03-09-2022 Patient encounter procedure No Primary Care Physician [facility] Start: 02-28-2022 End: 02-28-[address] [facility] Work Phone: Start: 02-28-2022 End: 02-28-2022 Patient encounter procedure [facility] Start: 05-23-2017 End: 05-24-2017 Ambulatory [facility] Procedures Date Procedure Procedure Detail Performing Clinician Start: 10-17-2022 Urine culture No Primary Care Physician Start: 09-17-2022 Group B Streptococcus Culture No Primary Care Physician Start: 05-23-2022 anatomy study No Primary Care Physician Start: 02-28-2022 Transvaginal obstetric ultrasonography H/O: section History of section Urine culture No Primary Car e Physician Plan of Treatment Date Care Activity Detail Author Start: 10-05-2022 Patient discharge [facility] Start: 10-04-2022 Application of abdom inal corset [facility] Start: 10-03-2022 Administration of medication [facility] Start: 10-03-2022 Ambulation therapy management [facility] Start: 10-03-2022 Application of device W [facility] Start: 10-03-2022 Application of inter mittent pneumatic compression device [facility] Start: 10-03-2022 Assessment of risk o f venous thromboembolism [facility] Start: 10-03-2022 Catheterization of vein [facility] Start: 10-03-2022 Deep breathing and c oughing exercises [facility] Start: 10-03-2022 Exercises [facility] Start: 10-03-2022 Measuring intake and output [facility] Start: 10-03-2022 End: 10-03-2022 Notification of physician [facility] Start: 10-03-2022 Procedure discontinued [facility] Start: 10-03-2022 Provision of activit y privileges [facility] Start: 10-03-2022 Vital signs measurements [facility] Start: 10-03-2022 Wound care [facility] Start: 10-03-2022 End: 10-03-[address] [facility] Start: 10-03-2022 Application of abdom inal corset [facility] Start: 10-03-2022 section Repeat C-Sect ion (Not Applicable) [facility] Start: 10-03-2022 Admission procedure [facility] CBC W Auto Different ial panel - Blood [facility] Drugs identified in Urine by Screen method [facility] anatomy study [facility] Glucose [Mass/volume ] in Serum or Plasma --1 hour post 50 g glucose PO [facility] Hepatitis B surface antigen measurement [facility] Hepatitis C antibody measurement [facility] HIV 1+2 Ab+HIV1 p24 Ag [Presence] in Serum or Plasma by Immunoassay [facility] Patient Education After a [facility] Work Phone: Patient referral [facility] Work Phone: Rubella IgG measurement [facility] Transvaginal obstetr ic ultrasonography [facility] Treponema sp Ab [Pre sence] in Serum [facility] Immunizations Immunization Date Immunization Notes Care Provider Fa cility 11-26-2019 tetanus toxoid, redu ashkan diphtheria toxoid, and acellular pertussis vaccine, adsorbed [facility] Payers Date Payer Category Payer Self-pay [id number] 2024 Unknown [id number] 1995 Unknown [id number] Unknown [id number] Social History Date Type Detail Facility Start: 02-19-2022 End: 10-17-2022 Tobacco smoking status NHIS Unknown if ever smoked [facility] Start: 1995 Sex Assigned At Female W [facility] Goals Date Patient Goal Desired Activity /State Mental Status Date Assessment Result Facility 10-05-2022 Cognitive function Level Of Cons ciousness Awake;Alert;Appropriate [facility] Work Phone: Clinical Notes 10-03-2022 to 10-05-2022 Note Date & Type Note Facility 10-05-2022 Progress note Note Date/Time October 05, 2022 8:3 2am [facility] Medical Records Department [address] [place] [id number] Progress Note - OBGYN 10/05/22830 MR#: [id number] Acct: [id number] Name: LASHA CARR Rep #:[id number] : 1995 27 From: Cher Smith CNM PCP: Care Physician,No Primary Status :ADM IN Location: DO358-9 Subjective Subjective Patient doing well without complaints. Tolerating PO. Ambulating and voiding without difficulty. Feeding well. Denies chest pain, shortness of breath, calf pain/swelling, fevers, chills, lightheadedness. Objective Data Objective Data Vital Signs: Vital Signs Temp Pulse Resp BP Pulse Ox O2 Del Method 96.3 F L 80 16 126/69 H 96 Room Air 10/05/22 08:16 10/05/22 01:13 10/05/22 08:16 10/05/22 08:16 10/05/22 08:16 10/05/22 08:16 Oxygen Delivery Method Room Air Weight: 241 lb 12.8 oz Body Mass Index (BMI) 37.8 Intake & Output: Intake and Output for Last 24 Hours 10/03/22 10/04/22 10/05/22 23:59 23:59 23:59 Intake Total 4010.0 / 4010.0 Output Total 2498 / 2498 1100 / 1100 Balance 1512.0 / 1512.0 -1100 / -1100 Lab / Micro Data 10/04/22 06:08 Physical Exam Const alert, oriented x3 and no apparent distress HEENT Head and Scalp: atraumatic Resp normal respiratory effort GI soft to palpation and non-tender Inspection: incision intact, healing well and drainage (none) Bimanual Exam - Vag & Uterus: uterus non-tender Uterus Palpation: uterus fundus firm (below Umbilicus) Assessment & Plan (1) delivery delivered: COMMENT: JV rpt cs girl PLAN: s/p LTCS PPD # 1. routine post care 2. breast feeding- support given 3. rh positive 4. rubella immune 5. d/c home today 10/05/22 0832 <Electronically signed by Cher Smith CNM> Cosigner Signature (if applicable): CC: ~ Signed [facility] Work Phone: 1(865) 887-857008-03-2023 Progress note Author Ilsa Figueroa [facility] October 04, 2022 8:33am Note Date/Time October 04, 2022 8:[address] [facility] Medical Records Department [address] [place] [address] Progress Note - OBGYN 10/04/22 0832 MR#: [id number] Acct: [id number] Name: LASHA CARR Rep #:[id number] : 1995 27 From: Ilsa de la rosa MD PCP: Care Physician,No Primary Status :ADM IN Location: LN306-9 Subjective Subjective Patient doing well without complaints. Tolerating PO. Ambulating and voiding without difficulty. infant feeding well. Denies chest pain, shortness of breath,calf pain/swelling, fevers, chills, lightheadedness. Objective Data Objective Data Vital Signs: Vital Signs Temp Pulse Resp BP Pulse Ox O2 Del Method 97.7 F L 71 16 100/51 L 98 Room Air 10/04/22 04:50 10/04/22 04:50 10/04/22 04:50 10/04/22 04:50 10/04/22 04:50 10/04/22 04:50 Oxygen Delivery Method Room Air Weight: 241 lb 12.8 oz Body Mass Index (BMI) 37.8 Intake & Output: Intake and Output for Last 24 Hours 10/02/22 10/03/22 10/04/22 23:59 23:59 23:59 Intake Total 4010.0 / 4010.0 Output Total 2498 / 2498 500 / 500 Balance 1512.0 / 1512.0 -500 / -500 Lab / Micro Data 10/04/22 06:08 Labs: Laboratory Results - last 24 hr 10/04/22 06:08: WBC 11.0, RBC 3.73 L, Hgb 11.3 L, Hct 34.3 L, MCV 92.0, MCH 30.3, MCHC 32.9, RDW Std Deviation 42.5, RDW Coeff of Rohan 12.8, Plt Count 105 L,MPV 9.7 ROS Constitutional Constitutional: Reports systems reviewed and no addt'l complaints, except as documented Cardiovascular Cardiovascular: Reports systems reviewed and no addt'l complaints, except as documented Respiratory/Chest Respiratory/Chest: Reports systems reviewed and no addt'l complaints, except as documented Gastrointestinal Gastrointestinal: Reports systems reviewed and no addt'l complaints, except as documented Physical Exam Const alert, oriented x3 and no apparent distress HEENT Head and Scalp: atraumatic Resp normal respiratory effort GI soft to palpation and non-tender Inspection: incision intact, healing well and drainage (none) Bimanual Exam - Vag & Uterus: uterus non-tender Uterus Palpation: uterus fundus firm (below Umbilicus) Assessment & Plan (1) delivery delivered: PLAN: Plan s/p LTCS PPD # 1 1. routine post care 2. breast feeding- support given 3. rh positive 4. rubella immune 10/04/22832 <Electronically signed by Ilsa Figueroa MD> Cosigner Signature (if applicable): CC: ~ Signed [facility] Work Phone: 1(295) 451-113108-02-2023 [facility] 03, 2022 7:25am Note Date/Time October 03, 2022 7:2 5am [facility] Medical Records Department [address] [place] [address] Instructions for Home/Discharge Instructions 10/03/22724 MR#: [id number] Acct: [id number] Name: LASHA CARR Rep #:[id number] : 1995 27 From: Gabby Hamilton DO PCP: Care Physician,No Primary Status :ADM IN Discharge Instructions Diet Discharge Diet: No restrictions Activity Discharge Activity: May Not Drive (for 2 weeks or while taking narcotic pain medications.), May Shower and May Take a Tub Bath (in 7 days.) May resume sexual activity in: 4-6 weeks Weight Bearing Status: Full weight bearing Lifting Restrictions: 20 pounds Dressing / Incision Call your doctor if your incision/area has: Continuous Slow Oozing, Sudden Increased Bleeding, Increased Pain/ Swelling, Increased Redness and Foul Smelling Discharge Call your doctor if you observe: Fever of 101 or Higher and Using more than 1 pad per hour Suture Line Care: Avoid Pulling/Pushing and Avoid Pinching/Bending Cleanse incision/area with: Soap & Water and Keep Dressing Clean & Dry Follow Up Care Please Follow Up With: Gabby Hamilton DO When: Call [phone] to make an appointment for an incision check in 1-2 weeks. Test Results: Test results from this visit will be discussed in further detail at your follow- up appointment, if applicable. Discharge Plan Admission Admit Date/Time: 10/03/22 05:40 Attending Provider: Gabby Hamilton Primary Care Provider: Sapphire Beyer Primary Discharge Orders/Prescriptions Prescriptions: No Action PNV-DHA 27 mg iron-1 mg -300 mg capsule 1 cap PO DAILY famotidine [Pepcid] 20 mg tablet 20 mg PO DAILY Qty: 30 6RF Referrals / Follow Up: Mi Willams,Sapphire Primary [Primary Care Provider] - 10/03/22724<Electronically signed by Gabby Hamilton DO>Gabby Hamilton DO CC: No Primary Care Physician ~ Signed [facility] Work Phone: 1(222) 578-113308-02-2023 History and physical note Author Gabby Camarena 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 Maternal Data Information SOPHIA Calculator Estimated Delivery Date Method Current WG Current Estimate 10/10/22 Ultrasound #1 39w 0d Other Estimates 10/17/22 LMP (Certain) 38w 0d PFSH PFSH Medical History Anxiety delivery delivered Hx of abnormal cervical Pap smear depression Home Medications famotidine 20 mg tablet (Pepcid) 20 mg PO DAILY reflux #30 tabs 02/13/22 [Rx Last Taken 10/02/22] multivitamin no.47-iron fum 27 mg-folate no.1 1 mg-dha 300 mg capsule (PNV-DHA)1 cap PO DAILY 02/19/22 [History Last Taken 10/02/22] Allergy/AdvReac Type Severity Reaction Status Date / Time No Known Allergies Allergy Verified 10/03/22 05:43 Surgical History H/O knee surgery Social History adopted: No household members: spouse and children housing: house number of children: 1 current occupational status: employed current occupation: [employer] pets and animals: Yes pets and animals: dog(s) history of recent travel: No sexually active: Yes Smoking Status: Never smoker alcohol intake: former details: pre substance use type: does not use well-balanced diet: daily or most days caffeine: Yes Type: coffee Number of servings: 2 eating out: 1-3 times/week during the past year weight has: decreased > 10 lbs what type of physical activity do you participate in: none val/confucianism: None seatbelt use: always do you feel safe at home: Yes additional social history: - [employer]- [employer] History 2 Elective abortions Hx Para 1 Spontaneous abortions Hx # Term Pregnancies 1 Ectopic pregnancies Hx # Pregnancies Multiple births # of living children 1 Past Pregnancies Del. Date Name GA/Weeks Outcome Route Bth Weight Infant Gen Labor Lgth Anesthesia Del Locatn Provider FOB 01/08/20 Miles 39 live - full term Male sp inal [facility] Demi Delivery Date: 01/08/20 Last Updated by: Damari Bliss PCD for breech Visit Details Expected Delivery Route/Plan RLTCS vs possible TOLAC if spontaneous labor 66% chance of success. Plans Covid status: discussed Flu vaccine:discussed Tdap vaccine: declines Rhogam: NA LARC form signed: completed Problem list reviewed and updated with the most current plan of care details andappropriate orders placed. Relevant counseling for the gestational age provided. Continue routine care and follow up unless otherwise noted in visit notes/problem list details OB Flowsheet Initial Weight: Not Recorded Date -?-?-?-?-?-?-?-?-?-?-?-?- EGA Weight BP Urine Prot -?-?-?-?-?-?-?-?-?-?-?-?- Glucose FHR FuHt Pres Dilation -?-?-?-?-?-?-?-?-?-?-?-?- Effaced St Visit Note 03/09/22 -?-?-?-?-?-?-?-?-?-?-?-?- 9w 2d 210 lb 123/81 -?-?-?-?-?-?-?-?-?-?-?-?- 185 -?-?-?-?-?-?-?-?-?-?-?-?- Sm- CRL 2.26cm N OT cons with LMP 04/06/22 -?-?-?-?-?-?-?-?-?-?-?-?- 13w 2d 215 lb 4 oz 120/79 Nega tive -?-?-?-?-?-?-?-?-?-?-?-?- Negative 157 -?-?-?-?-?-?-?-?-?-?-?-?- JV- no complaint s today. did early gct. bedside scan for heart tones today. she is almost 100% sure wants rpt section. 05/02/22 -?-?-?-?-?-?-?-?-?-?-?-?- 17w 0d 213 lb 4 oz 117/75 Nega tive -?-?-?-?-?-?-?-?-?-?-?-?- Negative 166 -?-?-?-?-?-?-?-?-?-?-?-?- JV- no lof ,vagi nal bleeding, or cramping. now sure wants rpt section. GTP, rpt plts today. 05/28/22 -?-?-?-?-?-?-?-?-?-?-?-?- 20w 5d 221 lb 2 oz 112/76 Nega tive -?-?-?-?-?-?-?-?-?-?-?-?- Negative 150 -?-?-?-?-?-?-?-?-?-?-?-?- SM- no vb lof go od fm no regular ctx reviewed labs 06/29/22 -?-?-?-?-?-?-?-?-?-?-?-?- 25w 2d 225 lb 2 oz 120/75 Nega tive -?-?-?-?-?-?-?-?-?-?-?-?- Negative 163 25 -?-?-?-?-?-?-?-?-?-?-?-?- JV- no lof, vagi nal bleeding, or dec fm. last plt level was 150. gct ordered. will rpt one more time and if normal no further rpts likely needed. 07/16/22 -?-?-?-?-?-?-?-?-?-?-?-?- 27w 5d 231 lb 4 oz 116/76 Nega tive -?-?-?-?-?-?-?-?-?-?-?-?- Negative 145 28 -?-?-?-?-?-?-?-?-?-?-?-?- Sm- no vb lof go od fm no regular ctx scheduled cs 08/01/22 -?-?-?-?-?-?-?-?-?-?-?-?- 30w 0d 232 lb 6 oz 122/74 Nega tive -?-?-?-?-?-?-?-?-?-?-?-?- Negative 147 30 -?-?-?-?-?-?-?-?-?-?-?-?- MH-No VB, LOF. G ood FM. Twisted ankle but did not fall on abdomen. Reassured. 08/15/22 -?-?-?-?-?-?-?-?-?-?-?-?- 32w 0d 233 lb 117/64 Negative -?-?-?-?-?-?-?-?-?-?-?-?- Negative 138 32 -?-?-?-?-?-?-?-?-?-?-?-?- LC- no vb/lof/ct x. good fm. no concerns. 08/27/22 -?-?-?-?-?-?-?-?-?-?-?-?- 33w 5d 237 lb 112/76 Negative -?-?-?-?-?-?-?-?-?-?-?-?- Negative 140 35 -?-?-?-?-?-?-?-?-?-?-?-?- Sm- no vb lof go od fm no regular ctx 09/17/22 -?-?-?-?-?-?-?-?-?-?-?-?- 36w 5d 239 lb 6 oz 113/76 Nega tive -?-?-?-?-?-?-?-?-?-?-?-?- Negative 140 37 Cephalic -?-?-?-?-?-?-?-?-?-?-?-?- SM- no vb lof go od fm no reuglar ctx, discussed platelets 09/25/22 -?-?-?-?-?-?-?-?-?-?-?-?- 37w 6d 239 lb 8 oz 118/79 Nega tive -?-?-?-?-?-?-?-?-?-?-?-?- Negative 130 40 Cephalic -?-?-?-?-?-?-?-?-?-?-?-?- KW-+fm. no lof/v b/ctx. RCS scheduled. no concerns today 10/02/22 -?-?-?-?-?-?-?-?-?-?-?-?- 38w 6d 239 lb 4 oz 121/74 Nega tive -?-?-?-?-?-?-?-?-?-?-?-?- Negative 147 39 -?-?-?-?-?-?-?-?-?-?-?-?- JV- no lof, vagi nal bleeding, or dec fm. consent for surgery signed today. rpt section tomorrow. ROS Constitutional Constitutional: Denies change in weight, fatigue, fever(s), headache(s), poor appetite or weakness Eyes Eyes: Denies blurry vision, change in vision, seeing flashes or spots in vision ENT HEENT: Denies dizziness, headache(s), loss taste/smell or sore throat Cardiovascular Cardiovascular: Denies chest pain, dizziness, dyspnea, irregular heart rhythm, leg edema, palpitations, rapid heart rate or vomiting Respiratory/Chest Respiratory/Chest: Denies chest tightness, cough, dyspnea or breast pain Gastrointestinal Gastrointestinal: Denies abdominal pain, anorexia, constipation, cramping, diarrhea, hemorrhoids, vomiting or weight changes Genitourinary Genitourinary: Denies dysuria, flank pain, genital lesions, genital pain, urinary frequency or urinary urgency Musculoskeletal Musculoskeletal: Denies back pain, difficulty walking, joint pain, limited rangeof motion, muscle cramps or numbness Integumentary Integumentary: Denies lesions or unusual bruising Neurologic Neurologic: Denies abnormal movements, abnormal speech, dizziness, numbness, seizure-like activity or syncope Psychiatric Psychiatric: Denies anxiety, behavioral changes, change in appetite, change in libido, cognitive impairment, confusion, depression, difficulty concentrating, hallucinations or suicidal thoughts Endocrine Endocrinology: Denies excessive sweating, polydipsia or polyuria Hematologic/Lymphatic Hematologic/Lymphatic: Denies easy bleeding, easy bruising or lymphadenopathy Allergic/Immunologic Allergic/Immunologic: Denies itchy eyes, lip swelling, seasonal rhinorrhea, rhinitis, throat swelling, tongue swelling, eczemia, wheezing or asthma Vital Signs Vital Signs Vital Signs: 10/03/22 05:49 10/03/22 05:49 10/03/22 05:49 Temperature Temperature Source Pulse Rate 110 H Respiratory Rate Blood Pressure 122/60 H Blood Pressure Mean BP Systolic 122 BP Diastolic 60 Blood Pressure Source Blood Pressure Position Blood Pressure Location Pulse Ox 96 Oxygen Delivery Method 10/03/22 05:49 10/03/22 07:20 Temperature 97.3 F L Temperature Source Temporal Pulse Rate 110 H 110 H Respiratory Rate 16 Blood Pressure 122/60 H Blood Pressure Mean 80 BP Systolic BP Diastolic Blood Pressure Source Monitor Blood Pressure Position Semi-Fowlers Blood Pressure Location Right Arm Pulse Ox 96 Oxygen Delivery Method Room Air Weight Weight: 241 lb 12.8 oz Body Mass Index (BMI) 37.8 Physical Exam Const alert, oriented x3, no apparent distress and healthy appearing General Appearance: cooperative; Negative for anxious HEENT normocephalic Face and Sinus: normal facial exam Eyes EOMs intact bilaterally and no scleral icterus General Eye: normal appearance of both eyes Neck full ROM and supple Lymph Lymphatic: no lymphadenopathy noted Chest Chest: abnormal inspection of the chest Resp normal respiratory effort Effort and Inspection: able to speak in complete sentences Cardio regular rate GI soft to palpation and non-tender Inspection: gravid Palpation: soft; Negative for tender Back/Spine no CVA tenderness Extremity normal to inspection, full ROM and no clubbing, cyanosis or edema General Extremity: Negative for calf tenderness or edema Skin Lesions: no lesions Rashes: no rashes Psych mental status grossly normal Labs Labs Labs: Blood Type A POSITIVE Antibody Screen NEGATIVE Hct 39.1 % (37-47) Hgb 13.0 g/dL (12.0-15.0) Obstetrics Syphilis Total Ab Non-reactive Rubella IgG Antibody Equiv (Nonreactive) Hep Bs Antigen Non-Reactive (Nonreactive) Chlamydia DNA (MARCOS) Negative (Negative) Neisseria gonorrhoeae DNA (MARCOS) Negative (Negative) HIV 1&2 Antibody Non-Reactive (Nonreactive) Glucose 1 Hr 50 gm 123 mg/dL (70-140) Rhogam given: No Miscellaneous Test Assessment & Plan (1) Thrombocytopenia: COMMENT: rpt cbc q month (2) Obesity affecting : COMMENT: 1 TM GCT encouraged healthy weight gain (3) History of section: COMMENT: 2020 consider tolac but likely RLTCS. RLTCS scheduled for 10/03 @ 7:10 with JV (4) Supervision of high risk , antepartum: COMMENT: PRR , SOPHIA 10/10/22 girl Nohemy Casiano, Kana (5) : QUALIFIERS: Weeks of gestation: 38 weeks Qualified Code(s): Z3A.38 - 38 weeks gestation of COMMENT: GBS neg, declined genetic & CARRIER testing. anatomy nl PLAN: Plan plan for a repeat section - ERAS protocol ordered 10/03/22722 <Electronically signed by Gabby Hamilton DO> Cosigner Signature (if applicable): CC: Dr. Gabby Hamilton DO; No Primary Care Physician~ Signed [facility] Work Phone: 1(998) 569-292208-02-2023 Procedure [facility] Evaluation noteNo assessment information availableMer[facility] Work Phone: evaluation note* Diagnosis Onset Date Resolution Status History of section acute acute Supervision of high risk , antepartum acute BMI 31.0-31.9,adult resolved Seasonal allergies resolved [facility] Work Phone: Evaluation note* Diagnosis Onset Date Resolution Status History of section acute acute Supervision of high risk , antepartum acute BMI 31.0-31.9,adult resolved Seasonal allergies resolved History of section acute Obesity affecting acute acute Supervision of high risk , antepartum acute [facility] Work Phone: evaluation note* Diagnosis Onset Date Resolution Status History of section acute acute Supervision of high risk , antepartum acute BMI 31.0-31.9,adult resolved Seasonal allergies resolved History of section acute Obesity affecting acute acute Supervision of high risk , antepartum acute History of section acute Low platelet count acute Obesity affecting acute acute Supervision of high risk , antepartum acute [facility] Work Phone: evaluation note* Diagnosis Onset Date Resolution Status History of section acute Obesity affecting acute acute Supervision of high risk , antepartum acute History of section acute Obesity affecting acute acute Supervision of high risk , antepartum acute Low platelet count resolved History of section acute Obesity affecting acute acute Supervision of high risk , antepartum acute History of section acute Obesity affecting acute acute Supervision of high risk , antepartum acute History of section acute Obesity affecting acute acute Supervision of high risk , antepartum acute Thrombocytopenia acute [facility] Work Phone: evaluation note* Diagnosis Onset Date Resolution Status History of section acute Obesity affecting acute acute Supervision of high risk , antepartum acute Low platelet count resolved History of section acute Obesity affecting acute acute Supervision of high risk , antepartum acute History of section acute Obesity affecting acute acute Supervision of high risk , antepartum acute History of section acute Obesity affecting acute acute Supervision of high risk , antepartum acute Thrombocytopenia acute History of section acute Obesity affecting acute acute Supervision of high risk , antepartum acute Thrombocytopenia acute History of section acute Obesity affecting acute acute Supervision of high risk , antepartum acute Thrombocytopenia acute [facility] Work Phone: evaluation note* Diagnosis Onset Date Resolution Status History of section acute Obesity affecting acute acute Supervision of high risk , antepartum acute History of section acute Obesity affecting acute acute Supervision of high risk , antepartum acute History of section acute Obesity affecting acute acute Supervision of high risk , antepartum acute Thrombocytopenia acute History of section acute Obesity affecting acute acute Supervision of high risk , antepartum acute Thrombocytopenia acute History of section acute Obesity affecting acute acute Supervision of high risk , antepartum acute Thrombocytopenia acute History of section acute Obesity affecting acute acute Supervision of high risk , antepartum acute Thrombocytopenia acute Decreased movements in third trimester acute [facility] Work Phone: Evaluation note* Diagnosis Onset Date Resolution Status History of section acute Obesity affecting acute acute Supervision of high risk , antepartum acute History of section acute Obesity affecting acute acute Supervision of high risk , antepartum acute History of section acute Obesity affecting acute acute Supervision of high risk , antepartum acute Thrombocytopenia acute History of section acute Obesity affecting acute acute Supervision of high risk , antepartum acute Thrombocytopenia acute History of section acute Obesity affecting acute acute Supervision of high risk , antepartum acute Thrombocytopenia acute History of section acute Obesity affecting acute acute Supervision of high risk , antepartum acute Thrombocytopenia acute Decreased movements in third trimester resolved History of section acute Obesity affecting acute acute Supervision of high risk , antepartum acute Thrombocytopenia acute [facility] Work Phone: Evaluation note* Diagnosis Onset Date Resolution Status Decreased movements in third trimester resolved delivery delivered acute [facility] Work Phone: Evaluation note* Diagnosis Onset Date Resolution Status Decreased movements in third trimester resolved delivery delivered acute delivery delivered acute Postop check noneactive Dysuria noneactive [facility] Work Phone: Summary Purpose Family History No Family History Records FoundNo Family History Records FoundNo Family History Records Found Advance Directives No Advanced Directives Records Found Advance Directive Response Recorded Date/ Time Living Will No January 07 9:56am Power of Certified Optician No January 08, 2020 9:56am Advance Directive Response Recorded Date/ Time Living Will No January 07 10:56am Power of Certified Optician No January 08, 2020 10:56am Advance Directive Response Recorded Date/ Time Living Will No October 03, 2022 5:59am Power of Certified Optician No October 03 5:59am Chief Complaint and Reason for Visit Chief Complaint VIABILITY Chief Complaint VIABILITY LMP 01/10/22 Reason for Visit History of section Supervision of high risk , antepartum BMI 31.0-31.9,adult Seasonal allergies Chief Complaint VIABILITY LMP 01/10/22 13 WK OB Reason for Visit History of section Supervision of high risk , antepartum BMI 31.0-31.9,adult Seasonal allergies History of section Obesity affecting Supervision of high risk , antepartum Chief Complaint VIABILITY LMP 01/10/22 13 WK OB 17 WK OB Reason for Visit History of section Supervision of high risk , antepartum BMI 31.0-31.9,adult Seasonal allergies History of section Obesity affecting Supervision of high risk , antepartum History of section Low platelet count Obesity affecting Supervision of high risk , antepartum Chief Complaint 13 WK OB 17 WK OB GROWTH 21 WK OB 25 WK OB E-ORDER 28 WK OB Reason for Visit History of section Obesity affecting Supervision of high risk , antepartum History of section Obesity affecting Supervision of high risk , antepartum Low platelet count History of section Obesity affecting Supervision of high risk , antepartum History of section Obesity affecting Supervision of high risk , antepartum History of section Obesity affecting Supervision of high risk , antepartum Thrombocytopenia Chief Complaint 17 WK OB GROWTH 21 WK OB 25 WK OB E-ORDER 28 WK OB 30 wk ob 32 wk ob Reason for Visit History of section Obesity affecting Supervision of high risk , antepartum Low platelet count History of section Obesity affecting Supervision of high risk , antepartum History of section Obesity affecting Supervision of high risk , antepartum History of section Obesity affecting Supervision of high risk , antepartum Thrombocytopenia History of section Obesity affecting Supervision of high risk , antepartum Thrombocytopenia History of section Obesity affecting Supervision of high risk , antepartum Thrombocytopenia Chief Complaint GROWTH 21 WK OB 25 WK OB E-ORDER 28 WK OB 30 wk ob 32 wk ob 34 wk ob NST/decreased movement Reason for Visit History of section Obesity affecting Supervision of high risk , antepartum History of section Obesity affecting Supervision of high risk , antepartum History of section Obesity affecting Supervision of high risk , antepartum Thrombocytopenia History of section Obesity affecting Supervision of high risk , antepartum Thrombocytopenia History of section Obesity affecting Supervision of high risk , antepartum Thrombocytopenia History of section Obesity affecting Supervision of high risk , antepartum Thrombocytopenia Decreased movements in third trimester Chief Complaint 21 WK OB 25 WK OB E-ORDER 28 WK OB 30 wk ob 32 wk ob 34 wk ob NST/decreased movement 37 WK OB Supervision of high risk , unspecified, u Reason for Visit History of section Obesity affecting Supervision of high risk , antepartum History of section Obesity affecting Supervision of high risk , antepartum History of section Obesity affecting Supervision of high risk , antepartum Thrombocytopenia History of section Obesity affecting Supervision of high risk , antepartum Thrombocytopenia History of section Obesity affecting Supervision of high risk , antepartum Thrombocytopenia History of section Obesity affecting Supervision of high risk , antepartum Thrombocytopenia Decreased movements in third trimester History of section Obesity affecting Supervision of high risk , antepartum Thrombocytopenia Chief Complaint 25 WK OB E-ORDER 28 WK OB 30 wk ob 32 wk ob 34 wk ob NST/decreased movement 37 WK OB Supervision of high risk , unspecified, u 38 WK OB 39 WK OB REPEAT C SECTION C SECTION REPEAT C SECTION REPEAT C SECTION Reason for Visit Decreased move ments in third trimester delivery delivered Chief Complaint 25 WK OB E-ORDER 28 WK OB 30 wk ob 32 wk ob 34 wk ob NST/decreased movement 37 WK OB Supervision of high risk , unspecified, u 38 WK OB 39 WK OB REPEAT C SECTION C SECTION REPEAT C SECTION REPEAT C SECTION 2 WK INCISION CHECK Reason for Visit Decreased move ments in third trimester delivery delivered delivery delivered Postop check Dysuria Additional Source Comments INFORMATION SOURCE (unrecogn ized section and content) DATE CREATED AUTHOR 08/23/2017 [facility] DATE CREATED AUTHOR AUTHOR'S ORGANIZ ATION 09/18/2023 [facility] DATE CREATED AUTHOR AUTHOR'S ORGANIZ ATION 12/12/[address] [facility] Goals (unrecognized section and content) Goals may be documented in a n alternate sectionGoals may be documented in an alternate sectionGoals may be documented in an alternate sectionGoals may be documented in an alternate sectionGoals may be documented in an alternate sectionGoals may be documented in an alternate sectionGoals may be documented in an alternate sectionGoals may be documented in an alternate section Care Teams (unrecognized sec tion and content) Team Status: Active Member Role Status Dates No Primary Care Physician Family Provider Active No Primary Care Physician Primary Care Provider Active Team Status: Inactive Member Role Status Dates No Primary Care Physician Primary Care Provider, Refer ring Provider Active Dr. Ilsa Figueroa MD Attending Provider Active Team Status: Inactive Member Role Status Dates No Primary Care Physician Primary Care Provider Active Yumiko Garvey M60A2 ARMOR CREWMAN, M60A2 ARMOR CREWMAN-C Attending Provider Active Team Status: Inactive Member Role Status Dates No Primary Care Physician Primary Care Provider Active Dr. Ilsa Figueroa MD Attending Provider, Referr ing Provider Active Team Status: Inactive Member Role Status Dates No Primary Care Physician Primary Care Provider, Refer ring Provider Active Dr. Gabby Hamilton DO Attending Provider Activ e Team Status: Inactive Member Role Status Dates No Primary Care Physician Primary Care Provider Active Dr. Gabby Hamilton DO Attending Provider, Refe rring Provider Active Team Status: Inactive Member Role Status Dates No Primary Care Physician Primary Care Provider Active Dr. Gabby Hamilton DO Attending Provider Activ e Team Status: Active Member Role Status Dates No Primary Care Physician Primary Care Provider Active Dr. Gabby Hamilton DO Attending Provider, Refe rring Provider Active Team Status: Inactive Member Role Status Dates No Primary Care Physician Primary Care Provider, Refer ring Provider Active Yumiko Garvey NP, M60A2 ARM[employer] CREWMAN-C Attending Provider Active Team Status: Inactive Member Role Status Dates No Primary Care Physician Primary Care Provider, Refer ring Provider Active Cher Smith CNM Attending Provider Active Team Status: Inactive Member Role Status Dates No Primary Care Physician Primary Care Provider, Refer ring Provider Active Hamida Ponce CNM Attending Provider Active Team Status: Active Member Role Status Dates No Primary Care Physician Primary Care Provider Active Dr. Gabby Hamilton DO Admit Prov ider, Attending Provider, Other Provider Active Team Status: Active Member Role Status Dates No Primary Care Physician Primary Care Provider Active Dr. Gabby Hamilton DO Admit Provider, Other Pr ovider Active Dr. Ilsa Figueroa MD Attending Provider Active Team Status: Active Member Role Status Dates No Primary Care Physician Primary Care Provider Active Dr. Gabby Hamilton DO Admit Provider, Other Pr ovider Active Cher Smith CNM Attending Provider Active Team Status: Inactive Member Role Status Dates No Primary Care Physician Primary Care Provider Active Dr. Gabby Hamilton DO Admit Provider, Attendin g Provider Active Team Status: Inactive Member Role Status Dates No Primary Care Physician Primary Care Provider Active Yumiko Garvey M60A2 [employer] CREWMAN, M60A2 ARM[employer] CREWMAN-C Attending Provider, Referring Provider Active FOR RECORDS PERTAINING TO PATIENTS WHO ARE OR HAVE BEEN ENROLLED IN A CHEMICAL DEPENDENCY/SUBSTANCEABUSE PROGRAM, SOME INFORMATION MAY BE OMITTED. This clinical summary was aggregated from multiple sources. Caution should be exercised in using it in the provision of clinical care. This summary normalizes information from multiple sources, and as a consequence, information in this document may materially change the coding, format and clinical context of patient data. In addition, data may be omitted in some cases. CLINICAL DECISIONS SHOULD BE BASED ON THE PRIMARY CLINICAL RECORDS. [facility] provides no warranty or guarantee of the accuracy or completeness of information in this document.
--- OUTSIDE RECORDS SUMMARY | 2024-12-17 17:07 | XMS RPT_ITS | CCD ---
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 Gabby Hmailton Attending Provider [phone] Care Physician, No [...] 2020 10:55am February 17, 2020 12:26pm Multivit 47-Jozq-Rcrpll 1-Dha (Pnv-Dha) 27 mg iron-1 mg -300 mg capsule (10 sources) Start: 02-19-2022 take 1 capsule by mouth once daily Multivit 68-Osjx-Rcalao 1-Dha (Pnv-Dha) 27 mg iron-1 mg -300 [...] Mixed Gram Pos & Gram Neg Org [facility] Laboratory - Chemistry and C hemistry - challengeon 10-17-2022 Bilirubin Ql (U) Negative [facility] Glucose Ql (U) Negative [facility] Ketones Ql (U) Negative [facility] pH (U) 5.0 [pH] [facility] Specific gravity (U) [Rel density] 1.010 [facility] Urobilinogen (U) [Mass/Vol] Negative [facility] Laboratory - Hematology and Cell countson 10-17-2022 Hemoglobin Ql (U) Negative [facility] Laboratory - Specimen inform ationon 10-17-2022 Clarity (U) Cloudy [facility] Color (U) YELLOW [facility] Laboratory - Urinalysison Nitrite Ql (U) Negative [facility] Protein Ql (U) Negative [facility] No Panel Informationon 10-17 Urine Leukocytes Positive [facility] Urine Non-Hemolyzed Blood Small [facility] Basophil percentageOrdered B y: Gabby Camarena on 10-04-2022 WBC (Bld) [#/Vol] 11.0 10*3/uL 4.4-11.0 [facility] Blood erythrocytes count (nu mber/volume)Ordered By: Gabby Camarena on 10-04-2022 RBC (Bld) [#/Vol] 3.73 10*6/uL 4.2-5.4 [facility] Blood hemoglobin measurement (mass/volume)Ordered By: Gabby Camarena on 10-04-2022 Hemoglobin (Bld) [Mass/Vol] 11.3 g/dL 12.0-15.0 [facility] Blood platelet mean volumeOr dered By: Gabby Camarena on 10-04-2022 Platelet mean volume (Bld) [Entitic vol] 9.7 fL 6.2-12.0 [facility] Determination of erythrocyte mean corpuscular volume (MCV)Ordered By: Gabby Camarena on 10-04-2022 MCV (RBC) [Entitic vol] 92.0 fL 81-99 [facility] Hematocrit Auto (Bld) [Volum e fraction]Ordered By: Gabby Camarena on 10-04-2022 Hematocrit (Bld) [Volume fraction] 34.3 % 37-47 [facility] Laboratory - Hematology and Cell countsOrdered By: Gabby Camarena on 10-04-2022 Erythrocyte distribution width (RBC) [Entitic vol] 42.5 fL 35.1-43.9 [facility] Erythrocyte distribution width (RBC) [Ratio] 12.8 % 11.6-14.6 [facility] MCH (RBC) [Entitic mass] 30.3 pg 27.0-32.0 [facility] MCHC Auto (RBC) [Mass/Vol]Or dered By: Gabby Camarena on 10-04-2022 MCHC (RBC) [Mass/Vol] 32.9 g/dL 32-36 [facility] Platelets bldOrdered By: Jinny Camarena on 10-04-2022 Platelets (Bld) [#/Vol] 105 10*3/uL 150-450 [facility] Absolute lymphocyte countOrd ered By: Gabby Camarena on 10-03-2022 Lymphocytes Auto (Unsp spec) [#/Vol] 1.12 10*3/uL 0.83-4.51 [facility] Basophil percentageOrdered B y: Gabby Camarena on 10-03-2022 Basophils/100 WBC (Bld) 0.5 % 0-1 [facility] Eosinophils/100 WBC (Bld) 1.0 % 0-5 [facility] Neutrophils (Bld) [#/Vol] 7.6 10*3/uL 2.0-7.7 [facility] Neutrophils/100 WBC (Bld) 80.0 % 47-70 [facility] Blood lymphocytes/100 leukoc ytesOrdered By: Gabby Camarena on 10-03-2022 Lymphocytes/100 WBC (Bld) 11.8 % 19-41 [facility] Blood monocytes/100 leukocyt esOrdered By: Gabby Camarena on 10-03-2022 Monocytes/100 WBC (Bld) 5.5 % 0-10 [facility] Laboratory - Hematology and Cell countsOrdered By: Gabby Camarena on 10-03-2022 Immature granulocytes/100 WBC (Bld) 1.200 % 0.0-0.9 [facility] Comment on above: IG% - Immature Granu locytes (promyelocytes, myelocytes and metamyelocytes) > 1% indicates that a LEFT SHIFT is Present. Nucleated RBC/100 WBC (Bld) [Ratio] 0 % 0-5 [facility] Serum Treponema species anti body detectionOrdered By: Gabby Camarena on 10-03-2022 Treponema sp Ab Ql (S) Non-Reactive [facility] Laboratory - Chemistry and C hemistry - challengeon 10-02-2022 Glucose Ql (U) Negative [facility] Laboratory - Urinalysison Protein Ql (U) Negative [facility] Laboratory - Chemistry and C hemistry - challengeon 09-25-2022 Glucose Ql (U) Negative [facility] Laboratory - Urinalysison Protein Ql (U) Negative [facility] Laboratory - Chemistry and C hemistry - challengeon 09-17-2022 Glucose Ql (U) Negative [facility] Laboratory - Urinalysison Protein Ql (U) Negative [facility] No Panel InformationOrdered By: Ilsa Figueroa on 09-17-2022 Group B Streptococcus Culture Group B Beta Streptococcus is not isolated. [facility] Absolute lymphocyte countOrd ered By: Gabby Camarena on 09-10-2022 Lymphocytes Auto (Unsp spec) [#/Vol] 1.33 10*3/uL 0.83-4.51 [facility] Basophil percentageOrdered B y: Gabby Camarena on 09-10-2022 Basophils/100 WBC (Bld) 0.6 % 0-1 [facility] Eosinophils/100 WBC (Bld) 0.8 % 0-5 [facility] Neutrophils (Bld) [#/Vol] 8.1 10*3/uL 2.0-7.7 [facility] Neutrophils/100 WBC (Bld) 76.7 % 47-70 [facility] WBC (Bld) [#/Vol] 10.5 10*3/uL 4.4-11.0 [facility] Blood erythrocytes count (nu mber/volume)Ordered By: Gabby Camarena on 09-10-2022 RBC (Bld) [#/Vol] 4.16 10*6/uL 4.2-5.4 [facility] Blood hemoglobin measurement (mass/volume)Ordered By: Gabby Camarena on 09-10-2022 Hemoglobin (Bld) [Mass/Vol] 12.8 g/dL 12.0-15.0 [facility] Blood lymphocytes/100 leukoc ytesOrdered By: Gabby Camarena on 09-10-2022 Lymphocytes/100 WBC (Bld) 12.7 % 19-41 [facility] Blood monocytes/100 leukocyt esOrdered By: Gabby Camarena on 09-10-2022 Monocytes/100 WBC (Bld) 7.1 % 0-10 [facility] Blood platelet mean volumeOr dered By: Gabby Camarena on 09-10-2022 Platelet mean volume (Bld) [Entitic vol] 9.6 fL 6.2-12.0 [facility] Determination of erythrocyte mean corpuscular volume (MCV)Ordered By: Gabby Camarena on 09-10-2022 MCV (RBC) [Entitic vol] 92.3 fL 81-99 [facility] Hematocrit Auto (Bld) [Volum e fraction]Ordered By: Gabby Camarena on 09-10-2022 Hematocrit (Bld) [Volume fraction] 38.4 % 37-47 [facility] Laboratory - Chemistry and C hemistry - challengeon 09-10-2022 Glucose Ql (U) Negative [facility] Laboratory - Hematology and Cell countsOrdered By: Gabby Camarena on 09-10-2022 Erythrocyte distribution width (RBC) [Entitic vol] 42.9 fL 35.1-43.9 [facility] Erythrocyte distribution width (RBC) [Ratio] 12.8 % 11.6-14.6 [facility] Immature granulocytes/100 WBC (Bld) 2.100 % 0.0-0.9 [facility] Comment on above: IG% - Immature Granu locytes (promyelocytes, myelocytes and metamyelocytes) > 1% indicates that a LEFT SHIFT is Present. MCH (RBC) [Entitic mass] 30.8 pg 27.0-32.0 [facility] Nucleated RBC/100 WBC (Bld) [Ratio] 0 % 0-5 [facility] Laboratory - Urinalysison Protein Ql (U) Negative [facility] MCHC Auto (RBC) [Mass/Vol]Or dered By: Gabby Camarena on 09-10-2022 MCHC (RBC) [Mass/Vol] 33.3 g/dL 32-36 [facility] Platelets bldOrdered By: Jinny Camarena on 09-10-2022 Platelets (Bld) [#/Vol] 112 10*3/uL 150-450 [facility] Laboratory - Chemistry and C hemistry - challengeon 08-27-2022 Glucose Ql (U) Negative [facility] Laboratory - Urinalysison Protein Ql (U) Negative [facility] Absolute lymphocyte countOrd ered By: Dr. Camarena on 08-15-2022 Lymphocytes Auto (Unsp spec) [#/Vol] 1.22 10*3/uL 0.83-4.51 [facility] Basophil percentageOrdered B y: Dr. Camarena on 08-15-2022 Basophils/100 WBC (Bld) 0.6 % 0-1 [facility] Eosinophils/100 WBC (Bld) 0.8 % 0-5 [facility] Neutrophils (Bld) [#/Vol] 9.7 10*3/uL 2.0-7.7 [facility] Neutrophils/100 WBC (Bld) 80.3 % 47-70 [facility] WBC (Bld) [#/Vol] 12.1 10*3/uL 4.4-11.0 [facility] Blood erythrocytes count (nu mber/volume)Ordered By: Dr. Camarena on 08-15-2022 RBC (Bld) [#/Vol] 4.32 10*6/uL 4.2-5.4 [facility] Blood hemoglobin measurement (mass/volume)Ordered By: Dr. Camarena on 08-15-2022 Hemoglobin (Bld) [Mass/Vol] 13.0 g/dL 12.0-15.0 [facility] Blood lymphocytes/100 leukoc ytesOrdered By: Dr. Camarena on 08-15-2022 Lymphocytes/100 WBC (Bld) 10.1 % 19-41 [facility] Blood monocytes/100 leukocyt esOrdered By: Dr. Camarena on 08-15-2022 Monocytes/100 WBC (Bld) 6.4 % 0-10 [facility] Blood platelet mean volumeOr dered By: Dr. Camarena on 08-15-2022 Platelet mean volume (Bld) [Entitic vol] 9.5 fL 6.2-12.0 [facility] Determination of erythrocyte mean corpuscular volume (MCV)Ordered By: Dr. Camarena on 08-15-2022 MCV (RBC) [Entitic vol] 92.8 fL 81-99 [facility] Hematocrit Auto (Bld) [Volum e fraction]Ordered By: Dr. Camarena on 08-15-2022 Hematocrit (Bld) [Volume fraction] 40.1 % 37-47 [facility] Laboratory - Chemistry and C hemistry - challengeon 08-15-2022 Glucose Ql (U) Negative [facility] Laboratory - Hematology and Cell countsOrdered By: Dr. Camarena on 08-15-2022 Erythrocyte distribution width (RBC) [Entitic vol] 43.2 fL 35.1-43.9 [facility] Erythrocyte distribution width (RBC) [Ratio] 12.8 % 11.6-14.6 [facility] Immature granulocytes/100 WBC (Bld) 1.800 % 0.0-0.9 [facility] Comment on above: IG% - Immature Granu locytes (promyelocytes, myelocytes and metamyelocytes) > 1% indicates that a LEFT SHIFT is Present. MCH (RBC) [Entitic mass] 30.1 pg 27.0-32.0 [facility] Nucleated RBC/100 WBC (Bld) [Ratio] 0 % 0-5 [facility] Laboratory - Urinalysison Protein Ql (U) Negative [facility] MCHC Auto (RBC) [Mass/Vol]Or dered By: Dr. Camarena on 08-15-2022 MCHC (RBC) [Mass/Vol] 32.4 g/dL 32-36 [facility] Platelets bldOrdered By: Dr. Camarena on 08-15-2022 Platelets (Bld) [#/Vol] 133 10*3/uL 150-450 [facility] Laboratory - Chemistry and C hemistry - challengeon 08-01-2022 Glucose Ql (U) Negative [facility] Laboratory - Urinalysison Protein Ql (U) Negative [facility] Absolute lymphocyte countOrd ered By: Dr. Camarena on 07-16-2022 Lymphocytes Auto (Unsp spec) [#/Vol] 1.42 10*3/uL 0.83-4.51 [facility] Basophil percentageOrdered B y: Dr. Camarena on 07-16-2022 Basophils/100 WBC (Bld) 0.5 % 0-1 [facility] Eosinophils/100 WBC (Bld) 0.9 % 0-5 [facility] Neutrophils (Bld) [#/Vol] 10.6 10*3/uL 2.0-7.7 [facility] Neutrophils/100 WBC (Bld) 80.6 % 47-70 [facility] WBC (Bld) [#/Vol] 13.2 10*3/uL 4.4-11.0 [facility] Blood erythrocytes count (nu mber/volume)Ordered By: Dr. Camarena on 07-16-2022 RBC (Bld) [#/Vol] 4.20 10*6/uL 4.2-5.4 [facility] Blood hemoglobin measurement (mass/volume)Ordered By: Dr. Camarena on 07-16-2022 Hemoglobin (Bld) [Mass/Vol] 12.8 g/dL 12.0-15.0 [facility] Blood lymphocytes/100 leukoc ytesOrdered By: Dr. Camarena on 07-16-2022 Lymphocytes/100 WBC (Bld) 10.8 % 19-41 [facility] Blood monocytes/100 leukocyt esOrdered By: Dr. Camarena on 07-16-2022 Monocytes/100 WBC (Bld) 5.5 % 0-10 [facility] Blood platelet mean volumeOr dered By: Dr. Camarena on 07-16-2022 Platelet mean volume (Bld) [Entitic vol] 9.4 fL 6.2-12.0 [facility] Determination of erythrocyte mean corpuscular volume (MCV)Ordered By: Dr. Camarena on 07-16-2022 MCV (RBC) [Entitic vol] 91.4 fL 81-99 [facility] Hematocrit Auto (Bld) [Volum e fraction]Ordered By: Dr. Camarena on 07-16-2022 Hematocrit (Bld) [Volume fraction] 38.4 % 37-47 [facility] Laboratory - Chemistry and C hemistry - challengeon 07-16-2022 Glucose Ql (U) Negative [facility] Laboratory - Hematology and Cell countsOrdered By: Dr. Camarena on 07-16-2022 Erythrocyte distribution width (RBC) [Entitic vol] 42.6 fL 35.1-43.9 [facility] Erythrocyte distribution width (RBC) [Ratio] 13.0 % 11.6-14.6 [facility] Immature granulocytes/100 WBC (Bld) 1.700 % 0.0-0.9 [facility] Comment on above: IG% - Immature Granu locytes (promyelocytes, myelocytes and metamyelocytes) > 1% indicates that a LEFT SHIFT is Present. MCH (RBC) [Entitic mass] 30.5 pg 27.0-32.0 [facility] Nucleated RBC/100 WBC (Bld) [Ratio] 0 % 0-5 [facility] Laboratory - Urinalysison Protein Ql (U) Negative [facility] MCHC Auto (RBC) [Mass/Vol]Or dered By: Dr. Camarena on 07-16-2022 MCHC (RBC) [Mass/Vol] 33.3 g/dL 32-36 [facility] Platelets bldOrdered By: Dr. Camarena on 07-16-2022 Platelets (Bld) [#/Vol] 128 10*3/uL 150-450 [facility] Absolute lymphocyte countOrd ered By: Dr. Camarena on 07-11-2022 Lymphocytes Auto (Unsp spec) [#/Vol] 1.86 10*3/uL 0.83-4.51 [facility] Basophil percentageOrdered B y: Dr. Camarena on 07-11-2022 Basophils/100 WBC (Bld) 0.5 % 0-1 [facility] Eosinophils/100 WBC (Bld) 1.0 % 0-5 [facility] Neutrophils (Bld) [#/Vol] 8.8 10*3/uL 2.0-7.7 [facility] Neutrophils/100 WBC (Bld) 74.5 % 47-70 [facility] WBC (Bld) [#/Vol] 11.8 10*3/uL 4.4-11.0 [facility] Blood erythrocytes count (nu mber/volume)Ordered By: Dr. Camarena on 07-11-2022 RBC (Bld) [#/Vol] 4.05 10*6/uL 4.2-5.4 [facility] Blood hemoglobin measurement (mass/volume)Ordered By: Dr. Camarena on 07-11-2022 Hemoglobin (Bld) [Mass/Vol] 12.1 g/dL 12.0-15.0 [facility] Blood lymphocytes/100 leukoc ytesOrdered By: Dr. Camarena on 07-11-2022 Lymphocytes/100 WBC (Bld) 15.7 % 19-41 [facility] Blood monocytes/100 leukocyt esOrdered By: Dr. Camarena on 07-11-2022 Monocytes/100 WBC (Bld) 6.4 % 0-10 [facility] Blood platelet mean volumeOr dered By: Dr. Camarena on 07-11-2022 Platelet mean volume (Bld) [Entitic vol] 9.5 fL 6.2-12.0 [facility] Determination of erythrocyte mean corpuscular volume (MCV)Ordered By: Dr. Camarena on 07-11-2022 MCV (RBC) [Entitic vol] 91.6 fL 81-99 [facility] Gestational diabetes screen 1-hour screen with 50g oral glucose loadOrdered By: Dr. Camarena on 07-11-2022 Glucose 1 Hr post 50 g glucose PO [Mass/Vol] 123 mg/dL 70-140 [facility] HIV 1 and HIV-2 antibody ass ay with HIV-1 p24 antigen detectionOrdered By: Dr. Camarena on 07-11-2022 HIV 1+2 Ab+HIV1 p24 Ag IA Ql Non-Reactive Nonreactive [facility] Hematocrit Auto (Bld) [Volum e fraction]Ordered By: Dr. Camarena on 07-11-2022 Hematocrit (Bld) [Volume fraction] 37.1 % 37-47 [facility] Laboratory - Hematology and Cell countsOrdered By: Dr. Camarena on 07-11-2022 Erythrocyte distribution width (RBC) [Entitic vol] 42.4 fL 35.1-43.9 [facility] Erythrocyte distribution width (RBC) [Ratio] 12.9 % 11.6-14.6 [facility] Immature granulocytes/100 WBC (Bld) 1.900 % 0.0-0.9 [facility] Comment on above: IG% - Immature Granu locytes (promyelocytes, myelocytes and metamyelocytes) > 1% indicates that a LEFT SHIFT is Present. MCH (RBC) [Entitic mass] 29.9 pg 27.0-32.0 [facility] Nucleated RBC/100 WBC (Bld) [Ratio] 0 % 0-5 [facility] MCHC Auto (RBC) [Mass/Vol]Or dered By: Dr. Camarena on 07-11-2022 MCHC (RBC) [Mass/Vol] 32.6 g/dL 32-36 [facility] Platelets bldOrdered By: Dr. Camarena on 07-11-2022 Platelets (Bld) [#/Vol] 128 10*3/uL 150-450 [facility] Serum Treponema species anti body detectionOrdered By: Dr. Camarena on 07-11-2022 Treponema sp Ab Ql (S) Non-Reactive [facility] Laboratory - Chemistry and C hemistry - challengeon 06-29-2022 Glucose Ql (U) Negative [facility] Laboratory - Urinalysison Protein Ql (U) Negative [facility] Laboratory - Chemistry and C hemistry - challengeon 05-28-2022 Glucose Ql (U) Negative [facility] Laboratory - Urinalysison Protein Ql (U) Negative [facility] Absolute lymphocyte countOrd ered By: Dr. Figueroa on 05-02-2022 Lymphocytes Auto (Unsp spec) [#/Vol] 1.58 10*3/uL 0.83-4.51 [facility] Basophil percentageOrdered B y: Dr. Figueroa on 05-02-2022 Basophils/100 WBC (Bld) 0.5 % 0-1 [facility] Eosinophils/100 WBC (Bld) 1.1 % 0-5 [facility] Neutrophils (Bld) [#/Vol] 6.6 10*3/uL 2.0-7.7 [facility] Neutrophils/100 WBC (Bld) 74.0 % 47-70 [facility] WBC (Bld) [#/Vol] 8.8 10*3/uL 4.4-11.0 [facility] Blood erythrocytes count (nu mber/volume)Ordered By: Dr. Figueroa on 05-02-2022 RBC (Bld) [#/Vol] 4.21 10*6/uL 4.2-5.4 [facility] Blood hemoglobin measurement (mass/volume)Ordered By: Dr. Figueroa on 05-02-2022 Hemoglobin (Bld) [Mass/Vol] 12.8 g/dL 12.0-15.0 [facility] Blood lymphocytes/100 leukoc ytesOrdered By: Dr. Figueroa on 05-02-2022 Lymphocytes/100 WBC (Bld) 17.9 % 19-41 [facility] Blood monocytes/100 leukocyt esOrdered By: Dr. Figueroa on 05-02-2022 Monocytes/100 WBC (Bld) 5.8 % 0-10 [facility] Blood platelet mean volumeOr dered By: Dr. Figueroa on 05-02-2022 Platelet mean volume (Bld) [Entitic vol] 9.2 fL 6.2-12.0 [facility] Determination of erythrocyte mean corpuscular volume (MCV)Ordered By: Dr. Figueroa on 05-02-2022 MCV (RBC) [Entitic vol] 88.1 fL 81-99 [facility] Hematocrit Auto (Bld) [Volum e fraction]Ordered By: Dr. Figueroa on 05-02-2022 Hematocrit (Bld) [Volume fraction] 37.1 % 37-47 [facility] Laboratory - Chemistry and C hemistry - challengeon 05-02-2022 Glucose Ql (U) Negative [facility] Laboratory - Hematology and Cell countsOrdered By: Dr. Figueroa on 05-02-2022 Erythrocyte distribution width (RBC) [Entitic vol] 40.1 fL 35.1-43.9 [facility] Erythrocyte distribution width (RBC) [Ratio] 12.4 % 11.6-14.6 [facility] Immature granulocytes/100 WBC (Bld) 0.700 % 0.0-0.9 [facility] Comment on above: IG% - Immature Granu locytes (promyelocytes, myelocytes and metamyelocytes) > 1% indicates that a LEFT SHIFT is Present. MCH (RBC) [Entitic mass] 30.4 pg 27.0-32.0 [facility] Nucleated RBC/100 WBC (Bld) [Ratio] 0 % 0-5 [facility] Laboratory - Urinalysison Protein Ql (U) Negative [facility] MCHC Auto (RBC) [Mass/Vol]Or dered By: Dr. Figueroa on 05-02-2022 MCHC (RBC) [Mass/Vol] 34.5 g/dL 32-36 [facility] Platelets bldOrdered By: Dr. Figueroa on 05-02-2022 Platelets (Bld) [#/Vol] 150 10*3/uL 150-450 [facility] Absolute lymphocyte countOrd ered By: Dr. Figueroa on 04-06-2022 Lymphocytes Auto (Unsp spec) [#/Vol] 1.09 10*3/uL 0.83-4.51 [facility] Basophil percentageOrdered B y: Dr. Figueroa on 04-06-2022 Basophils/100 WBC (Bld) 0.5 % 0-1 [facility] Eosinophils/100 WBC (Bld) 1.4 % 0-5 [facility] Neutrophils (Bld) [#/Vol] 6.7 10*3/uL 2.0-7.7 [facility] Neutrophils/100 WBC (Bld) 78.8 % 47-70 [facility] WBC (Bld) [#/Vol] 8.5 10*3/uL 4.4-11.0 [facility] Blood erythrocytes count (nu mber/volume)Ordered By: Dr. Figueroa on 04-06-2022 RBC (Bld) [#/Vol] 4.41 10*6/uL 4.2-5.4 [facility] Blood hemoglobin measurement (mass/volume)Ordered By: Dr. Figueroa on 04-06-2022 Hemoglobin (Bld) [Mass/Vol] 13.2 g/dL 12.0-15.0 [facility] Blood lymphocytes/100 leukoc ytesOrdered By: Dr. Figueroa on 04-06-2022 Lymphocytes/100 WBC (Bld) 12.8 % 19-41 [facility] Blood monocytes/100 leukocyt esOrdered By: Dr. Figueroa on 04-06-2022 Monocytes/100 WBC (Bld) 6.0 % 0-10 [facility] Blood platelet mean volumeOr dered By: Dr. Figueroa on 04-06-2022 Platelet mean volume (Bld) [Entitic vol] 9.3 fL 6.2-12.0 [facility] Determination of erythrocyte mean corpuscular volume (MCV)Ordered By: Dr. Figueroa on 04-06-2022 MCV (RBC) [Entitic vol] 87.8 fL 81-99 [facility] Gestational diabetes screen 1-hour screen with 50g oral glucose loadOrdered By: Dr. Figueroa on 04-06-2022 Glucose 1 Hr post 50 g glucose PO [Mass/Vol] 126 mg/dL 70-140 [facility] HIV 1 and HIV-2 antibody ass ay with HIV-1 p24 antigen detectionOrdered By: Dr. Figueroa on 04-06-2022 HIV 1+2 Ab+HIV1 p24 Ag IA Ql Non-Reactive Nonreactive [facility] Hematocrit Auto (Bld) [Volum e fraction]Ordered By: Dr. Figueroa on 04-06-2022 Hematocrit (Bld) [Volume fraction] 38.7 % 37-47 [facility] Laboratory - Chemistry and C hemistry - challengeon 04-06-2022 Glucose Ql (U) Negative [facility] Laboratory - Drug toxicology Ordered By: Dr. Figueroa on 04-06-2022 Amphetamines Ql (U) Negative <1000 ng/mL [facility] Benzodiazepines Ql (U) Negative < 200 ng/mL [facility] Cannabinoids Screen Ql (U) Negative < 50 ng/mL [facility] Cocaine Ql (U) Negative < 300 ng/mL [facility] Opiates Ql (U) Negative < 300 ng/mL [facility] Laboratory - Hematology and Cell countsOrdered By: Dr. Figueroa on 04-06-2022 Erythrocyte distribution width (RBC) [Entitic vol] 39.0 fL 35.1-43.9 [facility] Erythrocyte distribution width (RBC) [Ratio] 12.1 % 11.6-14.6 [facility] Immature granulocytes/100 WBC (Bld) 0.500 % 0.0-0.9 [facility] Comment on above: IG% - Immature Granu locytes (promyelocytes, myelocytes and metamyelocytes) > 1% indicates that a LEFT SHIFT is Present. MCH (RBC) [Entitic mass] 29.9 pg 27.0-32.0 [facility] Nucleated RBC/100 WBC (Bld) [Ratio] 0 % 0-5 [facility] Laboratory - Urinalysison Protein Ql (U) Negative [facility] MCHC Auto (RBC) [Mass/Vol]Or dered By: Dr. Figueroa on 04-06-2022 MCHC (RBC) [Mass/Vol] 34.1 g/dL 32-36 [facility] No Panel InformationOrdered By: Dr. Figueroa on 04-06-2022 Hepatitis B Surface Antigen Non-Reactive Nonreactive [facility] Hepatitis C Antibody Non-Reactive Nonreactive [facility] Comment on above: Non Reactive: < 0.8 Equivocal: >/= 0.8 to < 1.0 Reactive: >/= 1.0The CDC recommends that a reactive/equivocal HCV antibody result be followed up by the HCV Nucleic Acid Amplificationtest (695277) MDMA (Ecstasy) Screen Negative < 500 ng/mL [facility] Rubella IgG Antibody Equiv Nonreactive [facility] Comment on above: Antibody Results Int erpretation of Immune Status Non Reactive Presumed Non-Immune Equivocal Equivocal Reactive Presumed Immune Urine Barbiturates Screen Negative < 200 ng/mL [facility] Urine Drug Screen Comment [facility] Comment on above: CONFIRMATORY TESTING FOR ALL [...] Urine Methadone Screen Negative < 300 ng/mL [facility] Platelets bldOrdered By: Dr. Figueroa on 04-06-2022 Platelets (Bld) [#/Vol] 137 10*3/uL 150-450 [facility] Serum Treponema species anti body detectionOrdered By: Dr. Figueroa on 04-06-2022 Treponema sp Ab Ql (S) Non-Reactive [facility] Urine phencyclidine (PCP) de tectionOrdered By: Dr. Figueroa on 04-06-2022 Phencyclidine Ql (U) Negative < 25 ng/mL [facility] Culture, urineOrdered By: Dr Cynthia Figueroa on 03-11-2022 Bacteria identified Cx Nom (U) Culture exhibits no growth. [facility] Chlamydia trachomatis rRNA d etection by probe and target amplification methodOrdered By: Dr. Figueroa on 03-09-2022 C. trachomatis rRNA MARCOS+probe Ql (Unsp spec) Negative Negative [facility] Laboratory - Microbiology an d Antimicrobial susceptibilityOrdered By: Dr. Figueroa on 03-09-2022 N. gonorrhoeae DNA MARCOS+probe Ql (Unsp spec) Negative Negative [facility] Comment on above: Performed at: =G - L [address] [id number] Director: Sandra Vasquez MD, Phone: [phone] [facility] 05-29-2017 CNCO Letter [facility], [address] [address]Sriqt: [phone]: [phone] 2017RE: Lasha Rosas1817 [facility] [address] [place] [id number] Parent/Guardian of Lasha,We have tried to contact you in regards to your child'Brittany for Routine PhysicalOur efforts to reach you have been unsuccessful. Please call [phone] to coordinate your child's plan of care. Thank you and we lookforward to talking with you.Sincerely,[facility] Normal [facility] Group A Strep by PCRon 05-24 GAS Specimen Source Throat Swab Normal [facility] Comment on above: Performed By: #### G ASPCR ####[facility] [address] [place], [place] [phone] Group A Strep PCR Negative Normal [facility] Comment on above: Result Comment: This test was developed and its performance characteristics determined by [facility] [place] ([facility]).It has not been cleared or approved by the FDA. [facility] is regulated under CLIA as qualified to perform high-complexity testing. This test is used for clinical purposes. It should not be regarded as investigational or for research. Performed By: #### G ASPCR ####[facility] [place], [place] [phone] CNOVon 05-23-2017 CNOV Office Visit (UCWSTR) Arcenio ROSAS ([id number]) 1995 [facility] Time Provider Department05/23/17 9:15 AM MIGUELINA MORALES (RENETTA) [facility] During your visit today, we recorded the [...] Visit Diagnosis:Sore throat [J02.9]Order(s):RAPID STREP TEST B/O [2728521] Order #: [id number] GROUP A STREPTOCOCCUS BY PCR [SQGASPCR] Order #: [id number] as of 05/23/2017 Sig: DROSPIRENONE 3 MG-ETHINYL [...] STREPTOCOCCUS BY PCR Miguelina Morales APRN.CNPEncounter Number: [id number] Status:Closed by MIGUELINA MORALES CNP on 05/23/[address] [facility] PROGRESSon 05-23-2017 PROGRESS HNO ID: [id number]: Miguelina (Renetta) MAXIMILIANO Morales.CNPService: (none)Author Type: Nurse [...] symptoms occur. Patientagreeable to treatment plan.Miguelina Morales APRN.AIR BRAKE MECHANIC Normal [facility] Vital Signs Date Time Vital Sign Value Performing Clinician Trina amato 10-17-2022 08:34-0400 Body height 170.18 cm No Primary Care Physician [facility] 10-17-2022 08:26-0400 Body mass index (BMI) [Ratio] 33.5 kg/m2 No Primary Care Physician [facility] 10-17-2022 08:26-0400 Body weight 97.12 kg No Primary Care Physician [facility] 10-17-2022 08:26-0400 Diastolic blood pressure 74 mm[Hg] No Primary Care Physician [facility] 10-17-2022 08:26-0400 Systolic blood pressure 116 mm[Hg] No Primary Care Physician [facility] 10-05-2022 08:16-0400 Body temperature 96.3 [degF] No Primary Care Physician [facility] 10-05-2022 08:16-0400 Diastolic blood pressure 69 mm[Hg] No Primary Care Physician [facility] 10-05-2022 08:16-0400 Respiratory rate 16 /min No Primary Care Physician [facility] 10-05-2022 08:16-0400 SaO2% (BldA) [Mass fraction] 96 % No Primary Care Physician [facility] 10-05-2022 08:16-0400 Systolic blood pressure 126 mm[Hg] No Primary Care Physician [facility] 10-05-2022 01:13-0400 Heart rate 80 /min No Primary Care Physician [facility] 10-03-2022 05:42-0400 Body height 170.18 cm No Primary Care Physician [facility] 10-03-2022 05:42-0400 Body mass index (BMI) [Ratio] 37.8 kg/m2 No Primary Care Physician [facility] 10-03-2022 05:42-0400 Body weight 109.67 kg No Primary Care Physician [facility] 10-02-2022 08:21-0400 Body mass index (BMI) [Ratio] 37.4 kg/m2 No Primary Care Physician [facility] 10-02-2022 08:21-0400 Body weight 108.52 kg No Primary Care Physician [facility] 10-02-2022 08:21-0400 Diastolic blood pressure 74 mm[Hg] No Primary Care Physician [facility] 10-02-2022 08:21-0400 Systolic blood pressure 121 mm[Hg] No Primary Care Physician [facility] 09-25-2022 09:04-0400 Body mass index (BMI) [Ratio] 37.5 kg/m2 No Primary Care Physician [facility] 09-25-2022 09:04-0400 Body weight 108.63 kg No Primary Care Physician [facility] 09-25-2022 09:04-0400 Diastolic blood pressure 79 mm[Hg] No Primary Care Physician [facility] 09-25-2022 09:04-0400 Systolic blood pressure 118 mm[Hg] No Primary Care Physician [facility] 09-17-2022 16:15-0400 Body height 170.18 cm No Primary Care Physician [facility] 09-17-2022 16:13-0400 Body mass index (BMI) [Ratio] 37.5 kg/m2 No Primary Care Physician [facility] 09-17-2022 16:13-0400 Body weight 108.57 kg No Primary Care Physician [facility] 09-17-2022 16:13-0400 Diastolic blood pressure 76 mm[Hg] No Primary Care Physician [facility] 09-17-2022 16:13-0400 Systolic blood pressure 113 mm[Hg] No Primary Care Physician [facility] 09-10-2022 14:52-0400 Body height 170.18 cm No Primary Care Physician [facility] 09-10-2022 14:52-0400 Body mass index (BMI) [Ratio] 37.3 kg/m2 No Primary Care Physician [facility] 09-10-2022 14:52-0400 Body weight 107.95 kg No Primary Care Physician [facility] 09-10-2022 14:52-0400 Diastolic blood pressure 77 mm[Hg] No Primary Care Physician [facility] 09-10-2022 14:52-0400 Systolic blood pressure 120 mm[Hg] No Primary Care Physician [facility] 08-27-2022 08:09-0400 Body mass index (BMI) [Ratio] 37 kg/m2 No Primary Care Physician [facility] 08-27-2022 08:09-0400 Body weight 107.5 kg No Primary Care Physician [facility] 08-27-2022 08:09-0400 Diastolic blood pressure 76 mm[Hg] No Primary Care Physician [facility] 08-27-2022 08:09-0400 Systolic blood pressure 112 mm[Hg] No Primary Care Physician [facility] 08-15-2022 09:32-0400 Body height 170.18 cm No Primary Care Physician [facility] 08-15-2022 09:29-0400 Body mass index (BMI) [Ratio] 36.5 kg/m2 No Primary Care Physician [facility] 08-15-2022 09:29-0400 Body weight 105.68 kg No Primary Care Physician [facility] 08-15-2022 09:29-0400 Diastolic blood pressure 64 mm[Hg] No Primary Care Physician [facility] 08-15-2022 09:29-0400 Systolic blood pressure 117 mm[Hg] No Primary Care Physician [facility] 08-01-2022 08:22-0400 Body mass index (BMI) [Ratio] 36.3 kg/m2 No Primary Care Physician [facility] 08-01-2022 08:22-0400 Body weight 105.4 kg No Primary Care Physician [facility] 08-01-2022 08:22-0400 Diastolic blood pressure 74 mm[Hg] No Primary Care Physician [facility] 08-01-2022 08:22-0400 Systolic blood pressure 122 mm[Hg] No Primary Care Physician [facility] 07-16-2022 08:09-0400 Body height 170.18 cm No Primary Care Physician [facility] 07-16-2022 08:07-0400 Body mass index (BMI) [Ratio] 36.2 kg/m2 No Primary Care Physician [facility] 07-16-2022 08:07-0400 Body weight 104.89 kg No Primary Care Physician [facility] 07-16-2022 08:07-0400 Diastolic blood pressure 76 mm[Hg] No Primary Care Physician [facility] 07-16-2022 08:07-0400 Systolic blood pressure 116 mm[Hg] No Primary Care Physician [facility] 06-29-2022 08:51-0400 Body mass index (BMI) [Ratio] 35.2 kg/m2 No Primary Care Physician [facility] 06-29-2022 08:51-0400 Body weight 102.11 kg No Primary Care Physician [facility] 06-29-2022 08:51-0400 Diastolic blood pressure 75 mm[Hg] No Primary Care Physician [facility] 06-29-2022 08:51-0400 Systolic blood pressure 120 mm[Hg] No Primary Care Physician [facility] 05-28-2022 08:16-0400 Body mass index (BMI) [Ratio] 34.6 kg/m2 No Primary Care Physician [facility] 05-28-2022 08:16-0400 Body weight 100.3 kg No Primary Care Physician [facility] 05-28-2022 08:16-0400 Diastolic blood pressure 76 mm[Hg] No Primary Care Physician [facility] 05-28-2022 08:16-0400 Systolic blood pressure 112 mm[Hg] No Primary Care Physician [facility] 05-02-2022 08:06-0500 Body height 170.18 cm No Primary Care Physician [facility] 05-02-2022 08:04-0500 Body mass index (BMI) [Ratio] 33.4 kg/m2 No Primary Care Physician [facility] 05-02-2022 08:04-0500 Body weight 96.72 kg No Primary Care Physician [facility] 05-02-2022 08:04-0500 Diastolic blood pressure 75 mm[Hg] No Primary Care Physician [facility] 05-02-2022 08:04-0500 Systolic blood pressure 117 mm[Hg] No Primary Care Physician [facility] 04-06-2022 09:46-0500 Body height 170.18 cm No Primary Care Physician [facility] 04-06-2022 09:46-0500 Body mass index (BMI) [Ratio] 33.7 kg/m2 No Primary Care Physician [facility] 04-06-2022 09:46-0500 Body weight 97.63 kg No Primary Care Physician [facility] 04-06-2022 09:46-0500 Diastolic blood pressure 79 mm[Hg] No Primary Care Physician [facility] 04-06-2022 09:46-0500 Systolic blood pressure 120 mm[Hg] No Primary Care Physician [facility] 03-09-2022 11:02-0500 Body height 170.18 cm No Primary Care Physician [facility] 03-09-2022 11:01-0500 Body mass index (BMI) [Ratio] 32.8 kg/m2 No Primary Care Physician [facility] 03-09-2022 11:01-0500 Body weight 95.25 kg No Primary Care Physician [facility] 03-09-2022 11:01-0500 Diastolic blood pressure 81 mm[Hg] No Primary Care Physician [facility] 03-09-2022 11:01-050 Systolic blood pressure 123 mm[Hg] No Primary Care Physician [facility] Encounters Encounter Date Encounter Type Care Provider Facility Start: 12-17-2024 ambulatory Mya Garcia Facility :[facility] Start: [facility] Start: 10-17-2022 End: 10-17-2022 ambulatory No Primary Care Physician [facility] Work Phone: Start: 10-17-2022 End: 10-17-2022 Patient encounter procedure No Primary Care Physician [facility]Labor[facility] Specimen Work Phone: Start: 10-17-2022 End: 10-17-2022 Patient encounter procedure No Primary Care Physician [facility] Work Phone: Start: 10-05-2022 Non-patient / Non-visit No Rufina alli Care Physician [facility] Start: 10-04-2022 Non-patient / Non-visit No Rufina alli Care Physician [facility] Start: 10-03-2022 Non-patient / Non-visit No Rufina alli Care Physician [facility] Start: 10-03-2022 End: 10-05-2022 Evaluation and management of inpatient No Primary Care Physician [facility] Work Phone: Start: 10-02-2022 End: 10-02-2022 Patient encounter procedure No Primary Care Physician [facility] Work Phone: Start: 09-25-2022 End: 09-25-2022 Patient encounter procedure No Primary Care Physician [facility] Work Phone: Start: 09-17-2022 End: 09-17-2022 ambulatory No Primary Care Physician [facility] Work Phone: Start: 09-17-2022 End: 09-17-2022 Patient encounter procedure No Primary Care Physician [facility] Work Phone: Start: 09-10-2022 End: 09-10-2022 ambulatory No Primary Care Physician [facility] Work Phone: Start: 09-10-2022 End: 09-10-2022 Patient encounter procedure No Primary Care Physician [facility] Work Phone: Start: 08-27-2022 End: 08-27-2022 Patient encounter procedure No Primary Care Physician [facility] Work Phone: Start: 08-15-2022 End: 08-15-2022 ambulatory No Primary Care Physician [facility] Work Phone: Start: 08-15-2022 End: 08-15-2022 Patient encounter procedure No Primary Care Physician [facility] Start: 08-01-2022 End: 08-01-2022 Patient encounter procedure No Primary Care Physician [facility] Start: 07-16-2022 End: 07-16-2022 Patient encounter procedure No Primary Care Physician [facility] Start: 07-11-2022 End: 07-11-2022 ambulatory No Primary Care Physician [facility] Work Phone: Start: 07-11-2022 End: 07-11-2022 Patient encounter procedure No Primary Care Physician [facility] Start: 06-29-2022 End: 06-29-2022 Patient encounter procedure No Primary Care Physician [facility] Start: 05-28-2022 End: 05-28-2022 Patient encounter procedure No Primary Care Physician [facility] Start: 05-23-2022 End: 05-23-2022 Patient encounter procedure No Primary Care Physician [facility] Ultrasound Start: 05-02-2022 End: 05-02-2022 ambulatory No Primary Care Physician [facility] Work Phone: Start: 05-02-2022 End: 05-02-2022 Patient encounter procedure No Primary Care Physician [facility] Start: 04-06-2022 End: 04-06-2022 Patient encounter procedure No Primary Care Physician [facility] Start: 04-06-2022 End: 04-06-2022 ambulatory No Primary Care Physician [facility] Work Phone: Start: 04-06-2022 End: 04-06-2022 Patient encounter procedure No Primary Care Physician [facility] Start: 03-09-2022 End: 03-09-2022 ambulatory No Primary Care Physician [facility] Work Phone: Start: 03-09-2022 End: 03-09-2022 Patient encounter procedure No Primary Care Physician [facility] Specimen Start: 03-09-2022 End: 03-09-2022 Patient encounter procedure No Primary Care Physician [facility] Start: 02-28-2022 End: 02-28-2022 ambulatory [facility] Work Phone: Start: 02-28-2022 End: 02-28-2022 Patient encounter procedure [facility], [facility] Start: 05-23-2017 End: 05-24-2017 Ambulatory [facility] Procedures Date Procedure Procedure Detail Performing Clinician Start: 10-17-2022 Urine culture No Primary Care Physician Start: 09-17-2022 Group B Streptococcus Culture No Primary Care Physician Start: 05-23-2022 anatomy study No Primary Care Physician Start: 02-28-2022 Transvaginal obstetric ultrasonography H/O: section History of section Urine culture No Primary Car e Physician Plan of Treatment Date Care Activity Detail Author Start: 10-05-2022 Patient discharge [facility] Start: 10-04-2022 Application of abdom inal corset [facility] Start: 10-03-2022 Administration of medication [facility] Start: 10-03-2022 Ambulation therapy management [facility] Start: 10-03-2022 Application of device [facility] Start: 10-03-2022 Application of inter mittent pneumatic compression device [facility] Start: 10-03-2022 Assessment of risk o f venous thromboembolism [facility] Start: 10-03-2022 Catheterization of vein [facility] Start: 10-03-2022 Deep breathing and c oughing exercises [facility] Start: 10-03-2022 Exercises [facility] Start: 10-03-2022 Measuring intake and output [facility] Start: 10-03-2022 End: 10-03-2022 Notification of physician [facility] Start: 10-03-2022 Procedure discontinued [facility] Start: 10-03-2022 Provision of activit y privileges [facility] Start: 10-03-2022 Vital signs measurements [facility] Start: 10-03-2022 Wound care [facility] Start: 10-03-2022 End: 10-03-2022 [facility] Start: 10-03-2022 Application of abdom inal corset [facility] Start: 10-03-2022 section Repeat C-Sect ion (Not Applicable) [facility] Start: 10-03-2022 Admission procedure [facility] CBC W Auto Different ial panel - Blood [facility] Drugs identified in Urine by Screen method [facility] anatomy study [facility] Glucose [Mass/volume ] in Serum or Plasma --1 hour post 50 g glucose PO [facility] Hepatitis B surface antigen measurement [facility] Hepatitis C antibody measurement [facility] HIV 1+2 Ab+HIV1 p24 Ag [Presence] in Serum or Plasma by Immunoassay [facility] Patient Education After a [facility] Work Phone: Patient referral [facility] Work Phone: Rubella IgG measurement [facility] Transvaginal obstetr ic ultrasonography [facility] Treponema sp Ab [Pre sence] in Serum [facility] Immunizations Immunization Date Immunization Notes Care Provider Fa cility 11-26-2019 tetanus toxoid, redu ashkan diphtheria toxoid, and acellular pertussis vaccine, adsorbed [facility] Payers Date Payer Category Payer Self-pay [id number] 2024 Unknown [id number] 1995 Unknown [id number] Unknown [id number] Social History Date Type Detail Facility Start: 02-19-2022 End: 10-17-2022 Tobacco smoking status NHIS Unknown if ever smoked [facility] Start: 1995 Sex Assigned At Female W [facility] Goals Date Patient Goal Desired Activity /State Mental Status Date Assessment Result Facility 10-05-2022 Cognitive function Level Of Cons ciousness Awake;Alert;Appropriate [facility] Work Phone: Clinical Notes 10-03-2022 to 10-05-2022 Note Date & Type Note Facility 10-05-2022 Progress note Note Date/Time October 05, 2022 8:3 2am [facility] Medical Records Department [address] [place] [id number] Progress Note - OBGYN 10/05/22830 MR#: [id number] Acct: [id number] Name: LASHA CARR Rep #:[id number] : 1995 27 From: Cher Smith CNM PCP: Care Physician,No Primary Status :ADM IN Location: MI374-2 Subjective Subjective Patient doing well without complaints. [...] Cosigner Signature (if applicable): CC: ~ Signed [facility] Work Phone: 1(776) 205-412108-03-2023 Progress note Author Ilsa Figueroa [facility] October 04, 2022 8:33am Note Date/Time October 04, 2022 8:3 3am [facility] Medical Records Department [address] [place] [address] Progress Note - OBGYN 10/04/22 0832 MR#: [id number] Acct: [id number] Name: LASHA CARR Rep #:[id number] : 1995 27 From: Ilsa de la rosa MD PCP: Care Physician,No Primary Status :ADM IN Location: [id number] Subjective Subjective Patient doing well without complaints. [...] Cosigner Signature (if applicable): CC: ~ Signed [facility] Work Phone: 1(488) 958-291208-02-2023 Discharge summary Author [facility] October 03, 2022 7:25am Note Date/Time October 03, 2022 7:2 5am [facility] Medical Records Department [address] [place] [address] Instructions for Home/Discharge Instructions 10/03/22724 MR#: [id number] Acct: [id number] Name: LASHA CARR Rep #:[id number] : [...] Up With: Gabby Hamilton DO When: Call [phone] to make an appointment for an incision [...] CC: No Primary Care Physician ~ Signed [facility] Work Phone: 1(198) 303-183808-02-2023 History and physical note Author Gabby Camarena [facility] October 03, 2022 7:23am Note Date/Time October 03, 2022 7:2 3am [facility] Medical Records Department [address] [place] [address] 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 10/03/22720 MR#: [id number] Acct: [id number] Name: LASHA CARR Rep #:[id number] : 1995 27 From: Gabby Hamilton DO PCP: Care Physician,No Primary Status :ADM IN Location: [id number] HPI - General General Date of Admission: [...] 1 current occupational status: employed 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 Date Name GA/Weeks Outcome Route Bth Weight Infant Gen Labor Lgth Anesthesia Del Locatn Provider FOB 01/08/20 Miles 39 live - full term Male sp inal [facility] Demi Delivery Date: 01/08/20 Last Updated [...] DNA (MARCOS) Negative (Negative) Neisseria gonorrhoeae DNA (MAROCS) Negative (Negative) HIV 1&2 Antibody Non-Reactive (Nonreactive) [...] Hamilton DO; No Primary Care Physician~ Signed [facility] Work Phone: 1(397) 343-954608-02-2023 Procedure [facility] Evaluation noteNo assessment information available[facility] [place] [facility] Work Phone: evaluation note* Diagnosis Onset Date Resolution Status History of section acute acute Supervision of high risk , antepartum acute BMI 31.0-31.9,adult resolved Seasonal allergies resolved [facility] Work Phone: Evaluation note* Diagnosis Onset Date Resolution Status History of section acute acute Supervision of high risk , antepartum acute BMI 31.0-31.9,adult resolved Seasonal allergies resolved History of section acute Obesity affecting acute acute Supervision of high risk , antepartum acute [facility] Work Phone: evaluation note* Diagnosis Onset Date Resolution Status History of section acute acute Supervision of high risk , antepartum acute BMI 31.0-31.9,adult resolved Seasonal allergies resolved History of section acute Obesity affecting acute acute Supervision of high risk , antepartum acute History of section acute Low platelet count acute Obesity affecting acute acute Supervision of high risk , antepartum acute [facility] Work Phone: evaluation note* Diagnosis Onset Date [...] high risk , antepartum acute Thrombocytopenia acute [facility] Work Phone: evaluation note* Diagnosis Onset Date [...] high risk , antepartum acute Thrombocytopenia acute [facility] Work Phone: evaluation note* Diagnosis Onset Date [...] acute Decreased movements in third trimester acute [facility] Work Phone: Evaluation note* Diagnosis Onset Date [...] high risk , antepartum acute Thrombocytopenia acute [facility] Work Phone: Evaluation note* Diagnosis Onset Date Resolution Status Decreased movements in third trimester resolved delivery delivered acute [facility] Work Phone: Evaluation note* Diagnosis Onset Date Resolution Status Decreased movements in third trimester resolved delivery delivered acute delivery delivered acute Postop check noneactive Dysuria noneactive [facility] Work Phone: Summary Purpose Family History No Family History Records FoundNo Family History Records FoundNo Family History Records Found Advance Directives No Advanced Directives Records Found Advance Directive Response Recorded Date/ Time Living Will No January 07 9:56am 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 DATE CREATED AUTHOR AUTHOR'S ORGANIZ ATION 09/18/2023 [facility] DATE CREATED AUTHOR AUTHOR'S ORGANIZ ATION 12/12/2024 [facility] Goals (unrecognized section and content) Goals [...] Physician Primary Care Provider Active Yumiko Garvey VP SECURITIES, VP [employer]-C Attending Provider Active Team Status: Inactive Member [...] Refer ring Provider Active Yumiko Garvey NP, [employer]-C Attending Provider Active Team Status: Inactive Member [...] Care Physician Primary Care Provider Active Yumiko Gavrey VP SECURITIES, VP [employer]-C Attending Provider, Referring Provider Active FOR RECORDS [...] BASED ON THE PRIMARY CLINICAL RECORDS. [facility] provides no warranty or guarantee of the accuracy or completeness of information in this document.
== END | disposition home or self-care (01) ==
LOC: LABSPEC 16:54
PROVIDERS: Referring Provider Nurse Practitioner Family; Visit Provider Nurse Practitioner Family
DX: Z12.4 Encounter for screening for malignant neoplasm of cervix (principal)
CPT/HCPCS: 88175; G0145